=== PATIENT | male | born 1940 | race Caucasian/White ===

== ENCOUNTER 2020-02-08 10:39 | Outpatient (REF) | payer MEDICARE, SELFPAY ==
[2020-02-08 12:01] LABS: Basophils Percent Auto 0.4 % (0-2); Eosinophils Absolute Auto 0.1 X10*3/uL (0.0-0.4); Eosinophils Percent Auto 0.6 % (0-4); Hematocrit 48.6 % (42-52); Hemoglobin 16.7 g/dl (14.0-18.0); Imm Gran Abs Auto 0.03 X10*3/uL (0.00-0.03); Imm Gran Pct Auto 0.4 % (0.0-0.4); Lymphocytes Absolute Auto 1.2 X10*3/uL (1.2-4.9); MANUAL DIFF FLAG NO; Mean Corpuscular HGB Conc 34.4 g/dl (31.0-36.0); Mean Corpuscular Hemoglobin 31.6 pg (27.0-33.0); Mean Platelet Volume 9.8 fL (9.4-12.4); Monocytes Absolute Auto 0.5 X10*3/uL (0.1-1.2); Monocytes Percent Auto 6.7 % (2-11); Neutrophils Absolute Auto 5.9 X10*3/uL (2.0-8.3); Neutrophils Percent Auto 75.9 % (45-73); Platelet Count 180 X10*3/uL (160-400); Red Blood Count 5.28 X10*6/uL (4.60-5.80); Red Cell Distribution Width 12.3 % (11.0-16.0); White Blood Count 7.7 X10*3/uL (4.8-10.8)
[2020-02-08 12:25] LABS: Alanine Aminotransferase 28 U/L (0-40); Albumin Level 4.2 g/dL (3.5-5.0); Alkaline Phosphatase 67 U/L (39-117); Anion Gap 14 (12-20); Aspartate Amino Transferase 20 U/L (5-37); Bilirubin Total 0.6 mg/dL (0.0-1.0); Blood Urea Nitrogen 15 mg/dL (9-16); Calcium 8.9 mg/dL (8.4-10.2); Carbon Dioxide 28 mmol/L (22-29); Chloride 100 mmol/L (96-108); Cholesterol 153 mg/dL; Estimated Glomerular Filt Rate > 60; Glucose Fasting 111 mg/dL (60-99); HDL Cholesterol 47 mg/dL; LDL Cholesterol Calculated 87 mg/dl; Potassium 3.9 mmol/l (3.3-5.1); Sodium 138 mmol/L (135-145); Total Protein 7.2 g/dL (6.5-8.0); Triglycerides 96 mg/dL
[2020-02-08 12:38] LABS: Glucose Urine UA NEG (NEG); Leukocyte Esterase Urine NEG (NEG); Nitrite Urine NEG (NEG); PH 6.5 (5.0-8.0); Urine Blood NEG (NEG); Urine Ketones NEG (NEG); Urine Protein NEG (NEG-TRACE)
[2020-02-08 12:39] LABS: Appearance Urine CLEAR; Color Urine YELLOW
[2020-02-08 12:48] LABS: T4 Thyroxine 8.3 ug/dL (4.5-12.0); Thyroid Stimulating Hormone 2.35 uIU/mL (0.32-4.0)
[2020-02-08 12:58] LABS: Folate 19.3 ng/mL (> or = 4.0); Vitamin B12 616 pg/mL (200-900)
== END 2020-02-08 10:40 | disposition home or self-care (01) ==
LOC: HO.LAB 10:39
PROVIDERS: PCP Internal Medicine; Visit Provider Internal Medicine
DX: R33.9 Retention of urine, unspecified (principal); J44.9 Chronic obstructive pulmonary disease, unspecified; G40.909 Epilepsy, unspecified, not intractable, without status epilepticus; F41.9 Anxiety disorder, unspecified; N40.0 Benign prostatic hyperplasia without lower urinary tract symptoms; I10 Essential (primary) hypertension
CPT/HCPCS: 36415; 80053; 80061; 81003; 82607; 82746; 84436; 84443; 85025

== ENCOUNTER 2022-02-05 16:16 | Inpatient (IN) | payer MEDICARE, SELFPAY ==
--- NOTE | ~2022-02-05 | CT_ITS ---
EXAMINATION: NONCONTRAST HEAD CT NONCONTRAST CERVICAL SPINE CT INDICATION INFORMATION: Fall. Head strike. COMPARISON: 04/12/2012 TECHNIQUE: Separate noncontrast CT examinations of the head and cervical spine were performed. Coronal and sagittal images were created for each examination at the technologist workstation. This CT examination was performed using dose optimization techniques as appropriate, variously including the following: *Automated exposure control *Adjustment of mA and/or kV according to patient size (this includes techniques or standardized protocols for targeted exams where dose is matched to indication/reason for exam; i.e. extremities or head) *Use of iterative reconstruction technique DLP: 1062 mGy-cm FINDINGS: Head: There is no evidence of acute intracranial hemorrhage or territorial infarction. No abnormal mass effect or midline shift is seen. [place]keon to white matter differentiation is well preserved. No extra-axial fluid collections are identified. No hydrocephalus. Proportional prominence of the ventricles and sulcal spaces is consistent with mild volume loss. Patchy periventricular and deep white matter hypoattenuation is consistent with mild small vessel ischemic changes. Calcifications along the falx and tentorium are progressed from prior imaging. No acute osseous or soft tissue abnormality. Mild mucoperiosteal thickening of the right maxillary sinus. The mastoid air cells and visualized portions of the paranasal sinuses are otherwise well aerated. Cervical spine: There is anatomic alignment of the vertebral bodies and posterior elements. The atlantoaxial and atlantooccipital articulations are intact. Vertebral body heights are maintained. There is multilevel intervertebral disc space narrowing with endplate osteophyte formation and facet arthropathy. Calcific pannus at the dens. No evidence of acute fracture. No prevertebral soft tissue swelling. Emphysema at the lung apices.. The thyroid gland is unremarkable. CT/CT cervical spine wo IV con IMPRESSION: 1. No acute intracranial finding. 2. No acute fracture or malalignment of the cervical spine. Moderate degenerative changes.
--- NOTE | ~2022-02-05 | CT_ITS ---
EXAMINATION: CT CHEST WITH CONTRAST CT ABDOMEN AND PELVIS WITH CONTRAST CLINICAL INFORMATION: Fall. Diminished breath sounds at the right apex. Abdominal trauma. COMPARISON: None. TECHNIQUE: Multidetector volumetric imaging was performed through the chest, abdomen and pelvis following the administration of 85 mL of Omnipaque 350 intravenous contrast. Sagittal and coronal reformatted images were obtained on the technologist's workstation. Axial MIP volume rendering provided. This CT examination was performed using dose optimization techniques as appropriate, variously including the following: *Automated exposure control *Adjustment of mA and/or kV according to patient size (this includes techniques or standardized protocols for targeted exams where dose is matched to indication/reason for exam; i.e. extremities or head) *Use of iterative reconstruction technique DLP: 1091 mGy-cm. FINDINGS: CHEST: Lungs: The central airways are patent. There is filling defect in the right lower lobe bronchus extending into the more distal bronchi with bronchial wall thickening. This can be seen with aspiration. There is severe centrilobular and paraseptal emphysema which is greatest at the lung apices. Dependent bilateral atelectasis. No pneumothorax. No pleural effusion. Mediastinum: The heart is of normal size. There is no pericardial effusion. Central vascular structures are unremarkable. No hilar or mediastinal lymphadenopathy. Coronary Artery Calcification: Present. Chest Wall/Axilla: No lymphadenopathy. No chest wall mass. ABDOMEN/PELVIS: Liver, Gallbladder, Biliary Tree: The liver is normal in size, shape, and attenuation. No focal hepatic lesion. Cholecystectomy with mild intrahepatic and extrahepatic biliary ductal dilatation. No definite ductal filling defect seen. Pancreas: Unremarkable. Spleen: Unremarkable. Adrenal Glands: Thickening of both adrenal glands with no focal nodule identified. Kidneys and Ureters: The kidneys are normal in size, shape, and attenuation. No hydronephrosis, hydroureter or calculi seen. No perinephric stranding. Left lower pole simple cyst. No follow-up imaging recommended. Bladder: Distended bladder without wall thickening. Gastrointestinal Tract: The stomach is unremarkable. Normal caliber small bowel. No obstruction. Colonic diverticulosis without diverticulitis. No colonic wall thickening or adjacent inflammation. No free air or free fluid. The appendix is unremarkable. Abdominal Wall: No hernia is demonstrated. Lymphovascular Structures: Lymph nodes: Normal. Vascular: Normal caliber aorta with mild atherosclerotic calcification. Retroaortic left renal vein. Pelvic Viscera: The prostate and seminal vesicles are unremarkable. OSSEOUS STRUCTURES: No acute or suspicious osseous abnormality. Vertebral body height and alignment maintained. Diffuse endplate osteophytes are present. Motion limits evaluation of the ribs with no definite displaced rib fracture identified. Mild degenerative changes of the hips. CT/CT abdomen pelvis w IV con IMPRESSION: 1. No acute traumatic finding of the chest, abdomen, or pelvis. 2. Severe emphysema. Filling defect in the right lower lobe bronchus with bronchial wall thickening. This can be seen with aspiration. 3. No acute fracture or malalignment of the spine.
--- NOTE | ~2022-02-05 | XR_ITS ---
EXAMINATION: XR CHEST CLINICAL INFORMATION: Trauma with fall COMPARISON: 01/25/2019 TECHNIQUE: Frontal view of the chest was obtained. FINDINGS: No significant abnormality is noted involving the heart, lungs, mediastinum, bony thorax or soft tissues. No acute rib fractures. Some old healed right seventh and eighth rib fractures are present. Mild degenerative changes noted in the spine and shoulders. XR/XR chest 1V IMPRESSION: No acute intrathoracic disease.
--- NOTE | 2022-02-05 16:20 | ECG_ITS ---
Test Reason : FALL WEAKNESS Blood Pressure : / mmHG Vent. Rate : 084 BPM Atrial Rate : 084 BPM P-R Int : 140 ms QRS Dur : 126 ms QT Int : 434 ms P-R-T Axes : 068 067 058 degrees QTc Int : 512 ms Normal sinus rhythm RSR' or QR pattern in V1 suggests right ventricular conduction delay Low voltage QRS Abnormal ECG When compared with ECG of 26-JAN-2019 08:57, Non-specific intra-ventricular conduction block has replaced Right bundle branch block Referred By: Khushboo Church Electronically Signed By:ROSELYN PARKS MD
--- NOTE | 2022-02-05 16:21 | ED.GENADULT ---
HPI - General Adult General Chief complaint: General Medical Stated complaint: fall unknown time weakness Source: patient and EMS Mode of arrival: EMS Limitations: other (Patient poor historian) History of Present Illness HPI narrative: 82-year-old male history of anxiety, hypercholesterolemia, BPH, COPD, hypertension , PVD, seizure disorder presenting to the emergency department via ambulance for complaints of weakness status post falling off of his bed. Patient reports last night he felt sleepy got tangled in his blankets and ended up falling onto the ground, patient tells me he was too weak to get up, he tells me he was trying all day however unable to. Patient tells me he has been feeling weak for a while, patient reports living at home by himself. He tells me when he fell he did not his head or lose consciousness. Patient tells me he feels awful and every things hurting. He denies chest pain, shortness of breath, nausea, vomiting, abdominal pain, vision changes, headache, dizziness. Patient used to be on blood thinners however tells me he is no longer taking them. To note patient poor historian, vague historian Related Data Home Medications Medication Instructions Recorded Confirmed aspirin 81 mg tablet,delayed 81 mg PO DAILY 02/17/20 08/17/20 release (Adult Aspirin Regimen) melatonin 10 mg capsule 10 mg PO BEDTIME PRN 02/17/20 08/17/20 Previous Rx's Medication Instructions Recorded aclidinium bromide 400 1 inh inhalation Q12H 90 days #3 ea 09/06/20 mcg/actuation breath activated powder inhaler (Tudorza Pressair) polyethylene glycol 3350 17 17 g PO DAILY 30 days #510 grams 09/14/20 gram/dose oral powder (Miralax) levetiracetam 500 mg tablet 500 mg PO BID #180 tabs 01/26/21 trazodone 50 mg tablet 200 mg PO BEDTIME PRN for insomnia 03/19/21 #360 tabs lorazepam 0.5 mg tablet 0.5 mg PO BEDTIME PRN anxiety #90 06/06/21 tabs mirtazapine 15 mg tablet 15 mg PO BEDTIME 90 days #90 tabs 06/06/21 tamsulosin 0.4 mg capsule 0.4 mg PO DAILY 90 days #90 caps 06/06/21 hydrochlorothiazide 25 mg tablet 25 mg PO DAILY #90 tabs 07/17/21 Allergies Allergy/AdvReac Type Severity Reaction Status Date / Time No Known Allergies Allergy Verified 02/05/22 19:19 Review of Systems Review of Systems: Constitutional : No Weight loss, No Fever, No Chills, + Fatigue, + Malaise ENT/Mouth : No sore throat, No Rhinorrhea Eyes: No Eye Pain, No Swelling, No Redness Cardiovascular : No Chest Pain, No SOB, No Dyspnea on Exertion, No Orthopnea, No Edema, No Palpitations Respiratory : No Cough, No Sputum, No Wheezing Gastrointestinal : No Nausea, No Vomiting, No Diarrhea, No Constipation, No abdominal Pain, No Hematochezia, No Melena Genitourinary : No Dysuria, No Urinary Frequency, No Hematuria, Musculoskeletal : + joint pain, No Myalgias, No Joint Swelling Skin : No Skin Lesions, No rash Neuro : + Weakness, No Numbness, No Dizziness, No Headache Psych : No Anxiety/Panic, No Depression All other systems reviewed and are negative Yes all other systems are reviewed and are negative [facility] Past Medical History Attestation statement: The following information was validated with the patient. Source: old records reviewed and nursing notes reviewed Medical History Anxiety BPH (benign prostatic hyperplasia) COPD (chronic obstructive pulmonary disease) Hygroma Hypercholesterolemia Hypertension Impaired glucose tolerance Insomnia Peripheral vascular disease Seizure disorder Surgical History Back pain with history of spinal surgery History of cataract surgery History of cholecystectomy History of nasal surgery History of ventral hernia repair Family History Family History Father Cancer Mother Hypertension Social History Social History Advance Directives: No Advance Directives Information Provided: No Physical Exam ED Vital Signs: Vital Signs - 24 hr 02/05/22 19:50 02/05/22 19:21 02/05/22 20:17 Pulse Rate 80 84 Respiratory Rate 18 Blood Pressure 93/54 L 111/68 128/73 Pulse Oximetry 94 Oxygen Delivery Method Room Air BMI result Body Mass Index 19.5 vss Appearance: Alert.? Oriented X3.? No acute distress.? Patient appears weak and frail. Unkempt. Head: Normocephalic, atraumatic, no step-offs or deformities Eyes: Pupils equal, round and reactive to light.? Neck: Normal inspection.? Neck supple.? CVS: Normal heart rate and rhythm.? Pulses normal.? Respiratory: No respiratory distress.? Breath sounds diminished b./l.? Abdomen: Soft and nontender.? Skin: Skin warm and dry.? Normal skin color.? Normal skin turgor.? Extremities: No lower extremity edema.? No calf ttp. Global weakness. Unable to lift lower extremities off bed, no foot drop. Full painless ROM to b/l UE. Normal sensation to UE & LE. Patient tells me he feels too weak to ambulate. Back: No midline tenderness. Full ROM Neuro: Oriented X 3.? No motor deficit.? No sensory deficit. CN 2-12 intact. No saddle paresthesias Course Reevaluation(s) Reevaluation #1: Patient noted to have elevated white blood cell count 13.6, BUN slightly elevated likely secondary to dehydration. Negative lactic acid. Urine clean. Creatinine kinase not showing rhabdomyolysis. Troponin not meeting criteria for doubling the delta, unlikely ACS. BNP 115. CT of the head, neck, abdomen and pelvis with no acute findings. Patient's chest CT concerning for pneumonia possible aspiration. Will cover with Unasyn. Patient with global weakness and aspiration pneumonia will admit to hospitalist for further evaluation and treatment. Time: 21:02 Medications Administered Discontinued Medications Generic Name Dose Route Start Last Admin Trade Name Freq PRN Reason Stop Dose Admin Sodium Chloride 1,000 mls @ 999 mls/hr 02/05/22 18:45 02/05/22 20:15 Ns IV 02/05/22 19:45 Infused .Q1H1M VARUN Infusion Iohexol 100 ml 02/05/22 19:16 02/05/22 19:17 Iohexol 350 Mg/Ml 100 Ml Infus..Btl IV 02/05/22 19:17 85 ml ONCE ONE Administration Medical Decision Making MDM Narrative Medical decision making narrative: 1630 82-year-old male presents status post falling out of his bed unknown down time, patient not on blood thinners. Patient reporting weakness. No other medical complaints at this time. Physical exam significant for frail-appearing male with global weakness. Unable to lift lower extremities off bed, no foot drop. Full painless ROM to b/l UE. Normal sensation to UE & LE. Diminished breath sounds bilaterally. Regular rate and rhythm. Abdomen soft nontender nondistended. Neuro nonfocal. Normal sensation to upper and lower extremities. No back pain. Concerns for possible UTI,PNA electrolyte abnormalities. Will obtain basic labs, imaging, salgado scans, CPK to rule out rhabdo. Will obtain EKG to look for potential dysrhythmias. Based off patient's examination low suspicion for intracranial hemorrhage or stroke on arrival GCS of 15. In unable to assess accurate NIH stroke scale as patient was unable to lift his lower extremities off of the bed secondary to weakness. Also concern for possible pelvic injury secondary to patient not being able to lift lower extremities off of the bed. Will rule out traumatic injuries, internal bleeding . Patient will be placed on continuous cardiac monitoring. Will wait to initiate fluids until BNP is obtained. Ariadne BACON. Medical Records Medical records reviewed: Yes I reviewed the patient's medical records. Lab Data Lab results reviewed: Yes I reviewed the patient's lab results. Result diagrams: 02/05/22 17:29 02/05/22 17:29 Labs: Lab Results 02/05/22 02/05/22 02/05/22 Range/Units 16:55 17:29 17:29 WBC 13.6 H (4.8-10.8) X10*3/uL RBC 5.18 (4.60-5.80) X10*6/uL Hgb 16.1 (14.0-18.0) g/dl Hct 45.2 (42.0-52.0) % MCV 87.3 (80.0-98.0) fL MCH 31.1 (27.0-33.0) pg MCHC 35.6 (31.0-36.0) g/dl RDW 12.5 (11.0-16.0) % Plt Count 153 L (160-400) X10*3/uL MPV 9.5 (9.4-12.4) fL Immature Gran % (Auto) 0.6 H (0.0-0.4) % Neut % (Auto) 91.8 H (45-73) % Lymph % (Auto) 2.7 L (20-40) % [place] % (Auto) 4.8 (2-11) % Eos % (Auto) 0.0 (0-4) % Baso % (Auto) 0.1 (0-2) % Lymph # (Auto) 0.4 L (1.2-4.9) X10*3/uL [place] # (Auto) 0.7 (0.1-1.2) X10*3/uL Eos # (Auto) 0.0 (0.0-0.4) X10*3/uL Baso # (Auto) 0.0 (0.0-0.2) X10*3/uL Abs Immat Gran (auto) 0.08 H (0.00-0.03) X10*3/uL Absolute Neuts (auto) 12.5 H (2.0-8.3) x10*3/uL Absolute Nucleated RBC 0.000 (0.0-0.012) X10*3/uL Nucleated RBC % (auto) 0.0 (0.0-0.2) /100WBC Smear Tech's Comments VERIFIED PT 15.1 H (10.0-13.1) SEC INR 1.3 H (0.9-1.1) Sodium 134 L (135-145) mmol/L Potassium 4.0 (3.3-5.1) mmol/L Chloride 99 (96-108) mmol/L Carbon Dioxide 19 L (22-29) mmol/L Anion Gap 20 (12-20) BUN 21 H (9-16) mg/dL Creatinine 0.82 (0.5-1.4) mg/dL Estim Creat Clear Calc 59.8 Estimated GFR > 60 Random Glucose 119 H (60-115) mg/dL Lactic Acid (0.5-2.0) mmol/L Calcium 9.0 (8.4-10.2) mg/dL Magnesium 1.9 (1.6-2.6) mg/dL Total Bilirubin 0.3 (0.0-1.0) mg/dL AST 23 (5-37) U/L ALT 17 (0-40) U/L Alkaline Phosphatase 65 (39-117) U/L Total Creatine Kinase 394 H (38-174) U/L Troponin I High Sens (<3.5-35.0) ng/L B-Natriuretic Peptide (<100) pg/mL Total Protein 6.9 (6.5-8.0) g/dL Albumin 3.9 (3.5-5.0) g/dL Urine Color Urine Appearance Urine pH (5.0-9.0) Ur Specific [place] (1.005-1.025) Urine Protein (Neg-Trace) mg/dL Urine Glucose (UA) (Negative) mg/dL Urine Ketones (Negative) mg/dL Urine Blood (Negative) Urine Nitrite (Negative) Ur Leukocyte Esterase (Negative) Urine RBC (0-2) /HPF Urine WBC (0-5) /HPF Ur Squamous Epith Cells (0-2) /HPF Urine Bacteria (None Seen) Hyaline Casts (0-2) /LPF 02/05/22 02/05/22 02/05/22 Range/Units 17:29 17:29 19:29 WBC (4.8-10.8) X10*3/uL RBC (4.60-5.80) X10*6/uL Hgb (14.0-18.0) g/dl Hct (42.0-52.0) % MCV (80.0-98.0) fL MCH (27.0-33.0) pg MCHC (31.0-36.0) g/dl RDW (11.0-16.0) % Plt Count (160-400) X10*3/uL MPV (9.4-12.4) fL Immature Gran % (Auto) (0.0-0.4) % Neut % (Auto) (45-73) % Lymph % (Auto) (20-40) % [place] % (Auto) (2-11) % Eos % (Auto) (0-4) % Baso % (Auto) (0-2) % Lymph # (Auto) (1.2-4.9) X10*3/uL [place] # (Auto) (0.1-1.2) X10*3/uL Eos # (Auto) (0.0-0.4) X10*3/uL Baso # (Auto) (0.0-0.2) X10*3/uL Abs Immat Gran (auto) (0.00-0.03) X10*3/uL Absolute Neuts (auto) (2.0-8.3) x10*3/uL Absolute Nucleated RBC (0.0-0.012) X10*3/uL Nucleated RBC % (auto) (0.0-0.2) /100WBC Smear Tech's Comments PT (10.0-13.1) SEC INR (0.9-1.1) Sodium (135-145) mmol/L Potassium (3.3-5.1) mmol/L Chloride (96-108) mmol/L Carbon Dioxide (22-29) mmol/L Anion Gap (12-20) BUN (9-16) mg/dL Creatinine (0.5-1.4) mg/dL Estim Creat Clear Calc Estimated GFR Random Glucose (60-115) mg/dL Lactic Acid 1.9 (0.5-2.0) mmol/L Calcium (8.4-10.2) mg/dL Magnesium (1.6-2.6) mg/dL Total Bilirubin (0.0-1.0) mg/dL AST (5-37) U/L ALT (0-40) U/L Alkaline Phosphatase (39-117) U/L Total Creatine Kinase (38-174) U/L Troponin I High Sens 11.9 (<3.5-35.0) ng/L B-Natriuretic Peptide 115 H (<100) pg/mL Total Protein (6.5-8.0) g/dL Albumin (3.5-5.0) g/dL Urine Color Urine Appearance Urine pH (5.0-9.0) Ur Specific [place] (1.005-1.025) Urine Protein (Neg-Trace) mg/dL Urine Glucose (UA) (Negative) mg/dL Urine Ketones (Negative) mg/dL Urine Blood (Negative) Urine Nitrite (Negative) Ur Leukocyte Esterase (Negative) Urine RBC (0-2) /HPF Urine WBC (0-5) /HPF Ur Squamous Epith Cells (0-2) /HPF Urine Bacteria (None Seen) Hyaline Casts (0-2) /LPF 02/05/22 02/05/22 02/05/22 Range/Units 19:29 20:15 20:15 WBC (4.8-10.8) X10*3/uL RBC (4.60-5.80) X10*6/uL Hgb (14.0-18.0) g/dl Hct (42.0-52.0) % MCV (80.0-98.0) fL MCH (27.0-33.0) pg MCHC (31.0-36.0) g/dl RDW (11.0-16.0) % Plt Count (160-400) X10*3/uL MPV (9.4-12.4) fL Immature Gran % (Auto) (0.0-0.4) % Neut % (Auto) (45-73) % Lymph % (Auto) (20-40) % [place] % (Auto) (2-11) % Eos % (Auto) (0-4) % Baso % (Auto) (0-2) % Lymph # (Auto) (1.2-4.9) X10*3/uL [place] # (Auto) (0.1-1.2) X10*3/uL Eos # (Auto) (0.0-0.4) X10*3/uL Baso # (Auto) (0.0-0.2) X10*3/uL Abs Immat Gran (auto) (0.00-0.03) X10*3/uL Absolute Neuts (auto) (2.0-8.3) x10*3/uL Absolute Nucleated RBC (0.0-0.012) X10*3/uL Nucleated RBC % (auto) (0.0-0.2) /100WBC Smear Tech's Comments PT (10.0-13.1) SEC INR (0.9-1.1) Sodium (135-145) mmol/L Potassium (3.3-5.1) mmol/L Chloride (96-108) mmol/L Carbon Dioxide (22-29) mmol/L Anion Gap (12-20) BUN (9-16) mg/dL Creatinine (0.5-1.4) mg/dL Estim Creat Clear Calc Estimated GFR Random Glucose (60-115) mg/dL Lactic Acid (0.5-2.0) mmol/L Calcium (8.4-10.2) mg/dL Magnesium (1.6-2.6) mg/dL Total Bilirubin (0.0-1.0) mg/dL AST (5-37) U/L ALT (0-40) U/L Alkaline Phosphatase (39-117) U/L Total Creatine Kinase 297 H (38-174) U/L Troponin I High Sens 15.3 (<3.5-35.0) ng/L B-Natriuretic Peptide (<100) pg/mL Total Protein (6.5-8.0) g/dL Albumin (3.5-5.0) g/dL Urine Color Yellow Urine Appearance Clear Urine pH 5.5 (5.0-9.0) Ur Specific [place] 1.015 (1.005-1.025) Urine Protein Negative (Neg-Trace) mg/dL Urine Glucose (UA) Negative (Negative) mg/dL Urine Ketones 40 (Negative) mg/dL Urine Blood Small (1+) H (Negative) Urine Nitrite Negative (Negative) Ur Leukocyte Esterase Negative (Negative) Urine RBC 6-10 H (0-2) /HPF Urine WBC 0-5 (0-5) /HPF Ur Squamous Epith Cells 0-2 (0-2) /HPF Urine Bacteria None Seen (None Seen) Hyaline Casts 0-2 (0-2) /LPF ECG Data Attestation: I personally reviewed and interpreted this ECG as follows: Prior ECG tracings: available for review Interpretation: Patient's EKG with rate of 84, AR normal, QRS normal, QT/QTC normal. EKG with normal sinus rhythm no ST elevations or inversions concerning for ischemia. No significant changes when compared to previous Critical Care Time Critical Care Time Critical Care Time: No Discharge Plan Discharge Clinical Impression: Fall, Aspiration pneumonia, Weakness Patient Disposition: Admitted As Inpatient
[2022-02-05 16:24] VITALS: BMI 19.5
[2022-02-05 17:09] LABS: INTERNATIONAL NORM RATIO 1.3 (0.9-1.1); Prothrombin Time 15.1 SEC (10.0-13.1)
[2022-02-05 17:53] LABS: Basophils Percent Auto 0.1 % (0-2); Hematocrit 45.2 % (42.0-52.0); Hemoglobin 16.1 g/dl (14.0-18.0); Imm Gran Abs Auto 0.08 X10*3/uL (0.00-0.03); Imm Gran Pct Auto 0.6 % (0.0-0.4); Lymphocytes Absolute Auto 0.4 X10*3/uL (1.2-4.9); Lymphocytes Percent Auto 2.7 % (20-40); MANUAL DIFF FLAG SCAN; Mean Corpuscular HGB Conc 35.6 g/dl (31.0-36.0); Mean Corpuscular Hemoglobin 31.1 pg (27.0-33.0); Mean Corpuscular Volume 87.3 fL (80.0-98.0); Mean Platelet Volume 9.5 fL (9.4-12.4); Monocytes Absolute Auto 0.7 X10*3/uL (0.1-1.2); Monocytes Percent Auto 4.8 % (2-11); Neutrophils Absolute Auto 12.5 x10*3/uL (2.0-8.3); Neutrophils Percent Auto 91.8 % (45-73); Platelet Count 153 X10*3/uL (160-400); Red Blood Count 5.18 X10*6/uL (4.60-5.80); Red Cell Distribution Width 12.5 % (11.0-16.0); SCAN SMEAR FLAG 1; White Blood Count 13.6 X10*3/uL (4.8-10.8)
[2022-02-05 17:55] LABS: Alanine Aminotransferase 17 U/L (0-40); Albumin Level 3.9 g/dL (3.5-5.0); Alkaline Phosphatase 65 U/L (39-117); Anion Gap 20 (12-20); Aspartate Amino Transferase 23 U/L (5-37); Bilirubin Total 0.3 mg/dL (0.0-1.0); Blood Urea Nitrogen 21 mg/dL (9-16); Carbon Dioxide 19 mmol/L (22-29); Chloride 99 mmol/L (96-108); Creatinine Clr Calc Pharmacy 59.8; Estimated Glomerular Filt Rate > 60; Glucose Random 119 mg/dL (60-115); Magnesium 1.9 mg/dL (1.6-2.6); Sodium 134 mmol/L (135-145); Total Protein 6.9 g/dL (6.5-8.0)
[2022-02-05 18:00] LABS: B Type Natriuretic Peptide 115 pg/mL (<100)
[2022-02-05 18:04] LABS: Troponin-I High Sensitivity 11.9 ng/L (<3.5-35.0)
[2022-02-05 18:12] LABS: SLIDE REVIEW VERIFIED
[2022-02-05] MEDS: iohexoL 350 MG/ML 100 ML INFUS..BTL IV (19:17)
[2022-02-05] MEDS: 0.9 % Sodium Chloride 1,000 ML 999 ML IV (19:18)
[2022-02-05 19:21] VITALS: BP 111/68; PULSE 84
[2022-02-05 19:43] LABS: Appearance Urine Clear; Color Urine Yellow; Glucose Urine UA Negative (Negative); Leukocyte Esterase Urine Negative (Negative); Nitrite Urine Negative (Negative); PH 5.5 (5.0-9.0); Specific Gravity - Urine 1.015 (1.005-1.025); UMIC TRIGGER UACC YES; Urine Blood Small (1+) (Negative); Urine Ketones 40 mg/dL (Negative); Urine Protein Negative (Neg-Trace)
[2022-02-05 19:49] LABS: Bacteria Urine None Seen (None Seen); Hyaline Casts Urine 0-2 /LPF (0-2); Lactic Acid 1.9 mmol/L (0.5-2.0); Squamous Epithelial Cell Urine 0-2 /HPF (0-2); WBC Urine 0-5 /HPF (0-5)
[2022-02-05 19:50] VITALS: BP 93/54; PULSE 80; RESP 18; O2SAT 94
[2022-02-05 20:17] VITALS: BP 128/73
[2022-02-05 20:49] LABS: Troponin-I High Sensitivity 15.3 ng/L (<3.5-35.0)
[2022-02-05] MEDS: Ampicillin Sodium/Sulbactam Na 3 GM in 0.9 % Sodium Chloride 100 ML IV (21:32)
--- NOTE | 2022-02-05 21:55 | PHA.MEDREC ---
Pharmacy Consult ? Medication Reconciliation Pharmacy has completed the medication reconciliation. Patient knew medication. Stated he was on HCTZ but ran out and hasn't been to in 2 years
--- NOTE | 2022-02-05 22:17 | PM.IMHP ---
History of Present Illness Date of Service: 02/05/22 Chief Complaint: suicide attempt, weakness, fall, pna This is an 82-year-old male with past medical history of COPD, BPH, depression anxiety, HLD, HTN, peripheral vascular disease, and history of seizure disorder,. The initial story I was presented with was that patient had come in to the hospital via ambulance with complaints of weakness and fall. He reported to the ED that he had fallen off his bed and that he was on the floor for unknown period of time. When I interviewed the patient, and asked about his presentation, he reports that he came into the hospital because he tired to take my life again . When asked more about it, he reports that he took 25 pills of aspirin, 15 pills of antidepressant, 20 pills of melatonin. He reports that he was trying to sleep, had difficulty sleeping, woke up at 04:00, with urinary urgency, could not pee, felt very depressed, and took these medications to see if they could help him sleep. He reports a chronic smoker's cough, shortness of breath that is SP his baseline, sputum production at baseline. He at this time denies any chest pain, no palpitations, no headache or change in vision, no abdominal pain nausea or vomiting, no diarrhea constipation, no urinary symptoms and no lower extremity edema. He reports that he has been feeling significantly more depressed about his state. He lives alone. Patient denies suicidal ideation at this time. He does report difficulty swallowing some foods and feels that some things sometimes get stuck in his throat. On arrival to the ED hemodynamically stable with no significant abnormal vitals Labs are significant for WBC count of 13.6, pH of 7.45, sodium of 134, CPK of 394, BNP of 115, UA negative, after we were told that the patient took 20 pills of aspirin, salicylate level was checked which was found to be 40.6, urine drug screen negative. Chest CT shows severe emphysema, filling defect in the right lower lobe bronchus with bronchial wall thickening seen with aspiration. Poison control was called, and patient will be admitted for further management. Review of Systems Review of Systems: Yes all other systems are reviewed and are negative [facility] Medical History Anxiety BPH (benign prostatic hyperplasia) COPD (chronic obstructive pulmonary disease) Hygroma Hypercholesterolemia Hypertension Impaired glucose tolerance Insomnia Peripheral vascular disease Seizure disorder Family History Father Cancer Mother Hypertension Surgical History Back pain with history of spinal surgery History of cataract surgery History of cholecystectomy History of nasal surgery History of ventral hernia repair Social History Advance Directives: No Advance Directives Information Provided: No Meds Allergies Allergy/AdvReac Type Severity Reaction Status Date / Time No Known Allergies Allergy Verified 02/05/22 19:19 Active Medications: Current Medications Pharmacy Consult (Consult Rx Perform Med Rec) 1 each MISCELLANE ONCE PRN PRN Reason: Consult order Home Medications Medication Instructions Recorded Confirmed Last Taken Type aspirin 81 mg tablet,delayed 81 mg PO DAILY 02/17/20 02/05/22 02/04/22 History release (Adult Aspirin Regimen) melatonin 10 mg capsule 10 mg PO BEDTIME PRN Insomnia 02/17/20 02/05/22 02/04/22 History polyethylene glycol 3350 17 17 g PO DAILY PRN Constipation 02/05/22 02/05/22 02/04/22 History gram/dose oral powder (Miralax) Physical Exam Vital Signs and Narrative: Vital Signs: Last Vital Signs Pulse 80 02/05/22 19:50 Resp 18 02/05/22 19:50 BP 128/73 02/05/22 20:17 Pulse Ox 94 02/05/22 19:50 O2 Del Method 02/05/22 19:50 BMI result Body Mass Index 19.5 Const: Other: Appears appropriate Answers questions appropriately although sometimes diverge is from Barb story but able to redirect General: cooperative and no acute distress Orientation/consciousness: patient oriented x3 Eyes: General: appearance normal, both eyes and all related structures Resp: Other: Crackles bilaterally Effort & Inspection: normal respiratory effort Cardio: Rate: regular rate Rhythm: regular rhythm GI: Palpation (GI): Soft to palpation Auscultation: normal bowel sounds Skin: General skin exam: no rashes or lesions noted Neuro: General: patient oriented x3 Cognition (Neuro): normal cognition Extrem: General: Yes normal to inspection and Yes no pedal edema Results Labs CBC and Chem 7: 02/05/22 17:29 02/06/22 03:47 Labs: Laboratory Results - last 24 hr 02/05/22 02/05/22 02/05/22 16:55 17:29 17:29 MCV 87.3 MCH 31.1 MCHC 35.6 RDW 12.5 Plt Count 153 L MPV 9.5 Immature Gran % (Auto) 0.6 H Neut % (Auto) 91.8 H Lymph % (Auto) 2.7 L [place] % (Auto) 4.8 Eos % (Auto) 0.0 Baso % (Auto) 0.1 Lymph # (Auto) 0.4 L [place] # (Auto) 0.7 Eos # (Auto) 0.0 Baso # (Auto) 0.0 Abs Immat Gran (auto) 0.08 H Absolute Neuts (auto) 12.5 H Absolute Nucleated RBC 0.000 Nucleated RBC % (auto) 0.0 Smear Tech's Comments VERIFIED PT 15.1 H INR 1.3 H Anion Gap 20 Estim Creat Clear Calc 59.8 Estimated GFR > 60 Random Glucose 119 H Lactic Acid Calcium 9.0 Magnesium 1.9 Total Bilirubin 0.3 AST 23 ALT 17 Alkaline Phosphatase 65 Total Creatine Kinase 394 H Troponin I High Sens B-Natriuretic Peptide Total Protein 6.9 Albumin 3.9 Urine Color Urine Appearance Urine pH Ur Specific [place] Urine Protein Urine Glucose (UA) Urine Ketones Urine Blood Urine Nitrite Ur Leukocyte Esterase Urine RBC Urine WBC Ur Squamous Epith Cells Urine Bacteria Hyaline Casts 02/05/22 02/05/22 02/05/22 17:29 17:29 19:29 MCV MCH MCHC RDW Plt Count MPV Immature Gran % (Auto) Neut % (Auto) Lymph % (Auto) [place] % (Auto) Eos % (Auto) Baso % (Auto) Lymph # (Auto) [place] # (Auto) Eos # (Auto) Baso # (Auto) Abs Immat Gran (auto) Absolute Neuts (auto) Absolute Nucleated RBC Nucleated RBC % (auto) Smear Tech's Comments PT INR Anion Gap Estim Creat Clear Calc Estimated GFR Random Glucose Lactic Acid 1.9 Calcium Magnesium Total Bilirubin AST ALT Alkaline Phosphatase Total Creatine Kinase Troponin I High Sens 11.9 B-Natriuretic Peptide 115 H Total Protein Albumin Urine Color Urine Appearance Urine pH Ur Specific [place] Urine Protein Urine Glucose (UA) Urine Ketones Urine Blood Urine Nitrite Ur Leukocyte Esterase Urine RBC Urine WBC Ur Squamous Epith Cells Urine Bacteria Hyaline Casts 02/05/22 02/05/22 02/05/22 19:29 20:15 20:15 MCV MCH MCHC RDW Plt Count MPV Immature Gran % (Auto) Neut % (Auto) Lymph % (Auto) [place] % (Auto) Eos % (Auto) Baso % (Auto) Lymph # (Auto) [place] # (Auto) Eos # (Auto) Baso # (Auto) Abs Immat Gran (auto) Absolute Neuts (auto) Absolute Nucleated RBC Nucleated RBC % (auto) Smear Tech's Comments PT INR Anion Gap Estim Creat Clear Calc Estimated GFR Random Glucose Lactic Acid Calcium Magnesium Total Bilirubin AST ALT Alkaline Phosphatase Total Creatine Kinase 297 H Troponin I High Sens 15.3 B-Natriuretic Peptide Total Protein Albumin Urine Color Yellow Urine Appearance Clear Urine pH 5.5 Ur Specific [place] 1.015 Urine Protein Negative Urine Glucose (UA) Negative Urine Ketones 40 Urine Blood Small (1+) H Urine Nitrite Negative Ur Leukocyte Esterase Negative Urine RBC 6-10 H Urine WBC 0-5 Ur Squamous Epith Cells 0-2 Urine Bacteria None Seen Hyaline Casts 0-2 Imaging Radiologist's Impressions: Impressions Chest X-Ray 02/05/22 18:00 IMPRESSION: No acute intrathoracic disease. Cervical Spine CT 02/05/22 19:24 IMPRESSION: 1. No acute intracranial finding. 2. No acute fracture or malalignment of the cervical spine. Moderate degenerative changes. Head CT 02/05/22 19:24 IMPRESSION: 1. No acute intracranial finding. 2. No acute fracture or malalignment of the cervical spine. Moderate degenerative changes. Abdomen/Pelvis CT 02/05/22 19:25 IMPRESSION: 1. No acute traumatic finding of the chest, abdomen, or pelvis. 2. Severe emphysema. Filling defect in the right lower lobe bronchus with bronchial wall thickening. This can be seen with aspiration. 3. No acute fracture or malalignment of the spine. Chest CT 02/05/22 19:25 IMPRESSION: 1. No acute traumatic finding of the chest, abdomen, or pelvis. 2. Severe emphysema. Filling defect in the right lower lobe bronchus with bronchial wall thickening. This can be seen with aspiration. 3. No acute fracture or malalignment of the spine. Assessment and Plan (1) Aspiration pneumonia: Status: Acute (2) Suicide attempt: Status: Acute (3) Intentional drug overdose: Status: Acute (4) Fall: Status: Acute Plan 82-year-old male with past medical history of COPD, hypertension, hyperlipidemia, anxiety and depression, peripheral vascular disease presents to the hospital after attempting to kill himself by intentionally overdosing on aspirin, antidepressant and melatonin # suicidal attempt by intentional drug overdose - reports taking 25 pills of aspirin, 15 pills on antidepressants in 20 pills of 10 mg melatonin - patient hemodynamically stable, no QTC prolongation, has salicylate level of over 40 - poison control called, requesting repeat VBG, potassium, salicylate level, 3 amps of bicarb at 150 cc an hour, - will admit to telemetry - sitter at bedside - psych consulted # aspiration pneumonia - has evidence of aspiration pneumonia, he denies having any vomiting but reports that he has difficulty swallowing - will cover him with antibiotics for aspiration pneumonia - keep NPO - consult speech # fall - likely secondary to lethargy in the setting of overdosing on melatonin and antidepressant although he does not remember the name of the antidepressant - physical therapy prior to discharge # hypertension - stable - will continue antihypertensive # hyperlipidemia - continue statin # peripheral vascular - hold aspirin # COPD - have baseline - DuoNeb p.r.n. DVT prophylaxis: Heparin subQ Given patient's drug overdose, requiring frequent lab draws, as well as aspiration pneumonia requiring speech evaluation, patient require minimal 2 night inpatient hospital stay for further management and monitoring Quality Stroke Does the patient have a stroke diagnosis?: No VTE Prior VTE?: No VTE Risk Level:: Medical - moderate - high VTE Device Contraindication: Treatment Not Indicated VTE Drug Contraindication: N/A - Med Ordered
--- NOTE | 2022-02-05 23:00 | PC.NURSE ---
Pt report taking to 25 ASA, 20 melatonin at 10 mg, and 15 of antidepressants that are unknown. Hospitalist at beside. Pt placed on 1:1
[2022-02-05 23:04] LABS: Amphetamine Screen Urine Not Detected (Not Detect); Barbiturates, Urine Not Detected (Not Detect); Benzodiazepines Screen Urine Not Detected (Not Detect); Cannabinoid Screen Urine Not Detected (Not Detect); Cocaine Screen Urine Not Detected (Not Detect); Fentanyl, urine Not Detected (Not Detect); Opiate Screen Urine Not Detected (Not Detect); Phencyclidine Screen Urine Not Detected (Not Detect)
[2022-02-05 23:07] LABS: Acetaminophen LAB < 1 mcg/mL (<30); Salicylate 40.6 mg/dL (15-30)
--- NOTE | 2022-02-05 23:31 | PC.NURSE ---
This RN called poison control spoke to Fabienne. This RN passed all recommendation from poison control to Hospitalist orders placed.
[2022-02-05 23:36] LABS: COVID-19 Test Negative (Negative); IDNOW Serial# BCCEAD1C
[2022-02-06] VITALS (11 sets, daily range): BP systolic 98–137; BP diastolic 54–81; PULSE 78–119; RESP 16–22; TEMP 36.2–37.1; O2SAT 92–97
[2022-02-06 00:08] LABS: VBG Base Excess -3.8 mmol/L; VBG HCO3 18 mmol/L (22-26); VBG pCO2 25 mmHg; VBG pH 7.45 (7.32-7.43); VBG pO2 54 mmHg
[2022-02-06 00:10] LABS: Venous Blood Gas Refer to POC result
[2022-02-06] MEDS: Lactated Ringers 1,000 ML 100 ML IVCONT ×2 (00:31→08:54)
[2022-02-06 00:43] LABS: Alanine Aminotransferase 21 U/L (0-40); Albumin Level 3.6 g/dL (3.5-5.0); Alkaline Phosphatase 61 U/L (39-117); Anion Gap 20 (12-20); Aspartate Amino Transferase 35 U/L (5-37); Bilirubin Total 0.2 mg/dL (0.0-1.0); Blood Urea Nitrogen 20 mg/dL (9-16); Calcium 8.5 mg/dL (8.4-10.2); Carbon Dioxide 17 mmol/L (22-29); Chloride 102 mmol/L (96-108); Creatinine Clr Calc Pharmacy 66.3; Estimated Glomerular Filt Rate > 60; Glucose Random 92 mg/dL (60-115); Potassium 4.4 mmol/L (3.3-5.1); Sodium 135 mmol/L (135-145); Total Protein 6.9 g/dL (6.5-8.0)
[2022-02-06] MEDS: Heparin Sodium,Porcine 5,000 UNIT/ML VIAL 5000 UNIT SUBCUT ×3 (00:47→22:35)
[2022-02-06] MEDS: Sodium Bicarbonate 8.4% 150 MEQ in Dextrose 5 % 850 ML IV (00:50)
[2022-02-06 01:05] LABS: Appearance Urine Clear; Color Urine Yellow; Glucose Urine UA Negative (Negative); Leukocyte Esterase Urine Negative (Negative); Nitrite Urine Negative (Negative); PH 5.5 (5.0-9.0); Urine Blood Negative (Negative); Urine Ketones 40 mg/dL (Negative); Urine Protein Negative (Neg-Trace)
[2022-02-06 01:15] LABS: Amphetamine Screen Urine Not Detected (Not Detect); Barbiturates, Urine Not Detected (Not Detect); Benzodiazepines Screen Urine Not Detected (Not Detect); Cannabinoid Screen Urine Not Detected (Not Detect); Cocaine Screen Urine Not Detected (Not Detect); Fentanyl, urine Not Detected (Not Detect); Opiate Screen Urine Not Detected (Not Detect); Phencyclidine Screen Urine Not Detected (Not Detect)
[2022-02-06 02:00] LABS: Venous Blood Gas Refer to POC result
[2022-02-06 02:00] LABS: VBG Base Excess -2.6 mmol/L; VBG HCO3 17 mmol/L (22-26); VBG pCO2 21 mmHg; VBG pH 7.53 (7.32-7.43); VBG pO2 112 mmHg
[2022-02-06 02:15] LABS: Potassium 3.7 mmol/L (3.3-5.1)
[2022-02-06 02:27] LABS: Salicylate 37.1 mg/dL (15-30)
--- NOTE | 2022-02-06 03:25 | ECG_ITS ---
Test Reason : poison control Blood Pressure : / mmHG Vent. Rate : 082 BPM Atrial Rate : 088 BPM P-R Int : 100 ms QRS Dur : 128 ms QT Int : 410 ms P-R-T Axes : 026 062 052 degrees QTc Int : 479 ms Poor data quality Normal sinus rhythm with 1st degree A-V block Sinus Arrhythmia Incomplete right bundle branch block Abnormal ECG When compared with ECG of 06-FEB-2022 02:11, Premature ventricular complexes is no longer Present Referred By: Sarah Boyd Electronically Signed By:ROSELYN PARKS MD
[2022-02-06 03:59] LABS: Venous Blood Gas Refer to POC result
[2022-02-06 04:01] LABS: VBG Base Excess 1.2 mmol/L; VBG HCO3 23 mmol/L (22-26); VBG pCO2 29 mmHg; VBG pO2 46 mmHg
[2022-02-06 04:19] LABS: Potassium 3.8 mmol/L (3.3-5.1)
[2022-02-06 04:30] LABS: Salicylate 35.9 mg/dL (15-30)
--- NOTE | 2022-02-06 05:25 | ECG_ITS ---
Test Reason : poison control Blood Pressure : / mmHG Vent. Rate : 089 BPM Atrial Rate : 089 BPM P-R Int : 130 ms QRS Dur : 120 ms QT Int : 412 ms P-R-T Axes : 062 067 048 degrees QTc Int : 501 ms Poor data quality, interpretation may be adversely affected Sinus rhythm with occasional Premature ventricular complexes Low voltage QRS Right bundle branch block Abnormal ECG When compared with ECG of 05-FEB-2022 17:37, Premature ventricular complexes are now Present Referred By: Sarah Boyd Electronically Signed By:ROSELYN PARKS MD
[2022-02-06] MEDS: Ampicillin Sodium/Sulbactam Na 3 GM in 0.9 % Sodium Chloride 100 ML IV ×2 (06:38→13:26)
--- NOTE | 2022-02-06 07:25 | ECG_ITS ---
Test Reason : poison control Blood Pressure : / mmHG Vent. Rate : 090 BPM Atrial Rate : 090 BPM P-R Int : 246 ms QRS Dur : 128 ms QT Int : 410 ms P-R-T Axes : 085 058 047 degrees QTc Int : 501 ms Sinus rhythm with 1st degree A-V block with occasional Premature ventricular complexes Right bundle branch block Abnormal ECG When compared with ECG of 06-FEB-2022 04:34, No significant changes seen Referred By: Sarah Boyd Electronically Signed By:ROSELYN PARKS MD
[2022-02-06] MEDS: levETIRAcetam 500 MG TABLET PO ×2 (08:54→22:35)
[2022-02-06] MEDS: Tamsulosin HCL 0.4 MG CAPSULE PO (08:54)
[2022-02-06 08:58] LABS: MANUAL DIFF FLAG NO
[2022-02-06 09:09] LABS: VBG Base Excess 1.8 mmol/L; VBG HCO3 23 mmol/L (22-26); VBG pCO2 30 mmHg; VBG pO2 102 mmHg
[2022-02-06 09:12] LABS: Venous Blood Gas Refer to POC result
[2022-02-06 09:18] LABS: Basophils Percent Auto 0.3 % (0-2); Eosinophils Percent Auto 0.4 % (0-4); Hematocrit 41.9 % (42.0-52.0); Imm Gran Abs Auto 0.06 X10*3/uL (0.00-0.03); Imm Gran Pct Auto 0.5 % (0.0-0.4); Lymphocytes Absolute Auto 0.6 X10*3/uL (1.2-4.9); Lymphocytes Percent Auto 5.7 % (20-40); Mean Corpuscular HGB Conc 35.8 g/dl (31.0-36.0); Mean Corpuscular Hemoglobin 31.5 pg (27.0-33.0); Mean Platelet Volume 10.2 fL (9.4-12.4); Monocytes Absolute Auto 0.8 X10*3/uL (0.1-1.2); Monocytes Percent Auto 7.2 % (2-11); Neutrophils Absolute Auto 9.5 x10*3/uL (2.0-8.3); Neutrophils Percent Auto 85.9 % (45-73); Platelet Count 160 X10*3/uL (160-400); Red Blood Count 4.76 X10*6/uL (4.60-5.80)
[2022-02-06 09:50] LABS: Alanine Aminotransferase 17 U/L (0-40); Albumin Level 3.5 g/dL (3.5-5.0); Alkaline Phosphatase 60 U/L (39-117); Anion Gap 16 (12-20); Aspartate Amino Transferase 24 U/L (5-37); Bilirubin Total 0.3 mg/dL (0.0-1.0); Blood Urea Nitrogen 18 mg/dL (9-16); Calcium 8.4 mg/dL (8.4-10.2); Carbon Dioxide 23 mmol/L (22-29); Chloride 100 mmol/L (96-108); Estimated Glomerular Filt Rate > 60; Glucose Random 80 mg/dL (60-115); Potassium 3.3 mmol/L (3.3-5.1); Sodium 136 mmol/L (135-145); Total Protein 6.3 g/dL (6.5-8.0)
[2022-02-06 09:54] LABS: Anion Gap 17 (12-20); Blood Urea Nitrogen 18 mg/dL (9-16); Calcium 8.4 mg/dL (8.4-10.2); Carbon Dioxide 22 mmol/L (22-29); Chloride 101 mmol/L (96-108); Creatinine Clr Calc Pharmacy 73.2; Estimated Glomerular Filt Rate > 60; Glucose Random 81 mg/dL (60-115); Potassium 3.4 mmol/L (3.3-5.1); Sodium 137 mmol/L (135-145)
[2022-02-06 09:59] LABS: Potassium 3.3 mmol/L (3.3-5.1); Salicylate 32.9 mg/dL (15-30)
--- NOTE | 2022-02-06 10:16 | MHC.CM.PN ---
IMM DELIVERED. CM MET WITH PT, LIVES IN SINGLE FAMILY HOME, RESIDES ALONE. NEPHEW AND HIS CHECK IN WITH HIM WEEKLY. USES A WALKER, CANE AND HAS MODIFICATIONS TO BR. + HCP, WILL REQUEST NEPHEW BRING IN COPY. PCP DR. DALAL AT [facility]. DP: PT IS OPEN TO HOME SERVICES IF RECOMMENDED. NE[facility]HEW WILL TRANSPORT
--- NOTE | 2022-02-06 12:00 | ECG_ITS ---
Test Reason : asprin toxicity Blood Pressure : / mmHG Vent. Rate : 082 BPM Atrial Rate : 082 BPM P-R Int : 152 ms QRS Dur : 132 ms QT Int : 428 ms P-R-T Axes : 065 072 052 degrees QTc Int : 500 ms Normal sinus rhythm Right bundle branch block Abnormal ECG When compared with ECG of 06-FEB-2022 06:33, Premature ventricular complexes are no longer Present [place] interval has decreased Referred By: Concepcion Jordan Electronically Signed By:ROSELYN PARKS MD
--- NOTE | 2022-02-06 13:08 | PM.EVENT ---
Event Note Date of Service: 02/06/22 Event Note: T/W attempted to meet with patient for psych consult, due to patient's report upon admission that he had attempted SI by swelling multiple meds. He had reported that he took 25 aspirin, 15 antidepressant, 20 melatonin. Patient confused, sitter in room. Unable to fully interview and assessed him at this time. Per chart review, patient had similar presentation 2 years ago, was seen by psych after SI attempt at that time as well. Spoke with nurse, she reports nephew told her today that he had found patient in confused state at his home. Nurse also reports he has had difficulties with simple tasks while here, question of demential onset? Vs depression? Recommendations: Continue with sitter for time being. As patient clears, please order a psych consult for capacity, dementia vs. depression. Please order CARE team eval to determine appropriate level of care, once patient medically stable. This has been shared with provider Dr. Concepcion Jordan Thank you.
[2022-02-06] MEDS: Potassium Chloride Packet 20 MEQ PACKET 40 MEQ PO (13:26)
[2022-02-06] MEDS: Potassium Chloride Packet 20 MEQ PACKET PO ×2 (15:14→18:23)
[2022-02-06 15:53] LABS: Venous Blood Gas Refer to POC result
[2022-02-06 15:54] LABS: VBG Base Excess 2.6 mmol/L; VBG HCO3 25 mmol/L (22-26); VBG pCO2 33 mmHg; VBG pH 7.48 (7.32-7.43); VBG pO2 62 mmHg
[2022-02-06 15:59] LABS: Potassium 3.7 mmol/L (3.3-5.1)
--- NOTE | 2022-02-06 16:42 | HO.PM.IMPN ---
Subjective Subjective Date of Service: 02/06/22 Interval History: suicide attempt, weakness, fall, pna Review of Systems Denies any new complaint of chest pain or shortness of breath or abdominal pain or fever or chills or nausea or vomiting Denies any cough Denies any weakness or numbness. Physical Exam Vital Signs: Vital Signs: Last Vital Signs Temp 98.6 F 02/06/22 15:29 Pulse 78 02/06/22 15:29 Resp 18 02/06/22 15:29 BP 108/59 L 02/06/22 15:29 Pulse Ox 97 02/06/22 15:29 O2 Del Method 02/06/22 15:29 O2 Flow Rate 95 02/06/22 00:15 BMI result Body Mass Index 19.5 Appearance: Alert.? Oriented X3.? anxious . cvs: rrr, [id number] . res: clear to auscultation ,no rhonchii or wheezing abd: no rebound or guarding ,nt, bs present. ext pulses present , no cyanosis . neuro: axo3 , nonfocal. Objective Data Active Medications Acetaminophen (Acetaminophen 325 Mg Tablet) 650 mg PO Q6H PRN PRN Reason: Pain, Mild (Pain Scale 1-3) Albuterol/Ipratropium (Albuterol/Iprat 2.5/0.5mg 3 Ml Ampul.Neb) 3 ml INHALE RQ4H PRN PRN Reason: Shortness of Breath/Wheezing Docusate Sodium (Docusate Sodium 100 Mg Capsule) 100 mg PO DAILY PRN PRN Reason: Constipation Heparin Sodium (Porcine) (Heparin Sodium,Porcine 5,000 Unit/Ml Vial) 5,000 unit SUBCUT Q12H [facility] Last Admin: 02/06/22 12:00 Dose: 5,000 unit Documented By: ALEXIS Ampicillin Sodium/Sulbactam (Sodium 3 gm/ Sodium Chloride) 100 mls @ 200 mls/hr IV Q8H [facility] Last Infusion: 02/06/22 15:09 Dose: 0 mls/hr Documented By: ALEXIS Sodium Bicarbonate 100 meq/ (Dextrose) 950 mls @ 150 mls/hr IV .Q6H20M [facility] Stop: 02/06/22 18:20 Last Admin: 02/06/22 13:50 Dose: 150 mls/hr Documented By: ALEXIS Sodium Bicarbonate 100 meq/ (Dextrose) 1,000 mls @ 150 mls/hr IV .Q6H40M [facility] Levetiracetam (Levetiracetam 500 Mg Tablet) 500 mg PO BID [facility] Last Admin: 02/06/22 08:54 Dose: 500 mg Documented By: ALEXIS Lorazepam (Lorazepam 0.5 Mg Tablet) 0.5 mg PO BEDTIME PRN PRN Reason: anxiety Magnesium Oxide (Magnesium Oxide 400 Mg Tablet) [facility] Ondansetron HCl (Ondansetron Hcl 4 Mg/2 Ml Vial) 4 mg IVPUSH Q8H PRN PRN Reason: Nausea and Vomiting Pharmacy Consult (Consult Rx Perform Med Rec) 1 each MISCELLANE ONCE PRN PRN Reason: Consult order Polyethylene Glycol (Polyethylene Glycol 3350 17 Gm Powd.Pack) 17 gm PO DAILY PRN PRN Reason: Constipation Tamsulosin HCl (Tamsulosin Hcl 0.4 Mg Capsule) 0.4 mg PO DAILY [facility] Last Admin: 02/06/22 08:54 Dose: 0.4 mg Documented By: ALEXIS Labs CBC & Chem 7: 02/06/22 08:44 02/06/22 15:43 Labs: Laboratory Results - last 24 hr 02/05/22 02/05/22 02/05/22 16:55 17:29 17:29 MCV 87.3 MCH 31.1 MCHC 35.6 RDW 12.5 Plt Count 153 L MPV 9.5 Immature Gran % (Auto) 0.6 H Neut % (Auto) 91.8 H Lymph % (Auto) 2.7 L [place] % (Auto) 4.8 Eos % (Auto) 0.0 Baso % (Auto) 0.1 Lymph # (Auto) 0.4 L [place] # (Auto) 0.7 Eos # (Auto) 0.0 Baso # (Auto) 0.0 Abs Immat Gran (auto) 0.08 H Absolute Neuts (auto) 12.5 H Absolute Nucleated RBC 0.000 Nucleated RBC % (auto) 0.0 Smear Tech's Comments VERIFIED PT 15.1 H INR 1.3 H VBG pH VBG pCO2 VBG pO2 VBG HCO3 VBG O2 Saturation VBG Base Excess Anion Gap 20 Estim Creat Clear Calc 59.8 Estimated GFR > 60 Random Glucose 119 H Lactic Acid Calcium 9.0 Magnesium 1.9 Total Bilirubin 0.3 AST 23 ALT 17 Alkaline Phosphatase 65 Total Creatine Kinase 394 H Troponin I High Sens B-Natriuretic Peptide Total Protein 6.9 Albumin 3.9 Urine Color Urine Appearance Urine pH Ur Specific [place] Urine Protein Urine Glucose (UA) Urine Ketones Urine Blood Urine Nitrite Ur Leukocyte Esterase Urine RBC Urine WBC Ur Squamous Epith Cells Urine Bacteria Hyaline Casts Salicylates Urine Opiates Screen Urine Fentanyl Screen Acetaminophen Ur Barbiturates Screen Ur Phencyclidine Scrn Ur Amphetamines Screen U Benzodiazepines Scrn Urine Cocaine Screen U Marijuana (THC) Screen COVID-19 (HEIDE) COVID-19 [facility] Com 02/05/22 02/05/22 02/05/22 17:29 17:29 19:29 MCV MCH MCHC RDW Plt Count MPV Immature Gran % (Auto) Neut % (Auto) Lymph % (Auto) [place] % (Auto) Eos % (Auto) Baso % (Auto) Lymph # (Auto) [place] # (Auto) Eos # (Auto) Baso # (Auto) Abs Immat Gran (auto) Absolute Neuts (auto) Absolute Nucleated RBC Nucleated RBC % (auto) Smear Tech's Comments PT INR VBG pH VBG pCO2 VBG pO2 VBG HCO3 VBG O2 Saturation VBG Base Excess Anion Gap Estim Creat Clear Calc Estimated GFR Random Glucose Lactic Acid 1.9 Calcium Magnesium Total Bilirubin AST ALT Alkaline Phosphatase Total Creatine Kinase Troponin I High Sens 11.9 B-Natriuretic Peptide 115 H Total Protein Albumin Urine Color Urine Appearance Urine pH Ur Specific [place] Urine Protein Urine Glucose (UA) Urine Ketones Urine Blood Urine Nitrite Ur Leukocyte Esterase Urine RBC Urine WBC Ur Squamous Epith Cells Urine Bacteria Hyaline Casts Salicylates Urine Opiates Screen Urine Fentanyl Screen Acetaminophen Ur Barbiturates Screen Ur Phencyclidine Scrn Ur Amphetamines Screen U Benzodiazepines Scrn Urine Cocaine Screen U Marijuana (THC) Screen COVID-19 (HEIDE) COVID-19 [facility] Com 02/05/22 02/05/22 02/05/22 19:29 19:29 20:15 MCV MCH MCHC RDW Plt Count MPV Immature Gran % (Auto) Neut % (Auto) Lymph % (Auto) [place] % (Auto) Eos % (Auto) Baso % (Auto) Lymph # (Auto) [place] # (Auto) Eos # (Auto) Baso # (Auto) Abs Immat Gran (auto) Absolute Neuts (auto) Absolute Nucleated RBC Nucleated RBC % (auto) Smear Tech's Comments PT INR VBG pH VBG pCO2 VBG pO2 VBG HCO3 VBG O2 Saturation VBG Base Excess Anion Gap Estim Creat Clear Calc Estimated GFR Random Glucose Lactic Acid Calcium Magnesium Total Bilirubin AST ALT Alkaline Phosphatase Total Creatine Kinase 297 H Troponin I High Sens B-Natriuretic Peptide Total Protein Albumin Urine Color Yellow Urine Appearance Clear Urine pH 5.5 Ur Specific [place] 1.015 Urine Protein Negative Urine Glucose (UA) Negative Urine Ketones 40 Urine Blood Small (1+) H Urine Nitrite Negative Ur Leukocyte Esterase Negative Urine RBC 6-10 H Urine WBC 0-5 Ur Squamous Epith Cells 0-2 Urine Bacteria None Seen Hyaline Casts 0-2 Salicylates 40.6 H* Urine Opiates Screen Not Detected Urine Fentanyl Screen Not Detected Acetaminophen < 1 Ur Barbiturates Screen Not Detected Ur Phencyclidine Scrn Not Detected Ur Amphetamines Screen Not Detected U Benzodiazepines Scrn Not Detected Urine Cocaine Screen Not Detected U Marijuana (THC) Screen Not Detected COVID-19 (HEIDE) COVID-19 Clin Com 02/05/22 02/05/22 02/06/22 20:15 22:44 00:00 MCV MCH MCHC RDW Plt Count MPV Immature Gran % (Auto) Neut % (Auto) Lymph % (Auto) [place] % (Auto) Eos % (Auto) Baso % (Auto) Lymph # (Auto) [place] # (Auto) Eos # (Auto) Baso # (Auto) Abs Immat Gran (auto) Absolute Neuts (auto) Absolute Nucleated RBC Nucleated RBC % (auto) Smear Tech's Comments PT INR VBG pH VBG pCO2 VBG pO2 VBG HCO3 VBG O2 Saturation VBG Base Excess Anion Gap 20 Estim Creat Clear Calc 66.3 Estimated GFR > 60 Random Glucose 92 Lactic Acid Calcium 8.5 Magnesium Total Bilirubin 0.2 AST 35 D ALT 21 Alkaline Phosphatase 61 Total Creatine Kinase Troponin I High Sens 15.3 B-Natriuretic Peptide Total Protein 6.9 Albumin 3.6 Urine Color Urine Appearance Urine pH Ur Specific [place] Urine Protein Urine Glucose (UA) Urine Ketones Urine Blood Urine Nitrite Ur Leukocyte Esterase Urine RBC Urine WBC Ur Squamous Epith Cells Urine Bacteria Hyaline Casts Salicylates 40.0 H* Urine Opiates Screen Urine Fentanyl Screen Acetaminophen Ur Barbiturates Screen Ur Phencyclidine Scrn Ur Amphetamines Screen U Benzodiazepines Scrn Urine Cocaine Screen U Marijuana (THC) Screen COVID-19 (HEIDE) Negative COVID-19 Clin Com See Note 02/06/22 02/06/22 02/06/22 00:02 00:54 00:54 MCV MCH MCHC RDW Plt Count MPV Immature Gran % (Auto) Neut % (Auto) Lymph % (Auto) [place] % (Auto) Eos % (Auto) Baso % (Auto) Lymph # (Auto) [place] # (Auto) Eos # (Auto) Baso # (Auto) Abs Immat Gran (auto) Absolute Neuts (auto) Absolute Nucleated RBC Nucleated RBC % (auto) Smear Tech's Comments PT INR VBG pH 7.45 H VBG pCO2 25 VBG pO2 54 VBG HCO3 18 L VBG O2 Saturation 85.0 VBG Base Excess -3.8 Anion Gap Estim Creat Clear Calc Estimated GFR Random Glucose Lactic Acid Calcium Magnesium Total Bilirubin AST ALT Alkaline Phosphatase Total Creatine Kinase Troponin I High Sens B-Natriuretic Peptide Total Protein Albumin Urine Color Yellow Urine Appearance Clear Urine pH 5.5 Ur Specific [place] 1.020 Urine Protein Negative Urine Glucose (UA) Negative Urine Ketones 40 Urine Blood Negative Urine Nitrite Negative Ur Leukocyte Esterase Negative Urine RBC Urine WBC Ur Squamous Epith Cells Urine Bacteria Hyaline Casts Salicylates Urine Opiates Screen Not Detected Urine Fentanyl Screen Not Detected Acetaminophen Ur Barbiturates Screen Not Detected Ur Phencyclidine Scrn Not Detected Ur Amphetamines Screen Not Detected U Benzodiazepines Scrn Not Detected Urine Cocaine Screen Not Detected U Marijuana (THC) Screen Not Detected COVID-19 (HEIDE) COVID-19 Clin Com 02/06/22 02/06/22 02/06/22 01:51 01:54 03:47 MCV MCH MCHC RDW Plt Count MPV Immature Gran % (Auto) Neut % (Auto) Lymph % (Auto) [place] % (Auto) Eos % (Auto) Baso % (Auto) Lymph # (Auto) [place] # (Auto) Eos # (Auto) Baso # (Auto) Abs Immat Gran (auto) Absolute Neuts (auto) Absolute Nucleated RBC Nucleated RBC % (auto) Smear Tech's Comments PT INR VBG pH 7.53 H VBG pCO2 21 VBG pO2 112 VBG HCO3 17 L VBG O2 Saturation 99.0 VBG Base Excess -2.6 Anion Gap Estim Creat Clear Calc Estimated GFR Random Glucose Lactic Acid Calcium Magnesium Total Bilirubin AST ALT Alkaline Phosphatase Total Creatine Kinase Troponin I High Sens B-Natriuretic Peptide Total Protein Albumin Urine Color Urine Appearance Urine pH Ur Specific [place] Urine Protein Urine Glucose (UA) Urine Ketones Urine Blood Urine Nitrite Ur Leukocyte Esterase Urine RBC Urine WBC Ur Squamous Epith Cells Urine Bacteria Hyaline Casts Salicylates 37.1 H* 35.9 H* Urine Opiates Screen Urine Fentanyl Screen Acetaminophen Ur Barbiturates Screen Ur Phencyclidine Scrn Ur Amphetamines Screen U Benzodiazepines Scrn Urine Cocaine Screen U Marijuana (THC) Screen COVID-19 (HEIDE) COVID-19 Clin Com 02/06/22 02/06/22 02/06/22 03:51 08:44 08:44 MCV 88.0 MCH 31.5 MCHC 35.8 RDW 13.0 Plt Count 160 MPV 10.2 Immature Gran % (Auto) 0.5 H Neut % (Auto) 85.9 H Lymph % (Auto) 5.7 L [place] % (Auto) 7.2 Eos % (Auto) 0.4 Baso % (Auto) 0.3 Lymph # (Auto) 0.6 L [place] # (Auto) 0.8 Eos # (Auto) 0.0 Baso # (Auto) 0.0 Abs Immat Gran (auto) 0.06 H Absolute Neuts (auto) 9.5 H Absolute Nucleated RBC 0.000 Nucleated RBC % (auto) 0.0 Smear Tech's Comments PT INR VBG pH 7.50 H VBG pCO2 29 VBG pO2 46 VBG HCO3 23 VBG O2 Saturation 76.0 VBG Base Excess 1.2 Anion Gap 17 Estim Creat Clear Calc 73.2 Estimated GFR > 60 Random Glucose 81 Lactic Acid Calcium 8.4 Magnesium Total Bilirubin AST ALT Alkaline Phosphatase Total Creatine Kinase Troponin I High Sens B-Natriuretic Peptide Total Protein Albumin Urine Color Urine Appearance Urine pH Ur Specific [place] Urine Protein Urine Glucose (UA) Urine Ketones Urine Blood Urine Nitrite Ur Leukocyte Esterase Urine RBC Urine WBC Ur Squamous Epith Cells Urine Bacteria Hyaline Casts Salicylates Urine Opiates Screen Urine Fentanyl Screen Acetaminophen Ur Barbiturates Screen Ur Phencyclidine Scrn Ur Amphetamines Screen U Benzodiazepines Scrn Urine Cocaine Screen U Marijuana (THC) Screen COVID-19 (HEIDE) COVID-19 Clin Com 02/06/22 02/06/22 02/06/22 08:44 08:44 08:44 MCV MCH MCHC RDW Plt Count MPV Immature Gran % (Auto) Neut % (Auto) Lymph % (Auto) [place] % (Auto) Eos % (Auto) Baso % (Auto) Lymph # (Auto) [place] # (Auto) Eos # (Auto) Baso # (Auto) Abs Immat Gran (auto) Absolute Neuts (auto) Absolute Nucleated RBC Nucleated RBC % (auto) Smear Tech's Comments PT INR VBG pH VBG pCO2 VBG pO2 VBG HCO3 VBG O2 Saturation VBG Base Excess Anion Gap 16 Estim Creat Clear Calc 70.0 Estimated GFR > 60 Random Glucose 80 Lactic Acid Calcium 8.4 Magnesium 2.0 Total Bilirubin 0.3 AST 24 ALT 17 Alkaline Phosphatase 60 Total Creatine Kinase Troponin I High Sens B-Natriuretic Peptide Total Protein 6.3 L Albumin 3.5 Urine Color Urine Appearance Urine pH Ur Specific [place] Urine Protein Urine Glucose (UA) Urine Ketones Urine Blood Urine Nitrite Ur Leukocyte Esterase Urine RBC Urine WBC Ur Squamous Epith Cells Urine Bacteria Hyaline Casts Salicylates Cancelled 32.9 H* Urine Opiates Screen Urine Fentanyl Screen Acetaminophen Ur Barbiturates Screen Ur Phencyclidine Scrn Ur Amphetamines Screen U Benzodiazepines Scrn Urine Cocaine Screen U Marijuana (THC) Screen COVID-19 (HEIDE) COVID-19 Clin Com 02/06/22 02/06/22 09:02 15:47 MCV MCH MCHC RDW Plt Count MPV Immature Gran % (Auto) Neut % (Auto) Lymph % (Auto) [place] % (Auto) Eos % (Auto) Baso % (Auto) Lymph # (Auto) [place] # (Auto) Eos # (Auto) Baso # (Auto) Abs Immat Gran (auto) Absolute Neuts (auto) Absolute Nucleated RBC Nucleated RBC % (auto) Smear Tech's Comments PT INR VBG pH 7.50 H 7.48 H VBG pCO2 30 33 VBG pO2 102 62 VBG HCO3 23 25 VBG O2 Saturation 99.0 90.0 VBG Base Excess 1.8 2.6 Anion Gap Estim Creat Clear Calc Estimated GFR Random Glucose Lactic Acid Calcium Magnesium Total Bilirubin AST ALT Alkaline Phosphatase Total Creatine Kinase Troponin I High Sens B-Natriuretic Peptide Total Protein Albumin Urine Color Urine Appearance Urine pH Ur Specific [place] Urine Protein Urine Glucose (UA) Urine Ketones Urine Blood Urine Nitrite Ur Leukocyte Esterase Urine RBC Urine WBC Ur Squamous Epith Cells Urine Bacteria Hyaline Casts Salicylates Urine Opiates Screen Urine Fentanyl Screen Acetaminophen Ur Barbiturates Screen Ur Phencyclidine Scrn Ur Amphetamines Screen U Benzodiazepines Scrn Urine Cocaine Screen U Marijuana (THC) Screen COVID-19 ([facility]IDE) COVID-19 Clin Com Assessment and Plan (1) Suicide attempt: Status: Acute (2) Aspiration pneumonia: Status: Acute (3) Intentional drug overdose: Status: Acute Plan 82-year-old male with past medical history of COPD, hypertension, hyperlipidemia, anxiety and depression, peripheral vascular disease presents to the hospital after attempting to kill himself by intentionally overdosing on aspirin, antidepressant and melatonin # suicidal attempt by intentional drug overdose - reports taking 25 pills of aspirin, 15 pills on antidepressants in 20 pills of 10 mg melatonin - patient hemodynamically stable, no QTC prolongation, has salicylate level of over 40 -asa levels :32 , potasium 3.7, qtc 500 slighty better than intail ekg , mag 2.0 discussed with poison control in detail length- next the salsalate level should be around evening 7 as well as BMP and please get an EKG at that time and discussed with poison control for further management. - psych consulted # aspiration pneumonia - has evidence of aspiration pneumonia, he denies having any vomiting but reports that he has difficulty swallowing - will cover him with antibiotics for aspiration pneumonia - keep NPO - consult speech # fall - likely secondary to lethargy in the setting of overdosing on melatonin and antidepressant although he does not remember the name of the antidepressant - physical therapy prior to discharge # hypertension - stable - will continue antihypertensive # hyperlipidemia - continue statin # peripheral vascular - hold aspirin # COPD - have baseline - DuoNeb p.r.n. DVT prophylaxis:? Heparin subQ Ongoing hospitalization need: aspirin toxicity/suicidal attempt by intentional drug overdose- need electrolytes and salicylate level monitoring as well as telemetry monitoring, in addition patient had suicidal attempt once medically clear then need to be seen by Let[facility] for further disposition of the patient. Patient has sitter due to suicidal attempt. Quality Stroke Does the patient have a stroke diagnosis?: No VTE Prior VTE?: No VTE Risk Level:: Medical - moderate - high VTE Device Contraindication: Treatment Not Indicated VTE Drug Contraindication: N/A - Med Ordered
--- NOTE | 2022-02-06 17:37 | MHC.SL.SWA ---
Addendum entered and electronically signed by Cassandra Tian MA, CCC-TRESTLE BUILDER 02/06/22 18:40: D.S. Original Note: Dysphasia Diet Status: Upgrade from NPO Liquid Consistency and Strategies for Safe Swallow: Liquid Intake Recommendation: Thin Liquid Intake Strategies: Small Sips Solid Food Consistency: Dietary Recommendations: Chopped/Advanced (NDD3) Additional Modifications to Solid Foods: Moisten foods with sauce/gravy Oral Medication Intake: Crushed with Puree Please contact the pharmacy regarding appropriate crushable or liquid drug formulations that are available whenever modified delivery is recommended. Compensatory Strategies and Precautions to be Taken for Safe Swallow: Sitting Upright (90 deg) Liquids from Cup Liquids from Straw Liquids from Spoon Small Bites and Sips Alternate Liquids/Solids Rate of Ingestion Change Avoid Specific Foods Supervision While Eating and Drinking for Safe Swallow: Total Assistance (1:1) Foods to Avoid: Avoid hard, sticky, and tough to chew foods Swallowing Recommended Treatments: Compens. Strategy Educat. Recommendation for Speech: Outpatient Speech Therapy Inpatient Speech Therapy Modified Barium Swallow Study - Outpatient Comment: Recommend UPGRADE to CHOPPED/ADVANCED solids and THIN liquids. Pills crushed in puree when possible. Pt requires 1-1 assistance feeding d/t weakness. Cue to alternate between liquids and solids. Update sent to MD, RN, and RD via [employer]. If pt continues to report globus sensation and difficulty swallowing, pt may benefit from MBSS. Fisheries Manager Clinican/Clinical Fellow: Yes: Melissa Aponte M.A., CF-[employer]LE BU[employer]DER Supervisory Statement: I have reviewed and agree with the student/clinical fellow's documentation: Speech Language Pathologist:
[2022-02-06] MEDS: Magnesium Oxide 400 MG TABLET PO (18:23)
--- NOTE | 2022-02-06 18:42 | PC.NURSE ---
Poison control called today to see if EKG Q2H was necessary per question of Dr. Poison control asked for levels of salicylates which was 32.9 and trending down. They stated EKG could be done Q6H. VBG and K+ are to be done Q2H until there are 2 salicylates below 30. nurse to contact poison control for update on labs and further recommendations.
[2022-02-06 19:45] LABS: Anion Gap 13 (12-20); Blood Urea Nitrogen 20 mg/dL (9-16); Calcium 7.8 mg/dL (8.4-10.2); Carbon Dioxide 26 mmol/L (22-29); Chloride 101 mmol/L (96-108); Creatinine Clr Calc Pharmacy 71.1; Estimated Glomerular Filt Rate > 60; Glucose Random 147 mg/dL (60-115); Potassium 3.6 mmol/L (3.3-5.1); Salicylate 25.6 mg/dL (15-30); Sodium 136 mmol/L (135-145)
[2022-02-06] MEDS: Sodium Bicarbonate 8.4% 100 MEQ in Dextrose 5 % 900 ML 150 MEQ IV (22:33)
[2022-02-06] MEDS: LORazepam 0.5 MG TABLET PO (22:35)
[2022-02-06] MEDS: vancomycin HCL 1,500 MG in 0.9 % Sodium Chloride 500 ML 333.33 MG IV (23:20)
[2022-02-07 02:04] LABS: Hematocrit 35.9 % (42.0-52.0); Hemoglobin 12.7 g/dl (14.0-18.0); Mean Corpuscular HGB Conc 35.4 g/dl (31.0-36.0); Mean Corpuscular Hemoglobin 31.1 pg (27.0-33.0); Platelet Count 139 X10*3/uL (160-400); Red Blood Count 4.08 X10*6/uL (4.60-5.80); Red Cell Distribution Width 13.2 % (11.0-16.0); White Blood Count 10.4 X10*3/uL (4.8-10.8)
[2022-02-07 02:10] LABS: VBG Base Excess 5.9 mmol/L; VBG HCO3 28 mmol/L (22-26); VBG pCO2 33 mmHg; VBG pH 7.53 (7.32-7.43); VBG pO2 70 mmHg
[2022-02-07 02:15] LABS: Venous Blood Gas Refer to POC result
[2022-02-07 02:24] LABS: Salicylate 19.3 mg/dL (15-30)
--- NOTE | 2022-02-07 02:34 | PC.NURSE ---
Poison control followed up with three times during shift and EKG done. Most recent result for salicylate was 19.3. Advised to let overnight hospitalist know that sodium bicarbonate can be discontinued. Poison control will be contacted again after lab draws for potassium and salicylate at 6am.
[2022-02-07 03:51] VITALS: BP 115/63; PULSE 82; RESP 20; TEMP 37.1; O2SAT 92
[2022-02-07 07:30] LABS: Salicylate 15.3 mg/dL (15-30)
[2022-02-07 08:00] VITALS: BP 117/53; PULSE 79; RESP 12; TEMP 36.8; O2SAT 91
[2022-02-07] MEDS: Tamsulosin HCL 0.4 MG CAPSULE PO (09:53)
[2022-02-07] MEDS: Magnesium Oxide 400 MG TABLET PO ×2 (09:53→17:19)
[2022-02-07] MEDS: levETIRAcetam 500 MG TABLET PO ×2 (09:53→20:35)
[2022-02-07] MEDS: Heparin Sodium,Porcine 5,000 UNIT/ML VIAL 5000 UNIT SUBCUT ×2 (09:53→23:31)
--- NOTE | 2022-02-07 10:24 | ECG_ITS ---
Test Reason : QT interval Blood Pressure : / mmHG Vent. Rate : 087 BPM Atrial Rate : 087 BPM P-R Int : 114 ms QRS Dur : 114 ms QT Int : 400 ms P-R-T Axes : 041 053 050 degrees QTc Int : 481 ms Normal sinus rhythm Incomplete right bundle branch block Abnormal ECG No significant changes seen Referred By: Sarah Boyd Electronically Signed By:ROSELYN PARKS MD
[2022-02-07 10:32] LABS: Creatinine Clr Calc Pharmacy 74.3; Estimated Glomerular Filt Rate > 60
[2022-02-07 12:00] VITALS: BP 113/63; PULSE 81; RESP 16; TEMP 36.9; O2SAT 90
--- NOTE | 2022-02-07 12:27 | HO.PM.IMPN ---
Subjective Subjective Date of Service: 02/07/22 Interval History: Follow up suicide attempt, weakness, fall, pna Review of Systems Denies any new complaint of chest pain or shortness of breath or abdominal pain or fever or chills or nausea or vomiting Denies any cough Denies any weakness or numbness. Physical Exam Vital Signs: Vital Signs: Last Vital Signs Temp 98.5 F 02/07/22 12:00 Pulse 81 02/07/22 12:00 Resp 16 02/07/22 12:00 BP 113/63 02/07/22 12:00 Pulse Ox 90 L 02/07/22 12:00 O2 Del Method 02/07/22 12:00 O2 Flow Rate 95 02/06/22 00:15 BMI result Body Mass Index 19.5 Appearing in no acute distress lung sounds are clear to auscultation heart regular rate rhythm, clear S1, S2 positive bowel sounds, abdomen is soft, nontender neuro patient is alert x3, no focal deficits Objective Data Active Medications Acetaminophen (Acetaminophen 325 Mg Tablet) 650 mg PO Q6H PRN PRN Reason: Pain, Mild (Pain Scale 1-3) Albuterol/Ipratropium (Albuterol/Iprat 2.5/0.5mg 3 Ml Ampul.Neb) 3 ml INHALE RQ4H PRN PRN Reason: Shortness of Breath/Wheezing Docusate Sodium (Docusate Sodium 100 Mg Capsule) 100 mg PO DAILY PRN PRN Reason: Constipation Heparin Sodium (Porcine) (Heparin Sodium,Porcine 5,000 Unit/Ml Vial) 5,000 unit SUBCUT Q12H [facility] Last Admin: 02/07/22 09:53 Dose: 5,000 unit Documented By: SHANIA Vancomycin HCl 1,250 mg/ (Sodium Chloride) 250 mls @ 166.667 mls/hr IV Q24H [facility] Levetiracetam (Levetiracetam 500 Mg Tablet) 500 mg PO BID [facility] Last Admin: 02/07/22 09:53 Dose: 500 mg Documented By: SHANIA Lorazepam (Lorazepam 0.5 Mg Tablet) 0.5 mg PO BEDTIME PRN PRN Reason: anxiety Last Admin: 02/06/22 22:35 Dose: 0.5 mg Documented By: PAPITO Magnesium Oxide ([facility]esium [facility]ide 400 Mg Tablet) [facility] Last Admin: 02/07/22 09:53 Dose: 400 mg Documented By: SHANIA Ondansetron HCl (Ondansetron Hcl 4 Mg/2 Ml Vial) 4 mg IVPUSH Q8H PRN PRN Reason: Nausea and Vomiting Pharmacy Consult (Consult Rx Perform Med Rec) 1 each MISCELLANE ONCE PRN PRN Reason: Consult order Pharmacy Consult (Consult Rx Vancomycin Dosing) 1 each MISCELLANE DAILY PRN PRN Reason: Consult order Polyethylene Glycol (Polyethylene Glycol 3350 17 Gm Powd.Pack) 17 gm PO DAILY PRN PRN Reason: Constipation Tamsulosin HCl (Tamsulosin Hcl 0.4 Mg Capsule) 0.4 mg PO DAILY [facility] Last Admin: 02/07/22 09:53 Dose: 0.4 mg Documented By: SHANIA Labs CBC & Chem 7: 02/07/22 01:57 02/07/22 09:59 Labs: Laboratory Results - last 24 hr 02/06/22 02/06/22 02/07/22 15:47 19:09 01:57 MCV 88.0 MCH 31.1 MCHC 35.4 RDW 13.2 Plt Count 139 L MPV 10.0 Absolute Nucleated RBC 0.000 Nucleated RBC % (auto) 0.0 VBG pH 7.48 H VBG pCO2 33 VBG pO2 62 VBG HCO3 25 VBG O2 Saturation 90.0 VBG Base Excess 2.6 Anion Gap 13 Estim Creat Clear Calc 71.1 Estimated GFR > 60 Random Glucose 147 H Calcium 7.8 L D Salicylates 25.6 02/07/22 02/07/22 02/07/22 01:57 02:02 06:11 MCV MCH MCHC RDW Plt Count MPV Absolute Nucleated RBC Nucleated RBC % (auto) VBG pH 7.53 H VBG pCO2 33 VBG pO2 70 VBG HCO3 28 H VBG O2 Saturation 94.0 VBG Base Excess 5.9 Anion Gap Estim Creat Clear Calc Estimated GFR Random Glucose Calcium Salicylates 19.3 15.3 02/07/22 09:59 MCV MCH MCHC RDW Plt Count MPV Absolute Nucleated RBC Nucleated RBC % (auto) VBG pH VBG pCO2 VBG pO2 VBG HCO3 VBG O2 Saturation VBG Base Excess Anion Gap Estim Creat Clear Calc 74.3 Estimated GFR > 60 Random Glucose Calcium Salicylates Microbiology Microbiology Results: Microbiology 02/05/22 20:38 Blood Culture - Preliminary Blood - Venous Prelim: GPC Gram Stain only 02/05/22 20:37 Blood Culture - Preliminary Blood - Venous No growth after 24 hours. Assessment and Plan (1) Suicide attempt: Status: Acute (2) Aspiration pneumonia: Status: Acute (3) Intentional drug overdose: Status: Acute Plan 82-year-old male with past medical history of COPD, hypertension, hyperlipidemia, anxiety and depression, peripheral vascular disease presents to the hospital after attempting to kill himself by intentionally overdosing on aspirin, antidepressant and melatonin suicidal attempt by intentional drug overdose reports taking 25 pills of aspirin, 15 pills on antidepressants in 20 pills of 10 mg melatonin patient hemodynamically stable, no QTC prolongation, has salicylate level of over 40 discussed with poison control in detail length- next the salsalate level should be around evening 7 as well as BMP and please get an EKG at that time and discussed with poison control for further management. psych consulted recommend care team evaluation once medically cleared as well as a follow-up psych evaluation for capacity sitter present Stable electrolytes ,Tylenol level 15.3 aspiration pneumonia has evidence of aspiration pneumonia, he denies having any vomiting but reports that he has difficulty swallowing will cover him with antibiotics for aspiration pneumonia keep NPO consult speech recommend chopped, Rider diet with thin liquids fall ikely secondary to lethargy in the setting of overdosing on melatonin and antidepressant although he does not remember the name of the antidepressant physical therapy prior to discharge hypertension stable will continue antihypertensive hyperlipidemia continue statin peripheral vascular hold aspirin COPD have baseline DuoNeb p.r.n. DVT prophylaxis:? Heparin subQ Attending Dr. Mclean Ongoing hospitalization need: aspirin toxicity/suicidal attempt by intentional drug overdose- need electrolytes and salicylate level monitoring as well as telemetry monitoring, in addition patient had suicidal attempt once medically clear then need to be seen by guillermo medina for further disposition of the patient. Patient has sitter due to suicidal attempt. Quality Stroke Does the patient have a stroke diagnosis?: No VTE Prior VTE?: No VTE Risk Level:: Medical - moderate - high VTE Device Contraindication: Treatment Not Indicated VTE Drug Contraindication: N/A - Med Ordered
[2022-02-07 15:38] VITALS: BP 113/34; PULSE 78; RESP 18; TEMP 37.2; O2SAT 98
[2022-02-07 19:50] VITALS: BP 123/76; PULSE 64; RESP 18; TEMP 37.1; O2SAT 98
[2022-02-07] MEDS: LORazepam 0.5 MG TABLET PO (20:34)
[2022-02-07] MEDS: vancomycin HCL 1,250 MG in 0.9 % Sodium Chloride 250 ML 166.67 MG IV (23:31)
[2022-02-07 23:37] VITALS: BP 151/70; PULSE 101; RESP 15; O2SAT 89
[2022-02-07] MEDS: Acetaminophen 325 MG TABLET 650 MG PO (23:56)
[2022-02-08] MEDS: diphenhydrAMINE HCL 50 MG/ML VIAL 25 MG IVPUSH (01:17)
[2022-02-08 04:00] VITALS: BP 111/46; PULSE 82; RESP 20; TEMP 37; O2SAT 92
--- NOTE | 2022-02-08 06:53 | PC.NURSE ---
Pt stated he wished to and also has a plan to go home and try to OD on pills. He has a camera and a 1:1 sitter. I let the hospitalist know about his plan to kill himself.
[2022-02-08 07:46] LABS: Anion Gap 12 (12-20); Blood Urea Nitrogen 19 mg/dL (9-16); Calcium 7.4 mg/dL (8.4-10.2); Carbon Dioxide 27 mmol/L (22-29); Chloride 102 mmol/L (96-108); Creatinine Clr Calc Pharmacy 75.4; Estimated Glomerular Filt Rate > 60; Glucose Random 87 mg/dL (60-115); Potassium 3.4 mmol/L (3.3-5.1); Sodium 138 mmol/L (135-145)
[2022-02-08] MEDS: Tamsulosin HCL 0.4 MG CAPSULE PO (07:46)
[2022-02-08] MEDS: levETIRAcetam 500 MG TABLET PO ×2 (07:46→20:47)
[2022-02-08] MEDS: Magnesium Oxide 400 MG TABLET PO ×2 (07:46→16:40)
[2022-02-08 08:00] VITALS: BP 115/52; PULSE 80; RESP 18; TEMP 37.2; O2SAT 90
[2022-02-08] MEDS: Heparin Sodium,Porcine 5,000 UNIT/ML VIAL 5000 UNIT SUBCUT ×2 (11:10→22:58)
[2022-02-08 11:43] VITALS: BP 95/60; PULSE 72; RESP 18; TEMP 36.9; O2SAT 90
--- NOTE | 2022-02-08 14:37 | P.PNIM_ITS ---
Subjective Subjective Date of Service: 02/08/22 Interval History: seen and examined this morning follow up for pneumonia, intentional drug overdose denies sob this am feeling depressed Review of Systems Review of Systems: Yes all other systems are reviewed and are negative Constitutional Constitutional: Denies chills and Denies fever(s) Cardiovascular Cardiovascular: Denies chest pain, Denies palpitations and Denies dyspnea Respiratory Respiratory: Denies cough and Denies dyspnea Gastrointestinal Gastrointestinal: Denies abdominal pain, Denies nausea and Denies vomiting Endocrine Endocrine: Denies palpitations Physical Exam Vital Signs: Vital Signs: Last Vital Signs Temp 98.4 F 02/08/22 11:43 Pulse 72 02/08/22 11:43 Resp 18 02/08/22 11:43 BP 95/60 02/08/22 11:43 Pulse Ox 90 L 02/08/22 11:43 O2 Del Method 02/08/22 11:43 O2 Flow Rate 95 02/06/22 00:15 BMI result Body Mass Index 19.5 Const: General: cooperative, no acute distress, alert and awake Nutritional Appearance: average body habitus Orientation/consciousness: patient oriented x3 Resp: Effort & Inspection: normal respiratory effort and able to speak in complete sentences Cardio: Rate: regular rate Heart sounds: S1 normal heart sound present and S2 normal heart sound present GI: Inspection: No distended Palpation (GI): Soft to palpation Neuro: General: patient oriented x3 Extrem: General: Yes no pedal edema Objective Data Active Medications Acetaminophen (Acetaminophen 325 Mg Tablet) 650 mg PO Q6H PRN PRN Reason: Pain, Mild (Pain Scale 1-3) Last Admin: 02/07/22 23:56 Dose: 650 mg Documented By: AGUSTINA Albuterol/Ipratropium (Albuterol/Iprat 2.5/0.5mg 3 Ml Ampul.Neb) 3 ml INHALE RQ4H PRN PRN Reason: Shortness of Breath/Wheezing Docusate Sodium (Docusate Sodium 100 Mg Capsule) 100 mg PO DAILY PRN PRN Reason: Constipation Heparin Sodium (Porcine) (Heparin Sodium,Porcine 5,000 Unit/Ml Vial) 5,000 unit SUBCUT Q12H [facility] Last Admin: 02/08/22 11:10 Dose: 5,000 unit Documented By: BUCKY Vancomycin HCl 1,250 mg/ (Sodium Chloride) 250 mls @ 166.667 mls/hr IV Q24H [facility] Last Infusion: 02/08/22 01:20 Dose: 0 mls/hr Documented By: AGUSTINA Levetiracetam (Levetiracetam 500 Mg Tablet) 500 mg PO BID [facility] Last Admin: 02/08/22 07:46 Dose: 500 mg Documented By: BUCKY Lorazepam (Lorazepam 0.5 Mg Tablet) 0.5 mg PO BEDTIME PRN PRN Reason: anxiety Last Admin: 02/07/22 20:34 Dose: 0.5 mg Documented By: AGUSTINA Magnesium Oxide (Magnesium Oxide 400 Mg Tablet) 400 mg PO BIDPC [facility] Last Admin: 02/08/22 07:46 Dose: 400 mg Documented By: BUCKY Ondansetron HCl (Ondansetron Hcl 4 Mg/2 Ml Vial) 4 mg IVPUSH Q8H PRN PRN Reason: Nausea and Vomiting Pharmacy Consult (Consult Rx Perform Med Rec) 1 each MISCELLANE ONCE PRN PRN Reason: Consult order Pharmacy Consult (Consult Rx Vancomycin Dosing) 1 each MISCELLANE DAILY PRN PRN Reason: Consult order Polyethylene Glycol (Polyethylene Glycol 3350 17 Gm Powd.Pack) 17 gm PO DAILY PRN PRN Reason: Constipation Tamsulosin HCl (Tamsulosin Hcl 0.4 Mg Capsule) 0.4 mg PO DAILY [facility] Last Admin: 02/08/22 07:46 Dose: 0.4 mg Documented By: BUCKY Labs CBC & Chem 7: 02/07/22 01:57 02/08/22 05:34 Labs: Laboratory Results - last 24 hr 02/08/22 02/08/22 05:34 05:34 Anion Gap 12 Estim Creat Clear Calc Cancelled 75.4 Estimated GFR Cancelled > 60 Random Glucose 87 Calcium 7.4 L Microbiology Microbiology Results: Microbiology 02/05/22 20:38 Blood Culture - Final Blood - Venous Coag negative Staphylococcus 02/06/22 22:50 Blood Culture - Preliminary Blood - Venous No growth after 24 hours. 02/06/22 22:50 Blood Culture - Preliminary Blood - Venous No growth after 24 hours. 02/05/22 20:37 Blood Culture - Preliminary Blood - Venous No growth after 48 hours. Assessment and Plan (1) Intentional drug overdose: Status: Acute (2) Aspiration pneumonia: Status: Acute Plan 82-year-old male with past medical history of COPD, hypertension, hyperlipidemia, anxiety and depression, peripheral vascular disease presents to the hospital after attempting to kill himself by intentionally overdosing on aspirin, antidepressant and melatonin suicidal attempt by intentional drug overdose reports taking 25 pills of aspirin, 15 pills on antidepressants in 20 pills of 10 mg melatonin patient hemodynamically stable, no QTC prolongation psych consulted recommend care team evaluation once medically cleared as well as a follow-up psych evaluation for capacity sitter present Stable electrolytes ,Tylenol level 15.3 aspiration pneumonia has evidence of aspiration pneumonia on imaging will cover him with antibiotics for aspiration pneumonia seen by speech, recommend NDD3 with thin liquids aspiration precautions fall likely secondary to lethargy in the setting of overdosing on melatonin and antidepressant seen by PT - rec STR blood cultures growing coag negative staph likely contaminant, repeat cultures negative will d/c vanco seizures continue keppra hyperlipidemia continue statin peripheral vascular disease hold aspirin COPD DuoNeb p.r.n. DVT prophylaxis:? Heparin subQ Attending Dr. Mclean dispo - seen by PT - rec STR. will likely need inpatient psych. HERMILO eval when medically clear Ongoing hospitalization need: aspirin toxicity/suicidal attempt by intentional drug overdose Patient has sitter due to suicidal attempt. Quality Stroke Does the patient have a stroke diagnosis?: No VTE Prior VTE?: No VTE Risk Level:: Medical - moderate - high VTE Device Contraindication: Treatment Not Indicated VTE Drug Contraindication: N/A - Med Ordered
[2022-02-08 15:13] VITALS: BP 121/60; PULSE 91; RESP 18; TEMP 37.2; O2SAT 91
--- NOTE | 2022-02-08 15:17 | MHC.SL.SWA ---
Speech Pathologist Impression: Risk of Aspiration Due to: Dysphasia Diet Status: Patient on least restrictive diet for his needs, tolerating well. Recommend continue on Chopped/Advanced (NDD3) with THIN liquids, pills whole with liquid or puree. Liquid Consistency and Strategies for Safe Swallow: Liquid Intake Recommendation: Thin Liquid Intake Strategies: Small Sips Solid Food Consistency: Dietary Recommendations: Chopped/Advanced (NDD3) Additional Modifications to Solid Foods: Moisten foods with sauce/gravy Oral Medication Intake: Whole with Puree Please contact the pharmacy regarding appropriate crushable or liquid drug formulations that are available whenever modified delivery is recommended. Compensatory Strategies and Precautions to be Taken for Safe Swallow: Sitting Upright (90 deg) Tilt Head Left Liquids from Cup Small Bites and Sips Supervision While Eating and Drinking for Safe Swallow: Total Assistance (1:1) Foods to Avoid: Avoid hard, sticky, and tough to chew foods Swallowing Recommended Treatments: Compens. Strategy Educat. Recommendation for Speech: Outpatient Speech Therapy Inpatient Speech Therapy Modified Barium Swallow Study - Outpatient Comment: Patient seen at lunch for toleration of diet. Patient was sitting in chair, had just received tray of two different soups, juices and tea, and was chatting with aid in room. Patient was observed taking several spoonfuls of clam chowder, and commented on how good it was. Patient additionally observed taking sips of liquid with no difficulty, no clinical signs of aspiration. Patient on least restrictive diet for his needs, tolerating well. Recommend continue on Chopped/Advanced (NDD3) with THIN liquids, pills whole with liquid or puree. MANAGER FINE to f/u 1X Frequency/Duration: Date Range for Service Req: Timeline to reassess: Raise Drill Operator Clinican/Clinical Fellow: No Supervisory Statement: I have reviewed and agree with the student/clinical fellow's documentation: N/A Speech Language Pathologist: Poonam Mccracken M.A., CCC-MANAGER FINE
[2022-02-08] MEDS: Amoxicillin/Potassium Clav 875 MG TABLET PO (16:15)
[2022-02-08 18:54] VITALS: BP 104/59; PULSE 88; RESP 18; TEMP 37.6; O2SAT 91
[2022-02-08 21:39] LABS: Vancomycin Random 5.8 mcg/mL (15-20)
[2022-02-08 23:07] VITALS: BP 133/64; PULSE 87; RESP 18; TEMP 37.5; O2SAT 90
[2022-02-08] MEDS: LORazepam 0.5 MG TABLET PO (23:46)
[2022-02-09] MEDS: Amoxicillin/Potassium Clav 875 MG TABLET PO ×2 (03:10→17:24)
[2022-02-09 04:00] VITALS: BP 157/86; PULSE 85; RESP 18; TEMP 37.1; O2SAT 91
[2022-02-09 07:08] LABS: Creatinine Clr Calc Pharmacy 81.7; Estimated Glomerular Filt Rate > 60
[2022-02-09 07:49] VITALS: BP 125/70; PULSE 81; RESP 18; TEMP 37.2; O2SAT 92
[2022-02-09] MEDS: Magnesium Oxide 400 MG TABLET PO ×2 (07:53→17:24)
[2022-02-09] MEDS: levETIRAcetam 500 MG TABLET PO ×2 (07:53→23:06)
[2022-02-09] MEDS: Tamsulosin HCL 0.4 MG CAPSULE PO (07:53)
[2022-02-09] MEDS: Heparin Sodium,Porcine 5,000 UNIT/ML VIAL 5000 UNIT SUBCUT ×2 (11:00→23:06)
--- NOTE | 2022-02-09 11:56 | HO.PM.IMPN ---
Subjective Subjective Date of Service: 02/09/22 Interval History: follow up for pneumonia, intentional drug overdose denies sob this am feeling depressed Review of Systems Review of Systems: Yes all other systems are reviewed and are negative Constitutional Constitutional: Denies chills and Denies fever(s) Cardiovascular Cardiovascular: Denies chest pain, Denies palpitations and Denies dyspnea Respiratory Respiratory: Denies cough and Denies dyspnea Gastrointestinal Gastrointestinal: Denies abdominal pain, Denies nausea and Denies vomiting Endocrine Endocrine: Denies palpitations Physical Exam Vital Signs: Vital Signs: Last Vital Signs Temp 99.0 F 02/09/22 07:49 Pulse 81 02/09/22 07:49 Resp 18 02/09/22 07:49 BP 125/70 02/09/22 07:49 Pulse Ox 92 02/09/22 07:49 O2 Del Method 02/09/22 07:49 O2 Flow Rate 95 02/06/22 00:15 BMI result Body Mass Index 19.5 Appearing in no acute distress lung sounds are clear to auscultation heart regular rate rhythm, clear S1, S2 positive bowel sounds, abdomen is soft, nontender neuro patient is alert x3, no focal deficits Objective Data Active Medications Acetaminophen (Acetaminophen 325 Mg Tablet) 650 mg PO Q6H PRN PRN Reason: Pain, Mild (Pain Scale 1-3) Last Admin: 02/07/22 23:56 Dose: 650 mg Documented By: AGUSTINA Albuterol/Ipratropium (Albuterol/Iprat 2.5/0.5mg 3 Ml Ampul.Neb) 3 ml INHALE RQ4H PRN PRN Reason: Shortness of Breath/Wheezing Amoxicillin/Clavulanate Potassium (Amoxicillin/Potassium Clav 875 Mg Tablet) 875 mg PO Q12H [facility] Last Admin: 02/09/22 03:10 Dose: 875 mg Documented By: NORTH Docusate Sodium (Docusate Sodium 100 Mg Capsule) 100 mg PO DAILY PRN PRN Reason: Constipation Heparin Sodium (Porcine) (Heparin Sodium,Porcine 5,000 Unit/Ml Vial) 5,000 unit SUBCUT Q12H [facility] Last Admin: 02/08/22 22:58 Dose: 5,000 unit Documented By: NORTH Levetiracetam (Levetiracetam 500 Mg Tablet) 500 mg PO BID [facility] Last Admin: 02/09/22 07:53 Dose: 500 mg Documented By: NADYA Lorazepam (Lorazepam 0.5 Mg Tablet) 0.5 mg PO BEDTIME PRN PRN Reason: anxiety Last Admin: 02/08/22 23:46 Dose: 0.5 mg Documented By: NORTH Magnesium Oxide (Magnesium [facility]ide 400 Mg Tablet) [facility] Last Admin: 02/09/22 07:53 Dose: 400 mg Documented By: NADYA Ondansetron HCl (Ondansetron Hcl 4 Mg/2 Ml Vial) 4 mg IVPUSH Q8H PRN PRN Reason: Nausea and Vomiting Pharmacy Consult (Consult Rx Perform Med Rec) 1 each MISCELLANE ONCE PRN PRN Reason: Consult order Polyethylene Glycol (Polyethylene Glycol 3350 17 Gm Powd.Pack) 17 gm PO DAILY PRN PRN Reason: Constipation Tamsulosin HCl (Tamsulosin Hcl 0.4 Mg Capsule) 0.4 mg PO DAILY [facility] Last Admin: 02/09/22 07:53 Dose: 0.4 mg Documented By: NADYA Labs CBC & Chem 7: 02/07/22 01:57 02/09/22 06:25 Labs: Laboratory Results - last 24 hr 02/08/22 02/09/22 21:08 06:25 Estim Creat Clear Calc 81.7 Estimated GFR > 60 Random Vancomycin 5.8 L Microbiology Microbiology Results: Microbiology 02/06/22 22:50 Blood Culture - Preliminary Blood - Venous No growth after 48 hours. 02/06/22 22:50 Blood Culture - Preliminary Blood - Venous No growth after 48 hours. 02/05/22 20:38 Blood Culture - Final Blood - Venous Coag negative Staphylococcus Assessment and Plan (1) Intentional drug overdose: Status: Acute (2) Aspiration pneumonia: Status: Acute Plan 82-year-old male with past medical history of COPD, hypertension, hyperlipidemia, anxiety and depression, peripheral vascular disease presents to the hospital after attempting to kill himself by intentionally overdosing on aspirin, antidepressant and melatonin suicidal attempt by intentional drug overdose reports taking 25 pills of aspirin, 15 pills on antidepressants in 20 pills of 10 mg melatonin patient hemodynamically stable, no QTC prolongation psych consulted recommend care team evaluation once medically cleared as well as a follow-up psych evaluation for capacity sitter present Stable electrolytes ,Tylenol level 15.3 aspiration pneumonia has evidence of aspiration pneumonia on imaging will cover him with antibiotics for aspiration pneumonia seen by speech, recommend NDD3 with thin liquids aspiration precautions fall likely secondary to lethargy in the setting of overdosing on melatonin and antidepressant seen by PT - rec STR blood cultures growing coag negative staph likely contaminant, repeat cultures negative will d/c vanco seizures continue keppra hyperlipidemia continue statin peripheral vascular disease hold aspirin COPD DuoNeb p.r.n. DVT prophylaxis:? Heparin subQ Attending Dr. Mclean dispo - seen by PT - rec STR.Medically clear, BHN consulted Ongoing hospitalization need: aspirin toxicity/suicidal attempt by intentional drug overdose Patient has sitter due to suicidal attempt. Quality Stroke Does the patient have a stroke diagnosis?: No VTE Prior VTE?: No VTE Risk Level:: Medical - moderate - high VTE Device Contraindication: Treatment Not Indicated VTE Drug Contraindication: N/A - Med Ordered
[2022-02-09 12:00] VITALS: BP 113/61; PULSE 80; RESP 18; TEMP 37.5; O2SAT 92
[2022-02-09 15:25] VITALS: BP 94/53; PULSE 77; RESP 18; TEMP 36.8; O2SAT 92
[2022-02-09 19:12] VITALS: BP 101/58; PULSE 81; RESP 18; TEMP 37; O2SAT 98
[2022-02-09 23:24] VITALS: BP 100/59; PULSE 67; RESP 20; TEMP 36.9; O2SAT 92
[2022-02-09] MEDS: LORazepam 0.5 MG TABLET PO (23:57)
[2022-02-10] MEDS: Amoxicillin/Potassium Clav 875 MG TABLET PO ×2 (05:03→15:14)
[2022-02-10 07:18] LABS: Creatinine Clr Calc Pharmacy 80.4; Estimated Glomerular Filt Rate > 60
[2022-02-10 08:00] VITALS: BP 127/58; PULSE 81; RESP 20; TEMP 37.2; O2SAT 92
[2022-02-10] MEDS: Tamsulosin HCL 0.4 MG CAPSULE PO (09:18)
[2022-02-10] MEDS: levETIRAcetam 500 MG TABLET PO ×2 (09:18→23:57)
[2022-02-10] MEDS: Heparin Sodium,Porcine 5,000 UNIT/ML VIAL 5000 UNIT SUBCUT ×2 (09:18→23:57)
[2022-02-10] MEDS: Magnesium Oxide 400 MG TABLET PO ×2 (09:19→15:15)
[2022-02-10 12:00] VITALS: BP 91/54; PULSE 77; RESP 16; TEMP 37.1; O2SAT 93
--- NOTE | 2022-02-10 15:05 | HO.PM.IMPN ---
Subjective Subjective Date of Service: 02/10/22 Interval History: follow up for pneumonia, intentional drug overdose denies sob this am feeling depressed Review of Systems Review of Systems: Yes all other systems are reviewed and are negative Constitutional Constitutional: Denies chills and Denies fever(s) Cardiovascular Cardiovascular: Denies chest pain, Denies palpitations and Denies dyspnea Respiratory Respiratory: Denies cough and Denies dyspnea Gastrointestinal Gastrointestinal: Denies abdominal pain, Denies nausea and Denies vomiting Endocrine Endocrine: Denies palpitations Physical Exam Vital Signs: Vital Signs: Last Vital Signs Temp 98.8 F 02/10/22 12:00 Pulse 77 02/10/22 12:00 Resp 16 02/10/22 12:00 BP 91/54 L 02/10/22 12:00 Pulse Ox 93 02/10/22 12:00 O2 Del Method 02/10/22 12:00 O2 Flow Rate 95 02/06/22 00:15 BMI result Body Mass Index 19.5 Appearing in no acute distress lung sounds are clear to auscultation heart regular rate rhythm, clear S1, S2 positive bowel sounds, abdomen is soft, nontender neuro patient is alert x3, no focal deficits Objective Data Active Medications Acetaminophen (Acetaminophen 325 Mg Tablet) 650 mg PO Q6H PRN PRN Reason: Pain, Mild (Pain Scale 1-3) Last Admin: 02/07/22 23:56 Dose: 650 mg Documented By: AGUSTINA Albuterol/Ipratropium (Albuterol/Iprat 2.5/0.5mg 3 Ml Ampul.Neb) 3 ml INHALE RQ4H PRN PRN Reason: Shortness of Breath/Wheezing Amoxicillin/Clavulanate Potassium (Amoxicillin/Potassium Clav 875 Mg Tablet) 875 mg PO Q12H [facility] Last Admin: 02/10/22 05:03 Dose: 875 mg Documented By: CAYLA Docusate Sodium (Docusate Sodium 100 Mg Capsule) 100 mg PO DAILY PRN PRN Reason: Constipation Heparin Sodium (Porcine) (Heparin Sodium,Porcine 5,000 Unit/Ml Vial) 5,000 unit SUBCUT Q12H [facility] Last Admin: 02/10/22 09:18 Dose: 5,000 unit Documented By: PEDRITO Levetiracetam (Levetiracetam 500 Mg Tablet) 500 mg PO BID [facility] Last Admin: 02/10/22 09:18 Dose: 500 mg Documented By: PEDRITO Lorazepam (Lorazepam 0.5 Mg Tablet) 0.5 mg PO BEDTIME PRN PRN Reason: anxiety Last Admin: 02/09/22 23:57 Dose: 0.5 mg Documented By: CAYLA Magnesium Oxide (Magnesium Oxide 400 Mg Tablet) 400 mg PO BIDPC [facility] Last Admin: 02/10/22 09:19 Dose: 400 mg Documented By: PEDRITO Ondansetron HCl (Ondansetron Hcl 4 Mg/2 Ml Vial) 4 mg IVPUSH Q8H PRN PRN Reason: Nausea and Vomiting Pharmacy Consult (Consult Rx Perform Med Rec) 1 each MISCELLANE ONCE PRN PRN Reason: Consult order Polyethylene Glycol (Polyethylene Glycol 3350 17 Gm Powd.Pack) 17 gm PO DAILY PRN PRN Reason: Constipation Tamsulosin HCl (Tamsulosin Hcl 0.4 Mg Capsule) 0.4 mg PO DAILY [facility] Last Admin: 02/10/22 09:18 Dose: 0.4 mg Documented By: PEDRITO Labs CBC & Chem 7: 02/07/22 01:57 02/10/22 06:17 Labs: Laboratory Results - last 24 hr 02/10/22 06:17 Estim Creat Clear Calc 80.4 Estimated GFR > 60 Assessment and Plan (1) Intentional drug overdose: Status: Acute (2) Aspiration pneumonia: Status: Acute Plan 82-year-old male with past medical history of COPD, hypertension, hyperlipidemia, anxiety and depression, peripheral vascular disease presents to the hospital after attempting to kill himself by intentionally overdosing on aspirin, antidepressant and melatonin Suicidal attempt by intentional drug overdose reports taking 25 pills of aspirin, 15 pills on antidepressants in 20 pills of 10 mg melatonin patient hemodynamically stable, no QTC prolongation psych consulted recommend care team evaluation once medically cleared sitter present Stable electrolytes ,Tylenol level 15.3 aspiration pneumonia has evidence of aspiration pneumonia on imaging will cover him with antibiotics for aspiration pneumonia seen by speech, recommend NDD3 with thin liquids aspiration precautions fall likely secondary to lethargy in the setting of overdosing on melatonin and antidepressant seen by PT - rec STR blood cultures growing coag negative staph likely contaminant, repeat cultures negative will d/c vanco seizures continue keppra hyperlipidemia continue statin peripheral vascular disease hold aspirin COPD DuoNeb p.r.n. DVT prophylaxis:? Heparin subQ Attending Dr. Mclean dispo - seen by PT - rec STR. Medically clear, BHN consulted 02/09/22 Ongoing hospitalization need: aspirin toxicity/suicidal attempt by intentional drug overdose Patient has sitter due to suicidal attempt. Quality Stroke Does the patient have a stroke diagnosis?: No VTE Prior VTE?: No VTE Risk Level:: Medical - moderate - high VTE Device Contraindication: Treatment Not Indicated VTE Drug Contraindication: N/A - Med Ordered
[2022-02-10 16:00] VITALS: BP 104/52; PULSE 73; RESP 16; TEMP 36.6; O2SAT 94
[2022-02-10 19:53] VITALS: BP 117/55; PULSE 80; RESP 16; TEMP 36.9; O2SAT 94
[2022-02-10 23:39] VITALS: BP 115/62; PULSE 88; RESP 16; TEMP 37.7; O2SAT 94
[2022-02-10] MEDS: LORazepam 0.5 MG TABLET PO (23:57)
[2022-02-11] MEDS: Amoxicillin/Potassium Clav 875 MG TABLET PO (03:55)
[2022-02-11 04:00] VITALS: BP 121/54; PULSE 94; RESP 20; TEMP 37.9; O2SAT 92
[2022-02-11 06:43] LABS: Creatinine Clr Calc Pharmacy 80.4; Estimated Glomerular Filt Rate > 60
[2022-02-11 08:00] VITALS: BP 124/61; PULSE 84; RESP 20; TEMP 38.2; O2SAT 91
[2022-02-11] MEDS: Tamsulosin HCL 0.4 MG CAPSULE PO (09:00)
[2022-02-11] MEDS: levETIRAcetam 500 MG TABLET PO (09:00)
[2022-02-11] MEDS: Acetaminophen 325 MG TABLET 650 MG PO (09:00)
[2022-02-11] MEDS: Magnesium Oxide 400 MG TABLET PO (09:01)
--- NOTE | 2022-02-11 10:16 | HO.PM.IMPN ---
Subjective Subjective Date of Service: 02/11/22 Interval History: follow up for pneumonia, intentional drug overdose denies sob this am feeling depressed Review of Systems Review of Systems: Yes all other systems are reviewed and are negative Constitutional Constitutional: Denies chills and Denies fever(s) Cardiovascular Cardiovascular: Denies chest pain, Denies palpitations and Denies dyspnea Respiratory Respiratory: Denies cough and Denies dyspnea Gastrointestinal Gastrointestinal: Denies abdominal pain, Denies nausea and Denies vomiting Endocrine Endocrine: Denies palpitations Physical Exam Vital Signs: Vital Signs: Last Vital Signs Temp 100.7 F H 02/11/22 08:00 Pulse 84 02/11/22 08:00 Resp 20 02/11/22 08:00 BP 124/61 02/11/22 08:00 Pulse Ox 91 L 02/11/22 08:00 O2 Del Method 02/11/22 08:00 O2 Flow Rate 95 02/06/22 00:15 BMI result Body Mass Index 19.5 Appearing in no acute distress lung sounds are clear to auscultation heart regular rate rhythm, clear S1, S2 positive bowel sounds, abdomen is soft, nontender neuro patient is alert x3, no focal deficits Objective Data Active Medications Acetaminophen (Acetaminophen 325 Mg Tablet) 650 mg PO Q6H PRN PRN Reason: Pain, Mild (Pain Scale 1-3) Last Admin: 02/11/22 09:00 Dose: 650 mg Documented By: KIMBERLY Albuterol/Ipratropium (Albuterol/Iprat 2.5/0.5mg 3 Ml Ampul.Neb) 3 ml INHALE RQ4H PRN PRN Reason: Shortness of Breath/Wheezing Amoxicillin/Clavulanate Potassium (Amoxicillin/Potassium Clav 875 Mg Tablet) 875 mg PO Q12H [facility] Last Admin: 02/11/22 03:55 Dose: 875 mg Documented By: CAYLA Docusate Sodium (Docusate Sodium 100 Mg Capsule) 100 mg PO DAILY PRN PRN Reason: Constipation Heparin Sodium (Porcine) (Heparin Sodium,Porcine 5,000 Unit/Ml Vial) 5,000 unit SUBCUT Q12H [facility] Last Admin: 02/10/22 23:57 Dose: 5,000 unit Documented By: CAYLA Levetiracetam (Levetiracetam 500 Mg Tablet) 500 mg PO BID [facility] Last Admin: 02/11/22 09:00 Dose: 500 mg Documented By: KIMBERLY Magnesium Oxide (Magnesium Oxide 400 Mg Tablet) 400 mg PO BIDPC [facility] Last Admin: 02/11/22 09:01 Dose: 400 mg Documented By: KIMBERLY Ondansetron HCl (Ondansetron Hcl 4 Mg/2 Ml Vial) 4 mg IVPUSH Q8H PRN PRN Reason: Nausea and Vomiting Pharmacy Consult (Consult Rx Perform Med Rec) 1 each MISCELLANE ONCE PRN PRN Reason: Consult order Polyethylene Glycol (Polyethylene Glycol 3350 17 Gm Powd.Pack) 17 gm PO DAILY PRN PRN Reason: Constipation Tamsulosin HCl (Tamsulosin Hcl 0.4 Mg Capsule) 0.4 mg PO DAILY [facility] Last Admin: 02/11/22 09:00 Dose: 0.4 mg Documented By: KIMBERLY Labs CBC & Chem 7: 02/07/22 01:57 02/11/22 05:46 Labs: Laboratory Results - last 24 hr 02/11/22 05:46 Estim Creat Clear Calc 80.4 Estimated GFR > 60 Microbiology Microbiology Results: Microbiology 02/05/22 20:37 Blood Culture - Final Blood - Venous No growth after 5 days. Assessment and Plan (1) Intentional drug overdose: Status: Acute (2) Aspiration pneumonia: Status: Acute Plan 82-year-old male with past medical history of COPD, hypertension, hyperlipidemia, anxiety and depression, peripheral vascular disease presents to the hospital after attempting to kill himself by intentionally overdosing on aspirin, antidepressant and melatonin Suicidal attempt by intentional drug overdose reports taking 25 pills of aspirin, 15 pills on antidepressants in 20 pills of 10 mg melatonin patient hemodynamically stable, no QTC prolongation psych consulted recommend care team evaluation once medically cleared sitter present Stable electrolytes ,Tylenol level 15.3 Plan for inpatient psych aspiration pneumonia has evidence of aspiration pneumonia on imaging will cover him with antibiotics for aspiration pneumonia, augmentin seen by speech, recommend NDD3 with thin liquids aspiration precautions fall likely secondary to lethargy in the setting of overdosing on melatonin and antidepressant seen by PT - rec STR blood cultures growing coag negative staph likely contaminant, repeat cultures negative Vanco stopped seizures continue keppra hyperlipidemia continue statin peripheral vascular disease hold aspirin COPD DuoNeb p.r.n. DVT prophylaxis:? Heparin subQ Attending Dr. Vinay [facility] Seen by N rec inpatient psych, bed search in process Ongoing hospitalization need: aspirin toxicity/suicidal attempt by intentional drug overdose Patient has sitter due to suicidal attempt. Quality Stroke Does the patient have a stroke diagnosis?: No VTE Prior VTE?: No VTE Risk Level:: Medical - moderate - high VTE Device Contraindication: Treatment Not Indicated VTE Drug Contraindication: N/A - Med Ordered
[2022-02-11 11:17] VITALS: PULSE 57; RESP 20; TEMP 36.9; O2SAT 93
[2022-02-11 11:36] VITALS: BP 90/55
[2022-02-11] MEDS: Heparin Sodium,Porcine 5,000 UNIT/ML VIAL 5000 UNIT SUBCUT (13:09)
--- NOTE | 2022-02-11 13:21 | MHC.SL.SWA ---
Speech Pathologist Impression: Oral phase dysphagia Dysphasia Diet Status: No Change Liquid Consistency and Strategies for Safe Swallow: Liquid Intake Recommendation: Thin Liquid Intake Strategies: Small Sips Solid Food Consistency: Dietary Recommendations: Chopped/Advanced (NDD3) Additional Modifications to Solid Foods: Moisten foods with sauce/gravy Oral Medication Intake: Whole with Puree Please contact the pharmacy regarding appropriate crushable or liquid drug formulations that are available whenever modified delivery is recommended. Compensatory Strategies and Precautions to be Taken for Safe Swallow: Sitting Upright (90 deg) Tilt Head Left Liquids from Cup Small Bites and Sips Supervision While Eating and Drinking for Safe Swallow: Total Supervision (1:1) Foods to Avoid: Avoid hard, sticky, and tough to chew foods Swallowing Recommended Treatments: Compens. Strategy Educat. Recommendation for Speech: Patient on least restrictive diet for his needs, tolerating well. Recommend continue on Chopped/Advanced (NDD3) with THIN liquids, pills whole with liquid or puree. Further ST intervention no longer warranted at this level of care. Please re-refer with any changes or further concern. Residential Manager Clinican/Clinical Fellow: No Supervisory Statement: I have reviewed and agree with the student/clinical fellow's documentation: N/A Speech Language Pathologist: Cassandra Tian M.A., CCC-SPUDDER
--- NOTE | 2022-02-11 13:42 | P.DS_ITS ---
DS: Providers Provider Date of Service: 02/11/22 Date of admission: 02/05/22 22:12 Primary care physician: Unknown Physician Consults: 02/06/22 06:31 Consult to Psychiatry Routine Consulting Provider: Psych Covering Reason for consultation: suicide attempt Has provider been notified: No 02/09/22 11:58 BHN [Consult to Crisis] Stat Reason for consultation: medically clear Has provider been notified: No 02/10/22 15:06 BHN [Consult to Crisis] Stat Reason for consultation: medically clear Has provider been notified: No Attending physician on discharge: Antonio Moreno Discharging clinician: Zehra Gray DS: Diagnosis Discharge Diagnosis (1) Intentional drug overdose: Status: Acute (2) Aspiration pneumonia: Status: Acute DS: Summary Hospital Course Hospital Course: History and physical as per admitting provider This is an 82-year-old male with past medical history of COPD, BPH, depression anxiety, HLD, HTN, peripheral vascular disease, and history of seizure disorder,.? The initial story I was presented with was that patient had come in to the hospital via ambulance with complaints of weakness and fall.? He reported to the ED that he had fallen off his bed and that he was on the floor for unknown period of time. When I interviewed the patient, and asked about his presentation, he reports that he came into the hospital because he tired to take my life again .? When asked more about it, he reports that he took 25 pills of aspirin, 15 pills of antidepressant, 20 pills of melatonin.? He reports that he was trying to sleep, had difficulty sleeping, woke up at 04:00, with urinary urgency, could not pee, felt very depressed, and took these medications to see if they could help him sleep.? He reports a chronic smoker's cough, shortness of breath that is SP his baseline, sputum production at baseline.? He at this time denies any chest pain, no palpitations, no headache or change in vision, no abdominal pain nausea or vomiting, no diarrhea constipation, no urinary symptoms and no lower extremity edema.?He reports that he has been feeling significantly more depressed about hi s state.? He lives alone. Patient denies suicidal ideation at this time. He does report difficulty swallowing some foods and feels that some things sometimes get stuck in his throat. On arrival to the ED hemodynamically stable with no significant abnormal vitals Labs are significant for WBC count of 13.6, pH of 7.45, sodium of 134, CPK of 394, BNP of 115, UA negative, after we were told that the patient took 20 pills of aspirin, salicylate level was checked which was found to be 40.6, urine drug screen negative.?Chest CT shows severe emphysema, filling defect in the right lower lobe bronchus with bronchial wall thickening seen with aspiration. Poison control was called, and patient will be admitted for further management . Suicidal attempt by intentional drug overdose reports taking 25 pills of aspirin, 15 pills on antidepressants in 20 pills of 10 mg melatonin patient hemodynamically stable, no QTC prolongation psych consulted recommend care team evaluation once medically cleared sitter present during admission Stable electrolytes ,Tylenol level 15.3 Seen evaluated by PHN/crisis team recommend transfer to inpatient geriatric psych aspiration pneumonia has evidence of aspiration pneumonia on imaging covered with Augmentin, continue 3 more days seen by speech, recommend NDD3 with thin liquids aspiration precautions fall likely secondary to lethargy in the setting of overdosing on melatonin and antidepressant may continue working with physical therapy blood cultures growing coag negative staph likely contaminant, repeat cultures negative Vanco stopped seizures No seizures continue keppra hyperlipidemia continue statin peripheral vascular disease continue aspirin COPD albuterol as needed Time Spent with Patient Time attestation: Total time spent providing and/or coordinating discharge services: Discharge coordination time: Greater than 30 minutes Quality: Safe Use of Opioids Does Pt have an Active Cancer Diagnosis on the Problem List?: No Quality: Stroke Does the patient have a stroke diagnosis?: No Physical Exam Vital Signs: Vital Signs: Last Vital Signs Temp 98.4 F 02/11/22 11:17 Pulse 57 02/11/22 11:17 Resp 20 02/11/22 11:17 BP 90/55 L 02/11/22 11:36 Pulse Ox 93 02/11/22 11:17 O2 Del Method 02/11/22 11:17 O2 Flow Rate 95 02/06/22 00:15 BMI result Body Mass Index 19.5 Appearing in no acute distress head is normocephalic atraumatic eyes pupils are PERRLA sclera is anicteric mouth throat mucous membranes are intact and moist neck is supple no lymphadenopathy, no JVD noted lung sounds are clear to auscultation heart regular rate rhythm, clear S1, S2 positive bowel sounds, abdomen is soft, nontender neuro patient is alert x3, no focal deficits DS: Data Data Completed and Pending Labs on day of discharge: Laboratory Results - last 24 hr 02/11/22 05:46 Creatinine 0.61 Estim Creat Clear Calc 80.4 Estimated GFR > 60 Preliminary micro results at discharge 02/06/22 22:50 Blood Culture - Preliminary Blood - Venous No growth after 48 hours. 02/06/22 22:50 Blood Culture - Preliminary Blood - Venous No growth after 48 hours. Discharge Plan Discharge Anticipated Discharge Date/Time: 02/11/22 13:31 Patient Disposition: Xfer Psychiatric Hosp Discharge Diagnosis: Suicide attempt via overdose Aspiration Fall Discharge Medications: New amoxicillin-pot clavulanate 875-125 mg Tablet 1 tab PO Q12H 3 Days Qty: 6 0RF Continued levetiracetam 500 mg tablet 500 mg PO BID Qty: 180 3RF mirtazapine 15 mg tablet 15 mg PO BEDTIME 90 Days Qty: 90 2RF tamsulosin 0.4 mg capsule 0.4 mg PO DAILY 90 Days Qty: 90 2RF lorazepam 0.5 mg tablet 0.5 mg PO BEDTIME PRN (Reason: anxiety) Qty: 90 2RF polyethylene glycol 3350 [Miralax] 17 gram/dose powder 17 g PO DAILY PRN (Reason: Constipation) aspirin [Adult Aspirin Regimen] 81 mg tablet,delayed release (DR/EC) 81 mg PO DAILY melatonin 10 mg capsule 10 mg PO BEDTIME PRN (Reason: Insomnia) Discharge Orders: Discharge Order (Routine); Ordered 02/11/22 Ordered By: Zehra Gray Diet: Advance to usual diet Activity on Discharge: As tolerated Stand Alone Forms: Patient Portal Discharge page Care Plan Goals: take all medications as prescribed Health Concerns: Suicide attempt via overdose Aspiration Fall Plan of Treatment: transfer to inpatient geriatric psych unit Assessment: See discharge summary Discharge Date/Time: 02/11/22 13:51
[2022-02-11 13:47] LABS: MANUAL DIFF FLAG NO
--- NOTE | 2022-02-11 13:49 | PC.NURSE ---
Alert and oriented. PRN tyelenol given this morning for general disc/low grade temp with good effect. VSS, no acute resp. distress noted. Seen by psych, new order to d/c patient to S1. Nurse to nurse report called in. [facility] staff will transport.
[2022-02-11 13:50] LABS: Basophils Percent Auto 0.5 % (0-2); Eosinophils Absolute Auto 0.1 X10*3/uL (0.0-0.4); Eosinophils Percent Auto 1.5 % (0-4); Hematocrit 39.2 % (42.0-52.0); Hemoglobin 13.2 g/dl (14.0-18.0); Imm Gran Abs Auto 0.11 X10*3/uL (0.00-0.03); Imm Gran Pct Auto 2.7 % (0.0-0.4); Lymphocytes Absolute Auto 0.5 X10*3/uL (1.2-4.9); Lymphocytes Percent Auto 12.6 % (20-40); Mean Corpuscular HGB Conc 33.7 g/dl (31.0-36.0); Mean Corpuscular Hemoglobin 31.1 pg (27.0-33.0); Mean Corpuscular Volume 92.5 fL (80.0-98.0); Mean Platelet Volume 9.1 fL (9.4-12.4); Monocytes Absolute Auto 0.8 X10*3/uL (0.1-1.2); Monocytes Percent Auto 18.7 % (2-11); Neutrophils Absolute Auto 2.6 x10*3/uL (2.0-8.3); Platelet Count 202 X10*3/uL (160-400); Red Blood Count 4.24 X10*6/uL (4.60-5.80); Red Cell Distribution Width 13.2 % (11.0-16.0); White Blood Count 4.1 X10*3/uL (4.8-10.8)
--- NOTE | 2022-02-11 13:54 | MHC.CM.PN ---
IMM 02/11/22 Patient is discharged from [facility]. He is medically cleared. N consult qualifies patient for INPT Psych. He is scheduled to transfer to today.
== END 2022-02-11 13:51 | DRG 917 ==
LOC: HO.ED 21:07 → HO.EDOVER 22:27 → HO.IMC 02-06 00:49
PROVIDERS: Internal Medicine; Physician Assistant; Admitting Provider Internal Medicine; Emergency Provider Emergency Medicine; Visit Provider Nurse Practitioner Acute Care
DX: T39.012A Poisoning by aspirin, intentional self-harm, initial encounter (principal); J69.0 Pneumonitis due to inhalation of food and vomit; T43.202A Poisoning by unspecified antidepressants, intentional self-harm, initial encounter; E78.00 Pure hypercholesterolemia, unspecified; G40.909 Epilepsy, unspecified, not intractable, without status epilepticus; I73.9 Peripheral vascular disease, unspecified; J44.9 Chronic obstructive pulmonary disease, unspecified; N40.0 Benign prostatic hyperplasia without lower urinary tract symptoms; I10 Essential (primary) hypertension; Z20.822 Contact with and (suspected) exposure to COVID-19; Z87.891 Personal history of nicotine dependence; Z79.82 Long term (current) use of aspirin; Z79.899 Other long term (current) drug therapy
CPT/HCPCS: 36415; 70450; 71045; 71260; 72125; 74177; 80048; 80053; 80143; 80179; 80202; 80307; 81001; 81003; 82550; 82565; 82803; 83605; 83735; 83880; 84132; 84484; 85025; 85027; 85610; 87040; 87147; 87205; 87635; 92526; 92610; 93005; 97162; 99285; C1758; J0295; J1200; J3370; Q9967

== ENCOUNTER 2022-02-11 13:59 | Inpatient (IN) | payer MEDICARE, SELFPAY ==
--- NOTE | ~2022-02-11 | CT_ITS ---
EXAMINATION: CT HEAD WITHOUT CONTRAST (STROKE PROTOCOL) CLINICAL INFORMATION: Stroke protocol. Left-sided weakness. COMPARISON: Previous head CT scans most recent January 2022 TECHNIQUE: Contiguous axial imaging was performed from the skull base to vertex without intravenous administration of contrast. This CT examination was performed using dose optimization techniques as appropriate, variously including the following: *Automated exposure control *Adjustment of mA and/or kV according to patient size (this includes techniques or standardized protocols for targeted exams where dose is matched to indication/reason for exam; i.e. extremities or head) *Use of iterative reconstruction technique DLP: 723 mGy-cm FINDINGS: The small left extra-axial low-attenuation fluid collection or subdural hygroma appears decreased from previous exam. There is no evidence for a new extra-axial collection. There is no evidence for intra or extra-axial hemorrhage. There is slight left to right midline shift measuring 6 mm. This is similar to previous exam. The ventricles and extra-axial CSF spaces are prominent, particularly on the left with marked asymmetric enlargement of the left sylvian fissure compared to the right likely related to left-sided atrophy. Ventricles and extra-axial CSF spaces are otherwise appropriate. There may be an old right basal ganglia lacunar infarct that is unchanged. No mass, mass effect or acute infarct is seen. Review of bone windows is normal. No skull fracture is seen. Increased inflammatory change or membranous soft tissue thickening in the right maxillary sinus compared to recent exam. Visualized paranasal sinuses are otherwise clear. CT/CT head for stroke IMPRESSION: No acute intracranial findings compared to most recent exam January 2022. Left subdural hygroma appears slightly decreased. There is increasing inflammatory change in the right maxillary sinus. This critical result was discussed with Dr. Ko at 834 hours on 02/19/2022. It was ascertained that the content and urgency of the report was understood at the time of direct communication.
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
[2022-02-11 16:30] VITALS: BP 95/54; PULSE 83; RESP 18; TEMP 36.9; O2SAT 92
[2022-02-11] MEDS: Amoxicillin/Potassium Clav 875 MG TABLET PO (18:17)
--- NOTE | 2022-02-11 19:15 | PC.ADMIT ---
Pt. [place] [facility] [place] accompanied by this selling underwriter and his patient observer. Admitted on CV. Upset upon arrival to find he was in semi-private room and there are not clocks ant TVs in room. Alert and oriented X 4. Pt. can stand-pivot transfer but reports he is unable to ambulate. He had been living in his home independently, declining in function and having falls, but refusing services and refusing to move to a higher level of care. He was feeling hopeless over his functional decline and impulsively overdosed on whatever meds he had in the house, resulting in his stay [place] [facility] He denies active SI with plan, but insists he Has been there and done it in life and is all done and we're not going to change that. He denies any depression and mood seems euthymic. Talks animatedly with his 1:1.
[2022-02-11 20:00] VITALS: BP 130/62; PULSE 85; RESP 18; TEMP 36.5; O2SAT 92
[2022-02-11] MEDS: Tamsulosin HCL 0.4 MG CAPSULE PO (20:46)
[2022-02-11] MEDS: Aspirin Enteric Coated 81 MG TABLET.DR PO (20:46)
[2022-02-11] MEDS: levETIRAcetam 500 MG TABLET PO (20:46)
[2022-02-11] MEDS: OLANZapine 2.5 MG TABLET PO (20:46)
[2022-02-11] MEDS: Mirtazapine 15 MG TABLET PO (20:46)
[2022-02-11] MEDS: Melatonin 3 MG TABLET 9 MG PO (23:58)
[2022-02-12] MEDS: Amoxicillin/Potassium Clav 875 MG TABLET PO ×2 (06:20→17:48)
[2022-02-12 07:30] VITALS: BP 119/62; PULSE 83; RESP 15; TEMP 36.3; O2SAT 92
[2022-02-12 08:48] LABS: Alanine Aminotransferase 70 U/L (0-40); Albumin Level 2.9 g/dL (3.5-5.0); Alkaline Phosphatase 53 U/L (39-117); Anion Gap 10 (12-20); Aspartate Amino Transferase 59 U/L (5-37); Bilirubin Total 0.5 mg/dL (0.0-1.0); Blood Urea Nitrogen 19 mg/dL (9-16); Calcium 7.9 mg/dL (8.4-10.2); Carbon Dioxide 25 mmol/L (22-29); Chloride 103 mmol/L (96-108); Cholesterol 124 mg/dL; Estimated Glomerular Filt Rate > 60; Glucose Fasting 92 mg/dL (60-99); HDL Cholesterol 30 mg/dL; LDL Cholesterol Calculated 81 mg/dl; Potassium 3.7 mmol/L (3.3-5.1); Sodium 134 mmol/L (135-145); Total Protein 5.2 g/dL (6.5-8.0); Triglycerides 66 mg/dL
[2022-02-12] MEDS: levETIRAcetam 500 MG TABLET PO ×2 (10:28→22:15)
--- NOTE | 2022-02-12 11:21 | P.PNPSI_ITS ---
Subjective Subjective Date of Service: 02/12/22 Reason For Visit: Suicidal Attempt Subjective Notes: Conditional Voluntary Interim History: The nursing staff reported the patient has been pleasant and compliant with treatment. The staff has noticed sometimes that his sling sarcastic. The occupational therapist has assessed him about ambulation and fine motor s kills and he is slightly impaired, he had day condition at when he was not Medicine. We will order a PT evaluation today. The patient is able to contract for safety so we will change his level of obs ervation later on that day. He admitted slide quality of sleep last night since we added mirtazapine and a low dose of olanzapine due to psychotic symptoms on admission. Mental Status Exam Mental Status Exam Patient Appearance: Well Grooomed Patient Orientation: Person and Situation Level of Consciousness: Awake and Appropriate Patient Behavior: Guarded and Passive Mood Description: Constricted Affect Description: Labile Patient Cognition Impaired: Yes Ability to Follow Directions: Good Speech Pattern: Clear Hallucinations: None Delusions: Ideas of Reference Thought Process: Distracted, Evasive and Slowed Thinking Thought Content: positive for [place] and positive for Circumstantial Judgement: Fair Diagnostics Vital Signs (24Hr): Vital Signs - 24 hr 02/11/22 16:30 02/11/22 20:00 Temperature 98.5 F 97.7 F Pulse Rate 83 85 Respiratory Rate 18 18 Blood Pressure 95/54 L 130/62 Pulse Oximetry 92 92 Oxygen Delivery Method Room Air Room Air Labs Results: 02/12/22 08:00 Labs: Laboratory Results - last 48 hr 02/12/22 08:00 Sodium 134 L Potassium 3.7 Chloride 103 Carbon Dioxide 25 Anion Gap 10 L BUN 19 H Creatinine 0.64 Estim Creat Clear Calc TNP Estimated GFR > 60 Fasting Glucose 92 Calcium 7.9 L D Total Bilirubin 0.5 AST 59 H ALT 70 H Alkaline Phosphatase 53 Total Protein 5.2 L Albumin 2.9 L Triglycerides 66 Cholesterol 124 LDL Cholesterol, Calc 81 HDL Cholesterol 30 Medications Medications Current Medications Acetaminophen (Acetaminophen 325 Mg Tablet) 650 mg PO Q6H PRN PRN Reason: Headache/Pain Mild Scale (1-3) Al Hydroxide/Mg Hydroxide (Magnesium Hydrox/Alum Hydrox 30 Ml Oral.Susp) 30 ml PO Q6H PRN PRN Reason: Heartburn/Nausea Amoxicillin/Clavulanate Potassium (Amoxicillin/Potassium Clav 875 Mg Tablet) 875 mg PO Q12H [facility] Last Admin: 02/12/22 06:20 Dose: 875 mg Aspirin (Aspirin Enteric Coated 81 Mg Tablet.Dr) 81 mg PO BEDTIME [facility] Last Admin: 02/11/22 20:46 Dose: 81 mg Hydroxyzine HCl (Hydroxyzine Hcl 25 Mg Tablet) 25 mg PO Q6H PRN PRN Reason: Anxiety Levetiracetam (Levetiracetam 500 Mg Tablet) 500 mg PO BID [facility] Last Admin: 02/12/22 10:28 Dose: 500 mg Magnesium Hydroxide (Milk Of Magnesia 30 Ml Oral.Susp) 30 ml PO DAILY PRN PRN Reason: Constipation Melatonin (Melatonin 3 Mg Tablet) 9 mg PO BEDTIME [facility] Last Admin: 02/11/22 23:58 Dose: 9 mg Mirtazapine (Mirtazapine 15 Mg Tablet) 15 mg PO BEDTIME [facility] Last Admin: 02/11/22 20:46 Dose: 15 mg Olanzapine (Olanzapine 2.5 Mg Tablet) 2.5 mg PO BEDTIME [facility] Last Admin: 02/11/22 20:46 Dose: 2.5 mg Tamsulosin HCl (Tamsulosin Hcl 0.4 Mg Capsule) 0.4 mg PO BEDTIME [facility] Last Admin: 02/11/22 20:46 Dose: 0.4 mg Trazodone HCl (Trazodone Hcl 50 Mg Tablet) 50 mg PO BEDTIME PRN PRN Reason: Insomnia Allergies Allergies Allergy/AdvReac Type Severity Reaction Status Date / Time No Known Allergies Allergy Verified 02/05/22 19:19 Assessment & Plan Assessment & Plan (1) Major depressive disorder: Status: Acute Code(s): F32.9 - Major depressive disorder, single episode, unspecified (2) Suicide attempt: Status: Acute Code(s): T14.91XA - Suicide attempt, initial encounter (3) Aspiration pneumonia: Status: Acute Code(s): J69.0 - Pneumonitis due to inhalation of food and vomit (4) Seizure disorder: Status: Acute Code(s): G40.909 - Epilepsy, unspecified, not intractable, without status epilepticus (5) BPH (benign prostatic hyperplasia): Qualifiers: Lower urinary tract symptom detail: weak urinary stream Lower urinary tract symptom presence: symptoms present Qualified Code(s): N40.1 - Benign prostatic hyperplasia with lower urinary tract symptoms; R39.12 - Poor urinary stream Status: Acute Code(s): N40.0 - Benign prostatic hyperplasia without lower urinary tract symptoms (6) 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 The patient carries a diagnosis of depression and he was previously admitted for years ago at [facility]. Plan 1. Gather collateral information. 2. Continue Remeron 15 mg p.o. q.h.s. to target depression and anxiety. 3. Start a low dose of Zyprexa 2.5 mg p.o. q.h.s. to target psychotic symptoms. 4. Continue with medcal workout. 5. 1:1 for the next 24 hours for safety. 6. Occupational therapist did a [place] today and he scored 22/30 and his Gilles test is 3.6. I spent ___20___ minutes with the patient and/or on the patient floor today, greater than?50% of which was spent counseling/coordinating care. Reason for contiued inpatient stay Substantial Risk for: inability to function, rapid decompensation and med/psych decompensation
[2022-02-12 14:44] VITALS: BP 119/62; PULSE 83; O2SAT 88
[2022-02-12 18:00] VITALS: BP 140/66; PULSE 80; RESP 17; TEMP 37; O2SAT 93
[2022-02-12] MEDS: Tamsulosin HCL 0.4 MG CAPSULE PO (22:15)
[2022-02-12] MEDS: Mirtazapine 15 MG TABLET PO (22:15)
[2022-02-12] MEDS: Aspirin Enteric Coated 81 MG TABLET.DR PO (22:15)
[2022-02-12] MEDS: OLANZapine 2.5 MG TABLET PO (22:15)
[2022-02-12] MEDS: Acetaminophen 325 MG TABLET 650 MG PO (22:22)
[2022-02-13] MEDS: Melatonin 3 MG TABLET 9 MG PO ×2 (00:05→21:18)
[2022-02-13] MEDS: traZODone HCL 50 MG TABLET PO ×2 (00:11→21:19)
[2022-02-13] MEDS: hydrOXYzine HCL 25 MG TABLET PO ×2 (03:50→21:18)
[2022-02-13] MEDS: Amoxicillin/Potassium Clav 875 MG TABLET PO ×2 (06:18→17:54)
[2022-02-13] MEDS: levETIRAcetam 500 MG TABLET PO ×2 (08:44→21:20)
--- NOTE | 2022-02-13 13:12 | MHC.CLN ---
NUTRITION VISITED WITH PATIENT AT [facility]. ORDERED OWN FOOD. HAD DOUBLE FISH. APPEARS TO BE EATING WELL AND REPORTED GOOD APPETITE. APPEARS THIN BUT NO SIGNS OF MALNUTRITION. FOLLOW FOR WEIGHT AND INTAKE.
--- NOTE | 2022-02-13 13:41 | HO.PSYCHPN ---
Subjective Subjective Date of Service: 02/13/22 Reason For Visit: Suicidal Attempt Subjective Notes: Conditional Voluntary Interim History: The nursing staff reported the patient is on one-to-one for suicidal ideation. The sr. social media & mobile manager talk with the nephew and he reports that he had been more isolative since COVID-19 started and he had been independent at home but 3 years ago he was suicidal and was admitted at [facility].. The occupational therapist reported that he scored 22/30 on the [place] test and the Gilles test history 0.6. His mobility has been lowered. Physical therapy saw him yesterday after the consult and apparently he will need to be seen twice a week for reconditioning. The sr. social media & mobile manager reported that we will do a family meeting soon and the patient has said that he does not want to go to a [place] [facility] facility. On interview the patient denies auditory hallucinations apparently he was psychotic 3 years ago so we decided to stop Zyprexa and keep Remeron at night. Mental Status Exam Mental Status Exam Patient Appearance: Appropriate Patient Orientation: Person and Situation Level of Consciousness: Awake Patient Behavior: Cooperative and Passive Mood Description: Withdrawn Affect Description: Constricted Patient Cognition Impaired: Yes Ability to Follow Directions: Fair Speech Pattern: Clear Hallucinations: None Delusions: Not Present Thought Process: Linear Thought Content: positive for Circumstantial Judgement: Fair Diagnostics Vital Signs (24Hr): Vital Signs - 24 hr 02/12/22 14:44 02/12/22 18:00 Temperature 98.6 F Pulse Rate 83 80 Respiratory Rate 17 Blood Pressure 119/62 140/66 H Pulse Oximetry 88 L 93 Oxygen Delivery Method Room Air Labs Results: 02/12/22 08:00 Labs: Laboratory Results - last 48 hr 02/12/22 08:00 Sodium 134 L Potassium 3.7 Chloride 103 Carbon Dioxide 25 Anion Gap 10 L BUN 19 H Creatinine 0.64 Estim Creat Clear Calc TNP Estimated GFR > 60 Fasting Glucose 92 Calcium 7.9 L D Total Bilirubin 0.5 AST 59 H ALT 70 H Alkaline Phosphatase 53 Total Protein 5.2 L Albumin 2.9 L Triglycerides 66 Cholesterol 124 LDL Cholesterol, Calc 81 HDL Cholesterol 30 Medications Medications Current Medications Acetaminophen (Acetaminophen 325 Mg Tablet) 650 mg PO Q6H PRN PRN Reason: Headache/Pain Mild Scale (1-3) Last Admin: 02/12/22 22:22 Dose: 650 mg Al Hydroxide/Mg Hydroxide (Magnesium Hydrox/Alum Hydrox 30 Ml Oral.Susp) 30 ml PO Q6H PRN PRN Reason: Heartburn/Nausea Amoxicillin/Clavulanate Potassium (Amoxicillin/Potassium Clav 875 Mg Tablet) 875 mg PO Q12H [facility] Last Admin: 02/13/22 06:18 Dose: 875 mg Aspirin (Aspirin Enteric Coated 81 Mg Tablet.Dr) 81 mg PO BEDTIME [facility] Last Admin: 02/12/22 22:15 Dose: 81 mg Hydroxyzine HCl (Hydroxyzine Hcl 25 Mg Tablet) 25 mg PO Q6H PRN PRN Reason: Anxiety Last Admin: 02/13/22 03:50 Dose: 25 mg Ipratropium [place] (Ipratropium [place] 1 Puff/17 Mcg Inhaler) 2 puff INHALE RQ4H WHILE AWAKE PRN PRN Reason: Shortness of Breath Levetiracetam (Levetiracetam 500 Mg Tablet) 500 mg PO BID [facility] Last Admin: 02/13/22 08:44 Dose: 500 mg Magnesium Hydroxide (Milk Of Magnesia 30 Ml Oral.Susp) 30 ml PO DAILY PRN PRN Reason: Constipation Melatonin (Melatonin 3 Mg Tablet) 9 mg PO BEDTIME [facility] Last Admin: 02/13/22 00:05 Dose: 9 mg Mirtazapine (Mirtazapine 15 Mg Tablet) 15 mg PO BEDTIME [facility] Last Admin: 02/12/22 22:15 Dose: 15 mg Olanzapine (Olanzapine 2.5 Mg Tablet) 2.5 mg PO BEDTIME [facility] Last Admin: 02/12/22 22:15 Dose: 2.5 mg Tamsulosin HCl (Tamsulosin Hcl 0.4 Mg Capsule) 0.4 mg PO BEDTIME [facility] Last Admin: 02/12/22 22:15 Dose: 0.4 mg Trazodone HCl (Trazodone Hcl 50 Mg Tablet) 50 mg PO BEDTIME PRN PRN Reason: Insomnia Last Admin: 02/13/22 00:11 Dose: 50 mg Allergies Allergies Allergy/AdvReac Type Severity Reaction Status Date / Time No Known Allergies Allergy Verified 02/05/22 19:19 Assessment & Plan Assessment & Plan (1) Major depressive disorder: Status: Acute Code(s): F32.9 - Major depressive disorder, single episode, unspecified (2) Suicide attempt: Status: Acute Code(s): T14.91XA - Suicide attempt, initial encounter (3) Aspiration pneumonia: Status: Acute Code(s): J69.0 - Pneumonitis due to inhalation of food and vomit (4) Seizure disorder: Status: Acute Code(s): G40.909 - Epilepsy, unspecified, not intractable, without status epilepticus (5) BPH (benign prostatic hyperplasia): Qualifiers: Lower urinary tract symptom presence: symptoms present Lower urinary tract symptom detail: weak urinary stream Qualified Code(s): N40.1 - Benign prostatic hyperplasia with lower urinary tract symptoms; R39.12 - Poor urinary stream Status: Acute Code(s): N40.0 - Benign prostatic hyperplasia without lower urinary tract symptoms (6) 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 The patient carries a diagnosis of depression and he was previously admitted for years ago at [facility]. Plan 1. Gather collateral information. 2. Continue Remeron 15 mg p.o. q.h.s. to target depression and anxiety. 3. Start a low dose of Zyprexa 2.5 mg p.o. q.h.s. to target psychotic symptoms. Zyprexa was discontinued on February 13 4. Continue with medcal workout. 5. 1:1 discontinue today 6. Occupational therapist did a [place] today and he scored 22/30 and his Gilles test is 3.6. I spent __20____ minutes with the patient and/or on the patient floor today, greater than?50% of which was spent counseling/coordinating care. Reason for contiued inpatient stay Substantial Risk for: inability to function, rapid decompensation and med/psych decompensation
[2022-02-13 18:00] VITALS: BP 107/58; PULSE 76; RESP 20; TEMP 36.3; O2SAT 93
[2022-02-13] MEDS: Mirtazapine 15 MG TABLET PO (21:17)
[2022-02-13] MEDS: Tamsulosin HCL 0.4 MG CAPSULE PO (21:18)
[2022-02-13] MEDS: Aspirin Enteric Coated 81 MG TABLET.DR PO (21:20)
[2022-02-14] MEDS: traZODone HCL 50 MG TABLET PO (00:16)
[2022-02-14] MEDS: Amoxicillin/Potassium Clav 875 MG TABLET PO ×2 (05:26→17:02)
[2022-02-14 06:00] VITALS: BP 100/60; PULSE 85; RESP 19; TEMP 36.4; O2SAT 93
--- NOTE | 2022-02-14 08:16 | P.PNPSI_ITS ---
Subjective Subjective Date of Service: 02/14/22 Reason For Visit: Suicidal Attempt Subjective Notes: Conditional Voluntary Interim History: The nursing staff reported that he was seen watching TV up too late. He has been isolative mostly in his room. He reports poor sleep but the staff noticed that he slept well last night. Yesterday we discontinue Zyprexa since he was not psychotic, that is probably he could not sleep well last night. The occupational therapist reported that he has expressed negative self talk. The social services director reported that his knee if he will come next Friday for a family meeting and they want him to go back home. On interview, the patient reports feeling depressed and tired but no active suicidal ideation. He agreed to change his Remeron. Mental Status Exam Mental Status Exam Patient Appearance: Well Grooomed Patient Orientation: Person and Situation Level of Consciousness: Awake Patient Behavior: Cooperative Mood Description: Calm Affect Description: Constricted Patient Cognition Impaired: Yes Ability to Follow Directions: Good Speech Pattern: Clear Hallucinations: None Delusions: Not Present Thought Process: Distracted and Slowed Thinking Thought Content: positive for [place] and positive for Circumstantial Judgement: Fair Diagnostics Vital Signs (24Hr): Vital Signs - 24 hr 02/13/22 18:00 Temperature 97.4 F Pulse Rate 76 Respiratory Rate 20 Blood Pressure 107/58 L Pulse Oximetry 93 Oxygen Delivery Method Room Air Labs Results: 02/12/22 08:00 Labs: Laboratory Results - last 48 hr 02/12/22 08:00 Sodium 134 L Potassium 3.7 Chloride 103 Carbon Dioxide 25 Anion Gap 10 L BUN 19 H Creatinine 0.64 Estim Creat Clear Calc TNP Estimated GFR > 60 Fasting Glucose 92 Calcium 7.9 L D Total Bilirubin 0.5 AST 59 H ALT 70 H Alkaline Phosphatase 53 Total Protein 5.2 L Albumin 2.9 L Triglycerides 66 Cholesterol 124 LDL Cholesterol, Calc 81 HDL Cholesterol 30 Medications Medications Current Medications Acetaminophen (Acetaminophen 325 Mg Tablet) 650 mg PO Q6H PRN PRN Reason: Headache/Pain Mild Scale (1-3) Last Admin: 02/12/22 22:22 Dose: 650 mg Al Hydroxide/Mg Hydroxide (Magnesium Hydrox/Alum Hydrox 30 Ml Oral.Susp) 30 ml PO Q6H PRN PRN Reason: Heartburn/Nausea Amoxicillin/Clavulanate Potassium (Amoxicillin/Potassium Clav 875 Mg Tablet) 875 mg PO Q12H [facility] Last Admin: 02/14/22 05:26 Dose: 875 mg Aspirin (Aspirin Enteric Coated 81 Mg Tablet.Dr) 81 mg PO BEDTIME [facility] Last Admin: 02/13/22 21:20 Dose: 81 mg Hydroxyzine HCl (Hydroxyzine Hcl 25 Mg Tablet) 25 mg PO Q6H PRN PRN Reason: Anxiety Last Admin: 02/13/22 21:18 Dose: 25 mg Ipratropium [place] (Ipratropium [place] 1 Puff/17 Mcg Inhaler) 2 puff INHALE RQ4H WHILE AWAKE PRN PRN Reason: Shortness of Breath Levetiracetam (Levetiracetam 500 Mg Tablet) 500 mg PO BID [facility] Last Admin: 02/13/22 21:20 Dose: 500 mg Magnesium Hydroxide (Milk Of Magnesia 30 Ml Oral.Susp) 30 ml PO DAILY PRN PRN Reason: Constipation Melatonin (Melatonin 3 Mg Tablet) 9 mg PO BEDTIME [facility] Last Admin: 02/13/22 21:18 Dose: 9 mg Mirtazapine (Mirtazapine 15 Mg Tablet) 15 mg PO BEDTIME [facility] Last Admin: 02/13/22 21:17 Dose: 15 mg Tamsulosin HCl (Tamsulosin Hcl 0.4 Mg Capsule) 0.4 mg PO BEDTIME [facility] Last Admin: 02/13/22 21:18 Dose: 0.4 mg Trazodone HCl (Trazodone Hcl 50 Mg Tablet) 50 mg PO BEDTIME PRN PRN Reason: Insomnia Last Admin: 02/14/22 00:16 Dose: 50 mg Allergies Allergies Allergy/AdvReac Type Severity Reaction Status Date / Time No Known Allergies Allergy Verified 02/05/22 19:19 Assessment & Plan Assessment & Plan (1) Major depressive disorder: Status: Acute Code(s): F32.9 - Major depressive disorder, single episode, unspecified (2) Suicide attempt: Status: Acute Code(s): T14.91XA - Suicide attempt, initial encounter (3) Aspiration pneumonia: Status: Acute Code(s): J69.0 - Pneumonitis due to inhalation of food and vomit (4) Seizure disorder: Status: Acute Code(s): G40.909 - Epilepsy, unspecified, not intractable, without status epilepticus (5) BPH (benign prostatic hyperplasia): Qualifiers: Lower urinary tract symptom detail: weak urinary stream Lower urinary tract symptom presence: symptoms present Qualified Code(s): N40.1 - Benign prostatic hyperplasia with lower urinary tract symptoms; R39.12 - Poor urinary stream Status: Acute Code(s): N40.0 - Benign prostatic hyperplasia without lower urinary tract symptoms (6) COPD (chronic obstructive pulmonary disease): 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 The patient carries a diagnosis of depression and he was previously admitted for years ago at [facility]. Plan 1. Gather collateral information. 2. Continue Remeron 15 mg p.o. q.h.s. to target depression and anxiety. On February 14 we increase Remeron up to 30 mg p.o. q.h.s. 3. Start a low dose of Zyprexa 2.5 mg p.o. q.h.s. to target psychotic symptoms. Zyprexa was discontinued on February 13 4. Continue with medcal workout. 5. 1:1 discontinue on February 13 6. Occupational therapist did a [place] today and he scored 22/30 and his Gilles test is 3.6. I spent ___20___ minutes with the patient and/or on the patient floor today, greater than?50% of which was spent counseling/coordinating care. Reason for contiued inpatient stay Substantial Risk for: inability to function, rapid decompensation and med/psych decompensation
[2022-02-14 09:43] VITALS: PULSE 98; O2SAT 90
[2022-02-14] MEDS: levETIRAcetam 500 MG TABLET PO ×2 (10:06→21:54)
[2022-02-14 20:00] VITALS: BP 86/51; PULSE 68; RESP 12; TEMP 36.9; O2SAT 94
[2022-02-14] MEDS: Aspirin Enteric Coated 81 MG TABLET.DR PO (21:53)
[2022-02-14] MEDS: Mirtazapine 30 MG TABLET PO (21:54)
[2022-02-14] MEDS: Tamsulosin HCL 0.4 MG CAPSULE PO (21:54)
[2022-02-14] MEDS: hydrOXYzine HCL 25 MG TABLET PO (21:54)
[2022-02-14] MEDS: Melatonin 3 MG TABLET 9 MG PO (21:55)
[2022-02-14 22:00] VITALS: BP 87/52; PULSE 66; RESP 14
[2022-02-15] MEDS: Amoxicillin/Potassium Clav 875 MG TABLET PO ×2 (06:37→17:19)
[2022-02-15 06:52] VITALS: BP 92/53; PULSE 66
[2022-02-15 08:41] VITALS: BMI 21.2
[2022-02-15 08:54] VITALS: BP 120/74; PULSE 77; RESP 15; TEMP 36.2; O2SAT 96
[2022-02-15] MEDS: levETIRAcetam 500 MG TABLET PO ×2 (08:59→19:49)
--- NOTE | 2022-02-15 11:36 | HO.PSYCHPN ---
Subjective Subjective Date of Service: 02/15/22 Reason For Visit: Suicidal Attempt Subjective Notes: Conditional Voluntary Interim History: The nursing staff reported the patient slept well last night but his blood pressure went down in the morning. He has been isolative. Also we have noticed that the patient does not get along with his roommate. He has been seen eating well. The social work msw reported there was a meeting with his nephew on Friday for discharge planning and services. The occupational therapy reported that she is attending to groups. On interview the patient denies new symptoms, besides insomnia, even though that yesterday we increased Remeron up to 30 mg to target depression and insomnia and it seems that he is tolerating well. We discussed options for insomnia and agreed to start a low dose of Seroquel at hs. Mental Status Exam Mental Status Exam Patient Appearance: Well Grooomed Patient Orientation: Person and Situation Level of Consciousness: Awake and Appropriate Patient Behavior: Cooperative Mood Description: Calm Affect Description: Constricted Patient Cognition Impaired: Yes Ability to Follow Directions: Good Speech Pattern: Clear Hallucinations: None Delusions: Not Present Thought Process: Distracted Thought Content: positive for [place] and positive for Circumstantial Judgement: Fair Diagnostics Vital Signs (24Hr): Vital Signs - 24 hr 02/14/22 20:00 02/14/22 22:00 02/15/22 06:52 Temperature 98.5 F Pulse Rate 68 66 66 Respiratory Rate 12 14 Blood Pressure 86/51 L 87/52 L 92/53 L Pulse Oximetry 94 Oxygen Delivery Method Room Air 02/15/22 08:54 Temperature 97.2 F Pulse Rate 77 Respiratory Rate 15 Blood Pressure 120/74 Pulse Oximetry 96 Oxygen Delivery Method Room Air BMI result Body Mass Index 21.2 Labs Results: 02/12/22 08:00 Medications Medications Current Medications Acetaminophen (Acetaminophen 325 Mg Tablet) 650 mg PO Q6H PRN PRN Reason: Headache/Pain Mild Scale (1-3) Last Admin: 02/12/22 22:22 Dose: 650 mg Al Hydroxide/Mg Hydroxide (Magnesium Hydrox/Alum Hydrox 30 Ml Oral.Susp) 30 ml PO Q6H PRN PRN Reason: Heartburn/Nausea Amoxicillin/Clavulanate Potassium (Amoxicillin/Potassium Clav 875 Mg Tablet) 875 mg PO Q12H [facility] Last Admin: 02/15/22 06:37 Dose: 875 mg Aspirin (Aspirin Enteric Coated 81 Mg Tablet.Dr) 81 mg PO BEDTIME [facility] Last Admin: 02/14/22 21:53 Dose: 81 mg Hydroxyzine HCl (Hydroxyzine Hcl 25 Mg Tablet) 25 mg PO Q6H PRN PRN Reason: Anxiety Last Admin: 02/14/22 21:54 Dose: 25 mg Ipratropium [place] (Ipratropium [place] 1 Puff/17 Mcg Inhaler) 2 puff INHALE RQ4H WHILE AWAKE PRN PRN Reason: Shortness of Breath Levetiracetam (Levetiracetam 500 Mg Tablet) 500 mg PO BID [facility] Last Admin: 02/15/22 08:59 Dose: 500 mg Magnesium Hydroxide (Milk Of Magnesia 30 Ml Oral.Susp) 30 ml PO DAILY PRN PRN Reason: Constipation Melatonin (Melatonin 3 Mg Tablet) 9 mg PO BEDTIME [facility] Last Admin: 02/14/22 21:55 Dose: 9 mg Mirtazapine (Mirtazapine 30 Mg Tablet) 30 mg PO BEDTIME [facility] Last Admin: 02/14/22 21:54 Dose: 30 mg Tamsulosin HCl (Tamsulosin Hcl 0.4 Mg Capsule) 0.4 mg PO BEDTIME [facility] Last Admin: 02/14/22 21:54 Dose: 0.4 mg Trazodone HCl (Trazodone Hcl 50 Mg Tablet) 50 mg PO BEDTIME PRN PRN Reason: Insomnia Last Admin: 02/14/22 00:16 Dose: 50 mg Allergies Allergies Allergy/AdvReac Type Severity Reaction Status Date / Time No Known Allergies Allergy Verified 02/05/22 19:19 Assessment & Plan Assessment & Plan (1) Major depressive disorder: Status: Acute Code(s): F32.9 - Major depressive disorder, single episode, unspecified (2) Suicide attempt: Status: Acute Code(s): T14.91XA - Suicide attempt, initial encounter (3) Aspiration pneumonia: Status: Acute Code(s): J69.0 - Pneumonitis due to inhalation of food and vomit (4) Seizure disorder: Status: Acute Code(s): G40.909 - Epilepsy, unspecified, not intractable, without status epilepticus (5) BPH (benign prostatic hyperplasia): Qualifiers: Lower urinary tract symptom detail: weak urinary stream Lower urinary tract symptom presence: symptoms present Qualified Code(s): N40.1 - Benign prostatic hyperplasia with lower urinary tract symptoms; R39.12 - Poor urinary stream Status: Acute Code(s): N40.0 - Benign prostatic hyperplasia without lower urinary tract symptoms (6) 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 The patient carries a diagnosis of depression and he was previously admitted for years ago at [facility]. Plan 1. Gather collateral information. 2. Continue Remeron 15 mg p.o. q.h.s. to target depression and anxiety. On February 14 we increase Remeron up to 30 mg p.o. q.h.s. 3. Start a low dose of Zyprexa 2.5 mg p.o. q.h.s. to target psychotic symptoms. Zyprexa was discontinued on February 13 4. Continue with medcal workout. 5. 1:1 discontinue on February 13 6. Occupational therapist did a [place] today and he scored 22/30 and his Gilles test is 3.6. 7. Seroquel 50 mg po qhs started on Feb 15. I spent __20____ minutes with the patient and/or on the patient floor today, greater than?50% of which was spent counseling/coordinating care. Reason for contiued inpatient stay Substantial Risk for: inability to function, rapid decompensation and med/psych decompensation
[2022-02-15 18:00] VITALS: BP 91/55; PULSE 68; RESP 14; TEMP 36.7; O2SAT 94
[2022-02-15] MEDS: Melatonin 3 MG TABLET 9 MG PO (19:49)
[2022-02-15] MEDS: Aspirin Enteric Coated 81 MG TABLET.DR PO (19:49)
[2022-02-15] MEDS: QUEtiapine Fumarate 25 MG TABLET PO (19:49)
[2022-02-15] MEDS: Mirtazapine 30 MG TABLET PO (19:49)
[2022-02-15] MEDS: Tamsulosin HCL 0.4 MG CAPSULE PO (19:49)
--- NOTE | 2022-02-16 01:46 | P.PNPSI_ITS ---
Subjective Subjective Date of Service: 02/16/22 Reason For Visit: Suicidal Attempt Interim History: Spoke with pt and team. Pt has complained of mild urinary incontinence i.e. says he started dribbling, started 1-2 days ago. Pt is worried about this. Continues to report perceptual disturbance i.e. says there is someone in my thoughts, sees their face when I go to lay down, thinks they are trying to hurt him, im scared. Pt doesnt think he is asleep. Says it happened twice today. Anxiety is alright. Says he is not sleeping that much, sometimes not at all it seems. Denies benefit on trazodone. Mental Status Exam Mental Status Exam Narrative: Patient Appearance: Well Grooomed Patient Orientation: Person and Situation Level of Consciousness: Awake and Appropriate Patient Behavior: Cooperative Mood Description: Calm Affect Description: Constricted Patient Cognition Impaired: Yes Ability to Follow Directions: Good Speech Pattern: Clear Hallucinations: None Delusions: Not Present Thought Process: Distracted Thought Content: positive for [place] and positive for Circumstantial Judgement: Fair Diagnostics Vital Signs (24Hr): Vital Signs - 24 hr 02/15/22 06:52 02/15/22 08:54 02/15/22 18:00 Temperature 97.2 F 98.1 F Pulse Rate 66 77 68 Respiratory Rate 15 14 Blood Pressure 92/53 L 120/74 91/55 L Pulse Oximetry 96 94 Oxygen Delivery Method Room Air Room Air BMI result Body Mass Index 21.2 Labs Results: 02/12/22 08:00 Medications Medications Current Medications Acetaminophen (Acetaminophen 325 Mg Tablet) 650 mg PO Q6H PRN PRN Reason: Headache/Pain Mild Scale (1-3) Last Admin: 02/12/22 22:22 Dose: 650 mg Al Hydroxide/Mg Hydroxide (Magnesium Hydrox/Alum Hydrox 30 Ml Oral.Susp) 30 ml PO Q6H PRN PRN Reason: Heartburn/Nausea Amoxicillin/Clavulanate Potassium (Amoxicillin/Potassium Clav 875 Mg Tablet) 875 mg PO Q12H [facility] Last Admin: 02/15/22 17:19 Dose: 875 mg Aspirin (Aspirin Enteric Coated 81 Mg Tablet.Dr) 81 mg PO BEDTIME [facility] Last Admin: 02/15/22 19:49 Dose: 81 mg Hydroxyzine HCl (Hydroxyzine Hcl 25 Mg Tablet) 25 mg PO Q6H PRN PRN Reason: Anxiety Last Admin: 02/14/22 21:54 Dose: 25 mg Ipratropium [place] (Ipratropium [place] 1 Puff/17 Mcg Inhaler) 2 puff INHALE RQ4H WHILE AWAKE PRN PRN Reason: Shortness of Breath Levetiracetam (Levetiracetam 500 Mg Tablet) 500 mg PO BID [facility] Last Admin: 02/15/22 19:49 Dose: 500 mg Magnesium Hydroxide (Milk Of Magnesia 30 Ml Oral.Susp) 30 ml PO DAILY PRN PRN Reason: Constipation Melatonin (Melatonin 3 Mg Tablet) 9 mg PO BEDTIME [facility] Last Admin: 02/15/22 19:49 Dose: 9 mg Mirtazapine (Mirtazapine 30 Mg Tablet) 30 mg PO BEDTIME [facility] Last Admin: 02/15/22 19:49 Dose: 30 mg Quetiapine Fumarate (Quetiapine Fumarate 25 Mg Tablet) 25 mg PO BEDTIME [facility] Last Admin: 02/15/22 19:49 Dose: 25 mg Tamsulosin HCl (Tamsulosin Hcl 0.4 Mg Capsule) 0.4 mg PO BEDTIME [facility] Last Admin: 02/15/22 19:49 Dose: 0.4 mg Trazodone HCl (Trazodone Hcl 50 Mg Tablet) 50 mg PO BEDTIME PRN PRN Reason: Insomnia Last Admin: 02/14/22 00:16 Dose: 50 mg Allergies Allergies Allergy/AdvReac Type Severity Reaction Status Date / Time No Known Allergies Allergy Verified 02/05/22 19:19 Assessment & Plan Assessment & Plan (1) Major depressive disorder: Status: Acute Code(s): F32.9 - Major depressive disorder, single episode, unspecified (2) Suicide attempt: Status: Acute Code(s): T14.91XA - Suicide attempt, initial encounter (3) Aspiration pneumonia: Status: Acute Code(s): J69.0 - Pneumonitis due to inhalation of food and vomit (4) Seizure disorder: Status: Acute Code(s): G40.909 - Epilepsy, unspecified, not intractable, without status epilepticus (5) BPH (benign prostatic hyperplasia): Qualifiers: Lower urinary tract symptom detail: weak urinary stream Lower urinary tract symptom presence: symptoms present Qualified Code(s): N40.1 - Benign prostatic hyperplasia with lower urinary tract symptoms; R39.12 - Poor urinary stream Status: Acute Code(s): N40.0 - Benign prostatic hyperplasia without lower urinary tract symptoms (6) 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 The patient carries a diagnosis of depression and he was previously admitted for years ago at [facility]. Plan 1. Gather collateral information. 2. Continue Remeron 15 mg p.o. q.h.s. to target depression and anxiety. On February 14 we increase Remeron up to 30 mg p.o. q.h.s. 3. Start a low dose of Zyprexa 2.5 mg p.o. q.h.s. to target psychotic symptoms. Zyprexa was discontinued on February 13 4. Continue with medcal workout. 5. 1:1 discontinue on February 13 6. Occupational therapist did a [place] today and he scored 22/30 and his Gilles test is 3.6. 7. Seroquel 50 mg po qhs started on Feb 15. 02/16: order UA for urinary incontinence, seroquel incr did not go through, will increase to 50 mg HS as planned I spent minutes with the patient and/or on the patient floor today, greater than?50% of which was spent counseling/coordinating care. Patient educated on: medication risk/benefits Reason for contiued inpatient stay Substantial Risk for: med/psych decompensation
[2022-02-16 06:00] VITALS: BP 111/56; PULSE 92; RESP 16; TEMP 36.3; O2SAT 92
[2022-02-16] MEDS: Amoxicillin/Potassium Clav 875 MG TABLET PO ×2 (06:24→17:54)
[2022-02-16] MEDS: levETIRAcetam 500 MG TABLET PO ×2 (09:21→20:16)
[2022-02-16 18:00] VITALS: BP 115/58; PULSE 75; RESP 16; TEMP 36.2; O2SAT 94
[2022-02-16] MEDS: Melatonin 3 MG TABLET 9 MG PO (20:15)
[2022-02-16] MEDS: QUEtiapine Fumarate 50 MG TABLET PO (20:16)
[2022-02-16] MEDS: Mirtazapine 30 MG TABLET PO (20:17)
[2022-02-16] MEDS: Tamsulosin HCL 0.4 MG CAPSULE PO (20:17)
[2022-02-16] MEDS: Aspirin Enteric Coated 81 MG TABLET.DR PO (20:17)
[2022-02-16 23:42] LABS: Appearance Urine Clear; Color Urine Yellow; Glucose Urine UA Negative (Negative); Leukocyte Esterase Urine Negative (Negative); Nitrite Urine Negative (Negative); Specific Gravity - Urine 1.025 (1.005-1.025); Urine Blood Negative (Negative); Urine Ketones Negative (Negative); Urine Protein Trace mg/dL (Neg-Trace)
[2022-02-17] MEDS: Amoxicillin/Potassium Clav 875 MG TABLET PO ×2 (05:34→17:35)
[2022-02-17 08:15] VITALS: BP 84/54; PULSE 94; RESP 16; TEMP 36.5; O2SAT 92
[2022-02-17] MEDS: levETIRAcetam 500 MG TABLET PO ×2 (08:26→21:22)
[2022-02-17 08:35] VITALS: BP 96/54; PULSE 84
--- NOTE | 2022-02-17 15:56 | HO.PSYCHPN ---
Subjective Subjective Date of Service: 02/17/22 Reason For Visit: Suicidal Attempt Interim History: Spoke with team and pt. UA negative. Says today im not dribbling. RN encouraged hydration because pt wanted to restrict due to fear of urinary incontinence. Pt says Im not sure if im hallucinating or sleeping, i dont know if im sleeping. But then says its hard to explain, I must be getting some rest because I can function. Thinks sleep has improved on increased seroquel dose. Mental Status Exam Mental Status Exam Narrative: Patient Appearance: Well Grooomed Patient Orientation: Person and Situation Level of Consciousness: Awake and Appropriate Patient Behavior: Cooperative Mood Description: Calm Affect Description: Constricted Patient Cognition Impaired: Yes Ability to Follow Directions: Good Speech Pattern: Clear Hallucinations: None Delusions: Not Present Thought Process: Distracted Thought Content: positive for [place] and positive for Circumstantial Judgement: Fair Diagnostics Vital Signs (24Hr): Vital Signs - 24 hr 02/16/22 18:00 02/17/22 08:15 02/17/22 08:35 Temperature 97.1 F 97.7 F Pulse Rate 75 94 84 Respiratory Rate 16 16 Blood Pressure 115/58 L 84/54 L 96/54 L Pulse Oximetry 94 92 Oxygen Delivery Method Room Air Room Air BMI result Body Mass Index 21.2 Labs Results: 02/12/22 08:00 Labs: Laboratory Results - last 48 hr 02/16/22 23:20 Urine Color Yellow Urine Appearance Clear Urine pH 6.0 Ur Specific [place] 1.025 Urine Protein Trace Urine Glucose (UA) Negative Urine Ketones Negative Urine Blood Negative Urine Nitrite Negative Ur Leukocyte Esterase Negative Medications Medications Current Medications Acetaminophen (Acetaminophen 325 Mg Tablet) 650 mg PO Q6H PRN PRN Reason: Headache/Pain Mild Scale (1-3) Last Admin: 02/12/22 22:22 Dose: 650 mg Al Hydroxide/Mg Hydroxide (Magnesium Hydrox/Alum Hydrox 30 Ml Oral.Susp) 30 ml PO Q6H PRN PRN Reason: Heartburn/Nausea Amoxicillin/Clavulanate Potassium (Amoxicillin/Potassium Clav 875 Mg Tablet) 875 mg PO Q12H [facility] Last Admin: 02/17/22 05:34 Dose: 875 mg Aspirin (Aspirin Enteric Coated 81 Mg Tablet.Dr) 81 mg PO BEDTIME [facility] Last Admin: 02/16/22 20:17 Dose: 81 mg Hydroxyzine HCl (Hydroxyzine Hcl 25 Mg Tablet) 25 mg PO Q6H PRN PRN Reason: Anxiety Last Admin: 02/14/22 21:54 Dose: 25 mg Ipratropium [place] (Ipratropium [place] 1 Puff/17 Mcg Inhaler) 2 puff INHALE RQ4H WHILE AWAKE PRN PRN Reason: Shortness of Breath Levetiracetam (Levetiracetam 500 Mg Tablet) 500 mg PO BID [facility] Last Admin: 02/17/22 08:26 Dose: 500 mg Magnesium Hydroxide (Milk Of Magnesia 30 Ml Oral.Susp) 30 ml PO DAILY PRN PRN Reason: Constipation Melatonin (Melatonin 3 Mg Tablet) 9 mg PO BEDTIME [facility] Last Admin: 02/16/22 20:15 Dose: 9 mg Mirtazapine (Mirtazapine 30 Mg Tablet) 30 mg PO BEDTIME [facility] Last Admin: 02/16/22 20:17 Dose: 30 mg Quetiapine Fumarate (Quetiapine Fumarate 50 Mg Tablet) 50 mg PO BEDTIME [facility] Last Admin: 02/16/22 20:16 Dose: 50 mg Tamsulosin HCl (Tamsulosin Hcl 0.4 Mg Capsule) 0.4 mg PO BEDTIME [facility] Last Admin: 02/16/22 20:17 Dose: 0.4 mg Allergies Allergies Allergy/AdvReac Type Severity Reaction Status Date / Time No Known Allergies Allergy Verified 02/05/22 19:19 Assessment & Plan Assessment & Plan (1) Major depressive disorder: Status: Acute Code(s): F32.9 - Major depressive disorder, single episode, unspecified (2) Suicide attempt: Status: Acute Code(s): T14.91XA - Suicide attempt, initial encounter (3) Aspiration pneumonia: Status: Acute Code(s): J69.0 - Pneumonitis due to inhalation of food and vomit (4) Seizure disorder: Status: Acute Code(s): G40.909 - Epilepsy, unspecified, not intractable, without status epilepticus (5) BPH (benign prostatic hyperplasia): Qualifiers: Lower urinary tract symptom detail: weak urinary stream Lower urinary tract symptom presence: symptoms present Qualified Code(s): N40.1 - Benign prostatic hyperplasia with lower urinary tract symptoms; R39.12 - Poor urinary stream Status: Acute Code(s): N40.0 - Benign prostatic hyperplasia without lower urinary tract symptoms (6) 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 The patient carries a diagnosis of depression and he was previously admitted for years ago at [facility]. Plan 1. Gather collateral information. 2. Continue Remeron 15 mg p.o. q.h.s. to target depression and anxiety. On February 14 we increase Remeron up to 30 mg p.o. q.h.s. 3. Start a low dose of Zyprexa 2.5 mg p.o. q.h.s. to target psychotic symptoms. Zyprexa was discontinued on February 13 4. Continue with medcal workout. 5. 1:1 discontinue on February 13 6. Occupational therapist did a [place] today and he scored 22/30 and his Gilles test is 3.6. 7. Seroquel 50 mg po qhs started on Feb 15. 02/16: order UA for urinary incontinence, seroquel incr did not go through, will increase to 50 mg HS 02/17: continue meds, sleep improved I spent minutes with the patient and/or on the patient floor today, greater than?50% of which was spent counseling/coordinating care. Reason for contiued inpatient stay Substantial Risk for: med/psych decompensation
[2022-02-17 18:00] VITALS: BP 107/58; PULSE 76; RESP 18; TEMP 36.3; O2SAT 94
[2022-02-17] MEDS: QUEtiapine Fumarate 50 MG TABLET PO (21:22)
[2022-02-17] MEDS: Aspirin Enteric Coated 81 MG TABLET.DR PO (21:22)
[2022-02-17] MEDS: Melatonin 3 MG TABLET 9 MG PO (21:22)
[2022-02-17] MEDS: Mirtazapine 30 MG TABLET PO (21:22)
[2022-02-17] MEDS: Tamsulosin HCL 0.4 MG CAPSULE PO (21:23)
[2022-02-18] MEDS: Amoxicillin/Potassium Clav 875 MG TABLET PO ×2 (05:58→17:57)
[2022-02-18 06:00] VITALS: BP 100/62; PULSE 78; TEMP 36.7; O2SAT 95
[2022-02-18] MEDS: levETIRAcetam 500 MG TABLET PO ×2 (08:09→20:33)
--- NOTE | 2022-02-18 11:45 | HO.PSYCHPN ---
Subjective Subjective Date of Service: 02/18/22 Reason For Visit: Suicidal Attempt Subjective Notes: Conditional Voluntary Interim History: The nursing staff reported the patient had been visible in the unit. Nursing staff also reported that he has been compliant with his antibiotics and medications. Today we had a family meeting with his nephew and he reported that he can not help him 100% since he works full-time. He is independent at baseline but on the meeting it was clear that he would need more ancillary services.. On interview the patient denies new symptoms he reports that he cannot sleep well at night due to his roommate who snores. We discussed options and he agreed to keep on the same medications. Mental Status Exam Mental Status Exam Patient Appearance: Well Grooomed and Appropriate Patient Orientation: Person and Situation Level of Consciousness: Awake and Appropriate Patient Behavior: Cooperative Mood Description: Withdrawn and Depressed Affect Description: Constricted Patient Cognition Impaired: Yes Ability to Follow Directions: Good Speech Pattern: Clear Hallucinations: None Delusions: Not Present Thought Content: positive for [place] Judgement: Fair Diagnostics Vital Signs (24Hr): Vital Signs - 24 hr 02/17/22 18:00 Temperature 97.4 F Pulse Rate 76 Respiratory Rate 18 Blood Pressure 107/58 L Pulse Oximetry 94 Oxygen Delivery Method Room Air BMI result Body Mass Index 21.2 Labs Results: 02/12/22 08:00 Labs: Laboratory Results - last 48 hr 02/16/22 23:20 Urine Color Yellow Urine Appearance Clear Urine pH 6.0 Ur Specific [place] 1.025 Urine Protein Trace Urine Glucose (UA) Negative Urine Ketones Negative Urine Blood Negative Urine Nitrite Negative Ur Leukocyte Esterase Negative Medications Medications Current Medications Acetaminophen (Acetaminophen 325 Mg Tablet) 650 mg PO Q6H PRN PRN Reason: Headache/Pain Mild Scale (1-3) Last Admin: 02/12/22 22:22 Dose: 650 mg Al Hydroxide/Mg Hydroxide (Magnesium Hydrox/Alum Hydrox 30 Ml Oral.Susp) 30 ml PO Q6H PRN PRN Reason: Heartburn/Nausea Amoxicillin/Clavulanate Potassium (Amoxicillin/Potassium Clav 875 Mg Tablet) 875 mg PO Q12H [facility] Last Admin: 02/18/22 05:58 Dose: 875 mg Aspirin (Aspirin Enteric Coated 81 Mg Tablet.) 81 mg PO BEDTIME [facility] Last Admin: 02/17/22 21:22 Dose: 81 mg Hydroxyzine HCl (Hydroxyzine Hcl 25 Mg Tablet) 25 mg PO Q6H PRN PRN Reason: Anxiety Last Admin: 02/14/22 21:54 Dose: 25 mg Ipratropium [place] (Ipratropium [place] 1 Puff/17 Mcg Inhaler) 2 puff INHALE RQ4H WHILE AWAKE PRN PRN Reason: Shortness of Breath Levetiracetam (Levetiracetam 500 Mg Tablet) 500 mg PO BID [facility] Last Admin: 02/18/22 08:09 Dose: 500 mg Magnesium Hydroxide (Milk Of Magnesia 30 Ml Oral.Susp) 30 ml PO DAILY PRN PRN Reason: Constipation Melatonin (Melatonin 3 Mg Tablet) 9 mg PO BEDTIME [facility] Last Admin: 02/17/22 21:22 Dose: 9 mg Mirtazapine (Mirtazapine 30 Mg Tablet) 30 mg PO BEDTIME [facility] Last Admin: 02/17/22 21:22 Dose: 30 mg Quetiapine Fumarate (Quetiapine Fumarate 50 Mg Tablet) 50 mg PO BEDTIME [facility] Last Admin: 02/17/22 21:22 Dose: 50 mg Tamsulosin HCl (Tamsulosin Hcl 0.4 Mg Capsule) 0.4 mg PO BEDTIME [facility] Last Admin: 02/17/22 21:23 Dose: 0.4 mg Allergies Allergies Allergy/AdvReac Type Severity Reaction Status Date / Time No Known Allergies Allergy Verified 02/05/22 19:19 Assessment & Plan Assessment & Plan (1) Major depressive disorder: Status: Acute Code(s): F32.9 - Major depressive disorder, single episode, unspecified (2) Suicide attempt: Status: Acute Code(s): T14.91XA - Suicide attempt, initial encounter (3) Aspiration pneumonia: Status: Acute Code(s): J69.0 - Pneumonitis due to inhalation of food and vomit (4) Seizure disorder: Status: Acute Code(s): G40.909 - Epilepsy, unspecified, not intractable, without status epilepticus (5) BPH (benign prostatic hyperplasia): Qualifiers: Lower urinary tract symptom detail: weak urinary stream Lower urinary tract symptom presence: symptoms present Qualified Code(s): N40.1 - Benign prostatic hyperplasia with lower urinary tract symptoms; R39.12 - Poor urinary stream Status: Acute Code(s): N40.0 - Benign prostatic hyperplasia without lower urinary tract symptoms (6) 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 The patient carries a diagnosis of depression and he was previously admitted for years ago at [facility]. Plan 1. Gather collateral information. 2. Continue Remeron 15 mg p.o. q.h.s. to target depression and anxiety. On February 14 we increase Remeron up to 30 mg p.o. q.h.s. 3. Start a low dose of Zyprexa 2.5 mg p.o. q.h.s. to target psychotic symptoms. Zyprexa was discontinued on February 13 since there is no psychotic symptoms. 4. Continue with medcal workout. 5. 1:1 discontinue on February 13 6. Occupational therapist did a [place] today and he scored 22/30 and his Gilles test is 3.6. 7. Seroquel 50 mg po qhs started on Feb 15. 8. Start discharge planning. I spent __20____ minutes with the patient and/or on the patient floor today, greater than?50% of which was spent counseling/coordinating care. Reason for contiued inpatient stay Substantial Risk for: inability to function, rapid decompensation and med/psych decompensation
[2022-02-18 18:00] VITALS: BP 101/61; PULSE 83; RESP 12; TEMP 36.8; O2SAT 93
[2022-02-18] MEDS: Tamsulosin HCL 0.4 MG CAPSULE PO (20:32)
[2022-02-18] MEDS: Aspirin Enteric Coated 81 MG TABLET.DR PO (20:32)
[2022-02-18] MEDS: Melatonin 3 MG TABLET 9 MG PO (20:33)
[2022-02-18] MEDS: Mirtazapine 30 MG TABLET PO (20:33)
[2022-02-18] MEDS: QUEtiapine Fumarate 50 MG TABLET PO (20:33)
[2022-02-19] MEDS: Amoxicillin/Potassium Clav 875 MG TABLET PO (06:07)
--- NOTE | 2022-02-19 08:18 | PM.PSYDC ---
DS: Providers Provider Date of Service: 02/19/22 Date of admission: 02/11/22 13:59 Date of discharge: 02/19/22 Primary care physician: Unknown Physician DS: Diagnosis Discharge Diagnosis (1) Major depressive disorder: Status: Acute (2) Suicide attempt: Status: Acute (3) Aspiration pneumonia: Status: Acute (4) Seizure disorder: Status: Acute (5) BPH (benign prostatic hyperplasia): Status: Acute (6) COPD (chronic obstructive pulmonary disease): Status: Acute DS: Medications Discharge Medications Home Medications: Home Medications Medication Instructions Recorded Confirmed aspirin 81 mg tablet,delayed 81 mg PO DAILY 02/17/20 02/05/22 release (Adult Aspirin Regimen) melatonin 10 mg capsule 10 mg PO BEDTIME PRN Insomnia 02/17/20 02/05/22 polyethylene glycol 3350 17 17 g PO DAILY PRN Constipation 02/05/22 02/05/22 gram/dose oral powder (Miralax) Previous Rx's Medication Instructions Recorded levetiracetam 500 mg tablet 500 mg PO BID #180 tabs 01/26/21 lorazepam 0.5 mg tablet 0.5 mg PO BEDTIME PRN anxiety #90 06/06/21 tabs mirtazapine 15 mg tablet 15 mg PO BEDTIME 90 days #90 tabs 06/06/21 tamsulosin 0.4 mg capsule 0.4 mg PO DAILY 90 days #90 caps 06/06/21 amoxicillin 875 mg-potassium 1 tab PO Q12H 3 days #6 tabs 02/11/22 clavulanate 125 mg tablet Mental Status Exam Mental Status Exam Patient Appearance: Appropriate Patient Orientation: Person Level of Consciousness: Awake Patient Behavior: Confused Mood Description: Apprehensive Affect Description: Flat Patient Cognition Impaired: Yes Ability to Follow Directions: Poor Speech Pattern: No Speech Hallucinations: None Delusions: Not Present Thought Process: Confusion Thought Content: positive for Poverty of Content Judgement: Poor Data Data Completed and Pending Completed studies during hospitalization [Text1]: 02/12/22 02/16/22 08:00 23:20 Sodium 134 L Potassium 3.7 Chloride 103 Carbon Dioxide 25 Anion Gap 10 L BUN 19 H Creatinine 0.64 Estim Creat Clear Calc TNP Estimated GFR > 60 Fasting Glucose 92 Calcium 7.9 L D Total Bilirubin 0.5 AST 59 H ALT 70 H Alkaline Phosphatase 53 Total Protein 5.2 L Albumin 2.9 L Triglycerides 66 Cholesterol 124 LDL Cholesterol, Calc 81 HDL Cholesterol 30 Urine Color Yellow Urine Appearance Clear Urine pH 6.0 Ur Specific [place] 1.025 Urine Protein Trace Urine Glucose (UA) Negative Urine Ketones Negative Urine Blood Negative Urine Nitrite Negative Ur Leukocyte Esterase Negative DS: Summary Hospital Course Hospital Course: The patient was initially admitted to Psychiatry due to suicidal ideation in the context of noncompliance for several years for major depressive disorder. Also the patient has cognitive decline in the last years. Please see the HPI on the admission note for further details. On admission, his main complaint was insomnia and depression. We started Remeron titrated slowly up to 30 mg p.o. q.h.s. to target insomnia and depression. The patient's mood improved, he was doing much better he was seen in the facility at any to a few groups and we were even thinking of discharge planning to home with ancillary services. Today February 19 while he was having breakfast, suddenly his mental status change, he become hypoactive, with irregular case and unable to speak. A rapid response was called and he was transferred to the emergency room to rule out stroke. The medical team was called and right away the medical treatment was done. Time spent discussing smoking cessation with patient: 3 to 10 minutes Status at Discharge Cognitive/behavioral status at discharge: Altered mental status acute Functional status at discharge: bed bound Overall status at discharge: other (Acutely sick) Time Spent with Patient Time attestation: Total time spent providing and/or coordinating discharge services: Time spent: Less than 30 minutes Discharge Plan Discharge Anticipated Discharge Date/Time: 02/19/22 08:23 Patient Disposition: Xfer Other Discharge Diagnosis: Major depressive disorder recurrent episode severe. Dementia Rule out stroke, transferred to the emergency room for medical workout Referrals: [facility] [Other] - 3-5 Days (Agency called and spoke with katharina Rivera for home visit was scheduled post discharge. ) Dr. Zeke Cobb MD (PCP) [Other] - 1 Week [facility] (medication prescriber) [Other] - 1 Week (Appt) [facility] (therapists) [Other] - 1 Week (Appt) [facility] [Other] - 3-5 Days (Referral made on 02/18/22 for medication teaching and education. [facility] will call and schedule appointment within in 2-3 days of discharge. ) Discharge Medications: New acetaminophen 325 mg Tablet 650 mg PO Q6H PRN (Reason: Headache/Pain Mild Scale (1-3)) Qty: 30 0RF mirtazapine 30 mg Tablet 30 mg PO BEDTIME Qty: 30 0RF quetiapine 50 mg Tablet 50 mg PO BEDTIME Qty: 30 0RF Continued levetiracetam 500 mg tablet 500 mg PO BID Qty: 180 3RF tamsulosin 0.4 mg capsule 0.4 mg PO DAILY 90 Days Qty: 90 2RF lorazepam 0.5 mg tablet 0.5 mg PO BEDTIME PRN (Reason: anxiety) Qty: 90 2RF polyethylene glycol 3350 [Miralax] 17 gram/dose powder 17 g PO DAILY PRN (Reason: Constipation) amoxicillin-pot clavulanate 875-125 mg Tablet 1 tab PO Q12H 3 Days Qty: 6 0RF aspirin [Adult Aspirin Regimen] 81 mg tablet,delayed release (DR/EC) 81 mg PO DAILY melatonin 10 mg capsule 10 mg PO BEDTIME PRN (Reason: Insomnia) Discontinued mirtazapine 15 mg tablet 15 mg PO BEDTIME 90 Days Qty: 90 2RF Discharge Orders: Discharge Order (Routine); Ordered 02/19/22 Ordered By: Hood Duran Activity on Discharge: As tolerated Stand Alone Forms: Patient Portal Discharge page Care Plan Goals: The patient was transferred to the emergency room after altered mental status rule out stroke Health Concerns: The patient was transferred to the emergency room after altered mental status rule out stroke Plan of Treatment: The patient was transferred to the emergency room after altered mental status rule out stroke Assessment: Elderly male with a long history of major depressive disorder not treated admitted for suicidal ideation in the context of worsening of cognition and limited social support. He tried to kill himself and overdose on Seroquel that needed in patient medical treatment due to his. If pneumonia. When medically cleared he was transfer to Psychiatry for treatment. Suddenly, today he had altered mental status rule out stroke and transferred to the emergency room for treatment.
--- NOTE | 2022-02-19 09:01 | PM.NEUROCN ---
History of Present Illness Data of Consult Service Date: 02/19/22 Primary Care Provider: Unknown Physician HPI Reason for consult: Question stroke 82 years old man who was admitted on psychiatric floor for suicidal ideation/attempt with underlying depression and some cognitive issues was noted to have left-sided weakness and stroke protocol was initiated. I saw him after he had the head CT and when he was in emergency room brought there for completion of stroke protocol. He was not sure if there was any new weakness stating that his left arm was always weak. He was not in any distress per apparently he was noted to be either confused or unresponsive during this episode. Review of Systems Review of Systems: Depression and underlying tendency for suicidal ideation PMFSH Past Medical History Medical History Anxiety BPH (benign prostatic hyperplasia) COPD (chronic obstructive pulmonary disease) Hygroma Hypercholesterolemia Hypertension Impaired glucose tolerance Insomnia Peripheral vascular disease Seizure disorder Family History Family History Father Cancer Mother Hypertension Surgical History Surgical History Back pain with history of spinal surgery History of cataract surgery History of cholecystectomy History of nasal surgery History of ventral hernia repair Social History Social History Household Members: None Housing: House Do you presently have visiting nurse or other home services: No Patient Tobacco Use Status: Former Tobacco user Quit Date: 20 years ago. Tobacco use type: Cigarette Cigarette Packs Per Day: 1.5 Cigarettes Per Day: 30.0 e-Cigarette/Vaping Use: Never Used Second Hand Smoke Exposure: No Advance Directives: Yes Advance Directives Information Provided: Yes Advance Directives on File: No service: No Current occupational status: retired Sexual orientation: Straight/Heterosexual Meds Allergies Allergy/AdvReac Type Severity Reaction Status Date / Time No Known Allergies Allergy Verified 02/05/22 19:19 Home Medications Medication Instructions Recorded Confirmed Last Taken Type aspirin 81 mg tablet,delayed 81 mg PO DAILY 02/17/20 02/05/22 02/04/22 History release (Adult Aspirin Regimen) melatonin 10 mg capsule 10 mg PO BEDTIME PRN Insomnia 02/17/20 02/05/22 02/04/22 History polyethylene glycol 3350 17 17 g PO DAILY PRN Constipation 02/05/22 02/05/22 02/04/22 History gram/dose oral powder (Miralax) Physical Exam Vital Signs: Vital Signs: Last Vital Signs Temp 98.2 F 02/18/22 18:00 Pulse 83 02/18/22 18:00 Resp 12 02/18/22 18:00 BP 101/61 02/18/22 18:00 Pulse Ox 93 02/18/22 18:00 O2 Del Method 02/18/22 18:00 BMI result Body Mass Index 21.2 Neuro: Other: He is alert and awake with normal spontaneity of speech fluency comprehension and affect. He is following commands. Pupils are equal and reactive to light. Extraocular muscles are intact. Visual hughes are full. Face is symmetrical. When asked to lift each arm up, his left arm dragged down but he stated that this always was the case. Right plantar is equivocal on left is 5 flexor. When asked to Results Labs CBC & Chem 7: 02/12/22 08:00 Labs: Noncontrast head CT revealed significant atrophy specially of left hemisphere suggesting left abhi atrophy. This might be chronic and might be due to or congenital issues. Assessment and Plan (1) Episode of altered cognition: Status: Acute There is no obvious indication of stroke at this time and treatment such as tPA was not given. He was at high risk for seizure disorder and apparently he had this diagnosis in the past. I would recommend an EEG. Also noted was significant atrophy especially of left hemisphere. If this finding was chronic or present since he was young, this would suggest or congenital etiology resulting in what we used to call cerebral palsy. If that was not the case, an acquired degenerative condition would be a consideration which put him at risk for cognitive difficulties, right-sided weakness, and also seizure disorder. Procedures Date of Service Date of Service: 02/19/22
== END 2022-02-19 08:20 | disposition other institution (70) | DRG 881 ==
PROVIDERS: Registered Nurse; Admitting Provider Psychiatry & Neurology Psychiatry; Visit Provider Psychiatry & Neurology Psychiatry
DX: F32.9 Major depressive disorder, single episode, unspecified (principal); J69.0 Pneumonitis due to inhalation of food and vomit; J43.1 Panlobular emphysema; F41.9 Anxiety disorder, unspecified; E78.00 Pure hypercholesterolemia, unspecified; G40.909 Epilepsy, unspecified, not intractable, without status epilepticus; N40.0 Benign prostatic hyperplasia without lower urinary tract symptoms; I73.9 Peripheral vascular disease, unspecified; Z91.51 Personal history of suicidal behavior; Z87.891 Personal history of nicotine dependence; Z79.82 Long term (current) use of aspirin; Z79.899 Other long term (current) drug therapy
CPT/HCPCS: 36415; 70450; 80053; 80061; 81003; 97110; 97116; 97162

== ENCOUNTER 2022-02-19 08:24 | Observation (INO) | payer MEDICARE, SELFPAY ==
[2022-02-19] VITALS (7 sets, daily range): BP systolic 97–138; BP diastolic 46–75; PULSE 77–175; RESP 14–20; TEMP 36.6–36.9; O2SAT 90–95; BMI 25.0; BMI 22.2
--- NOTE | 2022-02-19 | ECG_ITS ---
Test Reason : increased heart rate Blood Pressure : / mmHG Vent. Rate : 088 BPM Atrial Rate : 088 BPM P-R Int : 098 ms QRS Dur : 108 ms QT Int : 386 ms P-R-T Axes : 025 072 069 degrees QTc Int : 467 ms Poor data quality, interpretation may be adversely affected Sinus rhythm with short DC Incomplete right bundle branch block Possible Lateral infarct (cited on or before 19-FEB-2022) Abnormal ECG When compared with ECG of 07-FEB-2022 00:59, Questionable change in initial forces of Lateral leads Referred By: Marino Velazqueznyu [facility] Electronically Signed By:RAFI RIVAS MD
--- NOTE | 2022-02-19 08:28 | ED.AMS ---
HPI - Altered Mental Status General Chief Complaint: General Medical Stated Complaint: stroke Time Seen by Provider: 02/19/22 08:28 Source: patient, RN notes reviewed and old records reviewed Mode of arrival: other (Stretcher) History of Present Illness HPI narrative: 82-year-old male with past medical history of COPD, seizure disorder, major depression presents to the emergency department today from the [facility] psych floor with a question of stroke. The patient was allegedly on the [facility] psych Unit, and had an episode of altered mental status but he was ?unresponsive. The patient does not specifically remember this incident, but states that currently he has no complaints. The patient was noted to be minimally responsive, and had some left-sided weakness. MD complaint: altered mental status, decreased responsiveness and weakness Timing confirmed by: caregiver Treatments prior to arrival: other (None) Related Data Home Medications Medication Instructions Recorded Confirmed aspirin 81 mg tablet,delayed 81 mg PO DAILY 02/17/20 02/05/22 release (Adult Aspirin Regimen) melatonin 10 mg capsule 10 mg PO BEDTIME PRN Insomnia 02/17/20 02/05/22 polyethylene glycol 3350 17 17 g PO DAILY PRN Constipation 02/05/22 02/05/22 gram/dose oral powder (Miralax) Previous Rx's Medication Instructions Recorded levetiracetam 500 mg tablet 500 mg PO BID #180 tabs 01/26/21 lorazepam 0.5 mg tablet 0.5 mg PO BEDTIME PRN anxiety #90 06/06/21 tabs tamsulosin 0.4 mg capsule 0.4 mg PO DAILY 90 days #90 caps 06/06/21 amoxicillin 875 mg-potassium 1 tab PO Q12H 3 days #6 tabs 02/11/22 clavulanate 125 mg tablet acetaminophen 325 mg tablet 650 mg PO Q6H PRN Headache/Pain 02/19/22 Mild Scale (1-3) #30 tabs mirtazapine 30 mg tablet 30 mg PO BEDTIME #30 tabs 02/19/22 quetiapine 50 mg tablet 50 mg PO BEDTIME #30 tabs 02/19/22 Allergies Allergy/AdvReac Type Severity Reaction Status Date / Time No Known Allergies Allergy Verified 02/05/22 19:19 Review of Systems Constitutional: Constitutional: Denies chills, Denies fever(s), Denies headache(s) and Reports weakness Eyes: Eyes: Denies blurry vision and Denies diplopia ENT: Denies vertigo, Denies dizziness, Denies otalgia and Denies headache(s) Cardiovascular: Cardiovascular: Denies chest pain, Denies rapid heart rate, Denies lightheadedness and Denies dyspnea Respiratory: Respiratory: Denies cough, Denies dyspnea and Denies wheezing Gastrointestinal: Gastrointestinal: Denies abdominal pain and Denies melena Genitourinary: Genitourinary: Denies difficulty urinating and Denies urinary frequency Musculoskeletal: Musculoskeletal: Denies back pain and Denies muscle cramps Neurologic: Reports as per HPI, Denies Abnormal speech present, Denies vertigo, Denies dizziness, Denies headache(s) and Reports weakness Allergic/Immunologic: Allergic/Immunologic: Denies wheezing PMFSH Past Medical History Medical History Anxiety BPH (benign prostatic hyperplasia) COPD (chronic obstructive pulmonary disease) Hygroma Hypercholesterolemia Hypertension Impaired glucose tolerance Insomnia Peripheral vascular disease Seizure disorder Surgical History Back pain with history of spinal surgery History of cataract surgery History of cholecystectomy History of nasal surgery History of ventral hernia repair Family History Family History Father Cancer Mother Hypertension Social History Social History Household Members: None Housing: House Do you presently have visiting nurse or other home services: No Patient Tobacco Use Status: Former Tobacco user Quit Date: 20 years ago. Tobacco use type: Cigarette Cigarette Packs Per Day: 1.5 Cigarettes Per Day: 30.0 e-Cigarette/Vaping Use: Never Used Second Hand Smoke Exposure: No Advance Directives: Yes Advance Directives Information Provided: Yes Advance Directives on File: No service: No Current occupational status: retired Sexual orientation: Straight/Heterosexual Physical Exam ED Vital Signs: Vital Signs - 24 hr 02/19/22 08:42 02/19/22 09:40 Temperature 98.0 F Pulse Rate 89 77 Respiratory Rate 20 20 Blood Pressure 124/63 97/46 L Pulse Oximetry 90 L 90 L Oxygen Delivery Method Room Air Room Air BMI result Body Mass Index 25.0 Noted as per nursing notes Const General: cooperative, comfortable and no acute distress Orientation/consciousness: patient oriented x3 HENMT Head: Yes normal to inspection, Yes normocephalic and Yes atraumatic Ears: external ears normal General nose exam: Normal external nose present Face and sinus: Yes normal facial exam Mouth: Normal oral and palatal mucosa present Eyes Conjunctivae: conjunctivae normal Sclerae: sclerae normal Pupils: Equal, round and reactive pupils present EOM: EOMs intact bilaterally Neck Neck: Yes normal visual inspection and Yes full ROM Resp Effort & Inspection: normal respiratory effort, able to speak in complete sentences and no cough Cardio Rate: regular rate Rhythm: regular rhythm GI Inspection: Yes normal to inspection and No distended Skin General skin exam: no rashes or lesions noted and no erythema Neuro General: patient oriented x3 Cranial nerves: Yes CN's II-XII intact bilaterally, Yes Equal, round and reactive pupils present, Yes Bilaterally intact EOM present, Yes Normal facial strength present and Yes Midline tongue present Speech: No Abnormal speech present Motor exam (neuro): no tremor noted and Abnormal motor strength present left upper extremity other (Patient states this is a chronic problem, may or may not be this weak all the time. RUE, LLE and RLE are 5/5) 2 / 5 Deep tendon reflexes (DTR's): Rt Biceps (C5, C6): 2+, Left biceps reflex intensity grade: 2+, Right patellar reflex intensity grade: 2+ and Left patellar reflex intensity grade: 2+ Extrem General: Yes normal to inspection and Yes full ROM NIH Stroke Scale Internal: Initial- Upon Arrival Time: 08:37 Level of Consciousness: Alert Level of Consciousness Questions: Answers both questions correctly Level of Consciousness Commands: Performs both tasks correctly Best Gaze: Normal Visual: No visual loss Facial Palsy: Normal Motor Arm (Right): No drift Motor Arm (Left): Some effort against gravity Motor Leg (Right): No drift Motor Leg (Left): No drift Limb Ataxia: Absent Sensory: Normal Best Language: No aphasia Dysarthia: Normal Extinction and Inattention: No abnormality Score: 2 Medical Decision Making Medical Decision Making MDM Narrative: 82-year-old male with altered mental status, unresponsiveness on the [facility] psych floor today. Patient was brought to the emergency department questioning a CVA. CT scan showed no acute changes, and physical exam not consistent with stroke. The patient was seen in the emergency department by Dr. Hiro of Neurology, and will be admitted to the medical floor/medical service for additional testing and evaluation. Consideration of admission/observation: Consideration of Admission/Observation Escalation of care admission/observation considered: Escalation of care including admission/observation considered. Patient will be admitted to the hospitalist service Discussion of management with other physician/healthcare provider/other source (e.g., hospitalist, quality consultant, behavioral health): Discussion w/other physician/healthcare provider Management of the patient was discussed with: Floor Layer Helper (Dr. Bosch from neurology, who saw the patient here in the ER) Discussion of test interpretation with radiology: Discussion of test interpretation with radiology Discussed with radiology regarding test interpretation. Discharge Plan Discharge Clinical Impression: Altered level of consciousness Patient Disposition: Admitted As Inpatient Prescriptions: No Action levetiracetam 500 mg tablet 500 mg PO BID Qty: 180 3RF tamsulosin 0.4 mg capsule 0.4 mg PO DAILY 90 Days Qty: 90 2RF lorazepam 0.5 mg tablet 0.5 mg PO BEDTIME PRN (Reason: anxiety) Qty: 90 2RF polyethylene glycol 3350 [Miralax] 17 gram/dose powder 17 g PO DAILY PRN (Reason: Constipation) amoxicillin-pot clavulanate 875-125 mg Tablet 1 tab PO Q12H 3 Days Qty: 6 0RF acetaminophen 325 mg Tablet 650 mg PO Q6H PRN (Reason: Headache/Pain Mild Scale (1-3)) Qty: 30 0RF mirtazapine 30 mg Tablet 30 mg PO BEDTIME Qty: 30 0RF quetiapine 50 mg Tablet 50 mg PO BEDTIME Qty: 30 0RF aspirin [Adult Aspirin Regimen] 81 mg tablet,delayed release (DR/EC) 81 mg PO DAILY melatonin 10 mg capsule 10 mg PO BEDTIME PRN (Reason: Insomnia)
--- NOTE | 2022-02-19 10:31 | PM.IMHP ---
History of Present Illness Date of Service: 02/19/22 Attending physician on admission: [facility] Chief Complaint: Altered mental status Pt is an 82-year-old male with a PMH significant for COPD, BPH, depression, anxiety, HLD, HTN, seizure disorder, and peripheral vascular disease who presented to the ED from the [facility] floor with concern for possible stroke. The pt was apparently sitting in a chair when he became unresponsive with altered mental status, non-reactive eyes, and left-sided upper body weakness. Pt only remembers suddenly feeling himself sliding down in his chair and then being aware of 15 people surrounding him. He denies any left-sided arm or leg pain. Notes chronic peripheral neuropathy at baseline. Has had left-sided arm weakness for over three years, and states he feels he is currently at baseline. No changes in vision or difficulties in speaking or swallowing. No fatigue, lightheadedness or vertigo. Pt has a history of one episode of a tonic-clonic seizure witnessed by his sister but says this episode was very different. He does note he has had a number of medication changes recently and worries that could be contributory. In the ED pt was worked up for a possible stroke. CT showed no acute intracranial findings and physical exam was not consistent with stroke. TPA was thus not indicated. Patient will be admitted to the hospital floor for observation and further workup. Review of Systems Review of Systems: No chest pain or pressure No SOB Denies difficulty speaking or swallowing No change in vision, lightheadedness, or vertigo No left-sided pain or new weakness Yes all other systems are reviewed and are negative [facility] Medical History Anxiety BPH (benign prostatic hyperplasia) COPD (chronic obstructive pulmonary disease) Hygroma Hypercholesterolemia Hypertension Impaired glucose tolerance Insomnia Peripheral vascular disease Seizure disorder Family History Father Cancer Mother Hypertension Surgical History Back pain with history of spinal surgery History of cataract surgery History of cholecystectomy History of nasal surgery History of ventral hernia repair Social History Household Members: None Housing: House Do you presently have visiting nurse or other home services: No Patient Tobacco Use Status: Former Tobacco user Quit Date: 20 years ago. Tobacco use type: Cigarette Cigarette Packs Per Day: 1.5 Cigarettes Per Day: 30.0 Smoked in Last 30 Days: No e-Cigarette/Vaping Use: Never Used Patient Interested in Nicotine Replacement: No Patient Given Instructions on How to Stop Smoking: No Second Hand Smoke Exposure: No Use of substances other than those prescribed or required for medical reasons: No Currently Displaying Signs/Symptoms of Drug Intoxication Withdrawal: No Any prior treatment program specific to substance use: No Have you been hit, kicked, punched, or otherwise hurt by someone within the past year? If so, by whom?: No Do you feel safe in your current relationship?: No Is there a partner from a previous relationship who is making you feel unsafe now?: No Are you made to feel afraid or neglected: No Advance Directives: Yes Advance Directives Information Provided: Yes Advance Directives on File: No Advance Directives Date on File: 02/19/22 Do you have thoughts of harming others: None Do you have a plan to hurt others: No Plan Recently lost weight without trying: No Nutrition Risks: No Nutritional Risk Poor oral hygiene: No service: No Current occupational status: retired Sexual orientation: Straight/Heterosexual Meds Allergies Allergy/AdvReac Type Severity Reaction Status Date / Time No Known Allergies Allergy Verified 02/05/22 19:19 Active Medications: Current Medications Acetaminophen (Acetaminophen 325 Mg Tablet) 650 mg PO Q6H PRN PRN Reason: Pain, Mild (Pain Scale 1-3) Aspirin (Aspirin Enteric Coated 81 Mg Tablet.) 81 mg PO DAILY [facility] Atorvastatin Calcium (Atorvastatin Calcium 10 Mg Tablet) 10 mg PO DAILY [facility] Sodium Chloride (0.9 % Sodium Chloride Flush 3 Ml Syringe) [facility] Medications Medication Instructions Recorded Confirmed Last Taken Type aspirin 81 mg tablet,delayed 81 mg PO DAILY 02/17/20 02/05/22 02/04/22 History release (Adult Aspirin Regimen) melatonin 10 mg capsule 10 mg PO BEDTIME PRN Insomnia 02/17/20 02/05/22 02/04/22 History polyethylene glycol 3350 17 17 g PO DAILY PRN Constipation 02/05/22 02/05/22 02/04/22 History gram/dose oral powder (Miralax) mirtazapine 15 mg tablet 15 mg PO BEDTIME 02/19/22 Unknown History Physical Exam Vital Signs and Narrative: Vital Signs: Last Vital Signs Temp 98.0 F 02/19/22 08:42 Pulse 77 02/19/22 09:40 Resp 20 02/19/22 09:40 BP 97/46 L 02/19/22 09:40 Pulse Ox 90 L 02/19/22 09:40 O2 Del Method 02/19/22 09:40 BMI result Body Mass Index 25.0 Constitutional: Alert, in no acute distress. Mental Status: Oriented to person, place and time. Eyes: Pupils are equal, round, and reactive to light. EOM intact. Toungue midline. Ear, Nose, and Throat: Oropharynx clear, mucous membranes moist. Ears and nose without deformities. Trachea midline. Respiratory: Clear to auscultation bilaterally. No wheezing, rales, or rhonchi. Cardiovascular: S1, S2 regular. No murmurs, rubs, or gallops. Gastrointestinal: Abdomen soft, non-tender, non-distended. Normal bowel sounds. Neurologic: Cranial nerves II-XI are grossly intact. No focal neurological deficits. Moves all extremities spontaneously. Left arm strength 3/5, pt states this chronic 3+ years. RUE, RLE, and LLE 5/5. Upper and lower sensitivity to light touch intact bilaterally. Skin: No rashes of lesions. Musculoskeletal: No cyanosis or clubbing. Extremities: No edema. Psychiatric: Normal mood and affect. Results Labs CBC and Chem 7: 02/19/22 11:27 02/19/22 11:27 Assessment and Plan (1) Altered level of consciousness: Status: Acute (2) Major depressive disorder: Status: Acute Plan Pt is an 82-year-old male with a PMH significant for COPD, BPH, depression, anxiety, HLD, HTN, seizure disorder, and peripheral vascular disease who presented to the ED from the [facility] for an episode of altered mental status. Pt's CT and physical exam were inconsistent with stroke. He will be admitted to observation for further workup and medical management. # altered mental status -- stroke unlikely; CT and physical exam inconsistent with stroke -- nephrology consulted and concluded no obvious indication of a stroke at this time -- tPA not indicated -- EEG, per neurology -- CT showed significant atrophy especially of left hemisphere. Per neurology, if an acquired degenerative condition, this could put pt at risk for cognitive difficulties, right-sided weakness, and seizure disorder. -- CBC, BMP, POC # HTN -- continue home meds # HLD -- continue home meds # peripheral vascular disease -- continue home meds # COPD -- at baseline -- continue home meds # mental health -- continue home meds -- under management of [facility] providers Full code DVT prophylaxis: [place] Attending: Dr. Mclean Pt will be admitted for observation for an anticipated stay of one night. Quality Stroke Does the patient have a stroke diagnosis?: No VTE Prior VTE?: No VTE Risk Level:: Medical - moderate - high VTE Device Contraindication: Treatment Not Indicated VTE Drug Contraindication: N/A - Med Ordered
[2022-02-19 11:46] LABS: Hematocrit 38.5 % (42.0-52.0); Mean Corpuscular HGB Conc 33.8 g/dl (31.0-36.0); Mean Corpuscular Hemoglobin 30.9 pg (27.0-33.0); Mean Corpuscular Volume 91.4 fL (80.0-98.0); Mean Platelet Volume 8.9 fL (9.4-12.4); Platelet Count 195 X10*3/uL (160-400); Red Blood Count 4.21 X10*6/uL (4.60-5.80); Red Cell Distribution Width 13.2 % (11.0-16.0); White Blood Count 4.6 X10*3/uL (4.8-10.8)
[2022-02-19 11:52] LABS: Anion Gap 12 (12-20); Blood Urea Nitrogen 18 mg/dL (9-16); Calcium 8.3 mg/dL (8.4-10.2); Carbon Dioxide 23 mmol/L (22-29); Chloride 104 mmol/L (96-108); Creatinine Clr Calc Pharmacy 77.3; Estimated Glomerular Filt Rate > 60; Glucose Random 98 mg/dL (60-115); Potassium 4.2 mmol/L (3.3-5.1); Sodium 135 mmol/L (135-145)
--- NOTE | 2022-02-19 17:53 | PC.NURSE ---
While pt was in restroom attempting to have BM HR increased to SVT 200 max, other vitasl WNL and pt had no complaints. Md was informed. ECG obtained and pt returned to bed, Hr spont returned to SR/ST 80-110
--- NOTE | 2022-02-19 18:19 | ECG_ITS ---
Test Reason : increased heart rate Blood Pressure : / mmHG Vent. Rate : 085 BPM Atrial Rate : 085 BPM P-R Int : 102 ms QRS Dur : 104 ms QT Int : 398 ms P-R-T Axes : 074 069 061 degrees QTc Int : 473 ms Poor data quality Sinus rhythm with short SC Low voltage QRS Incomplete right bundle branch block Junctional ST depression, probably normal Borderline ECG When compared to the previous EKG of Poor data quality in current ECG precludes serial comparison Referred By: Marino Mclean Electronically Signed By:RAFI RIVAS MD
[2022-02-19 19:45] LABS: Magnesium 1.9 mg/dL (1.6-2.6)
[2022-02-19] MEDS: Mirtazapine 30 MG TABLET PO (23:31)
[2022-02-19] MEDS: 0.9 % Sodium Chloride Flush 3 ML SYRINGE IVFLUSH (23:32)
[2022-02-19] MEDS: traZODone HCL 100 MG TABLET 200 MG PO (23:32)
[2022-02-19] MEDS: levETIRAcetam 500 MG TABLET PO (23:32)
[2022-02-19] MEDS: QUEtiapine Fumarate 50 MG TABLET PO (23:32)
[2022-02-20] VITALS (8 sets, daily range): BP systolic 124–138; BP diastolic 61–86; PULSE 78–116; RESP 16–20; TEMP 36.6–37.3; O2SAT 90–98
--- NOTE | 2022-02-20 | EEG_ITS ---
This is a 16-channel EEG with an EKG lead. The patient is reported awake during the tracing. Background EEG rhythm is 7 to 8 hertz, 5 to 30 microvolt posteriorly and lower amplitude fast anteriorly. Photic stimulation does not produce any significant abnormality. Hyperventilation is not performed. Cardiac lead does not reveal any significant abnormality. No sharp wave spikes or paroxysmal activity noted. IMPRESSION: Generalized slowing that could be seen with dementia. Otherwise, no significant abnormality is noted. MD DOLORES Melendez/PINKY / [id number]
[2022-02-20 06:02] LABS: Glucose, Whole Blood 93 mg/dL (60-115)
[2022-02-20 06:27] LABS: Cholesterol 148 mg/dL; HDL Cholesterol 33 mg/dL; LDL Cholesterol Calculated 102 mg/dl; Triglycerides 67 mg/dL
[2022-02-20] MEDS: Atorvastatin Calcium 10 MG TABLET PO (08:42)
[2022-02-20] MEDS: 0.9 % Sodium Chloride Flush 3 ML SYRINGE IVFLUSH ×3 (08:42→19:43)
[2022-02-20] MEDS: levETIRAcetam 500 MG TABLET PO ×2 (08:42→19:44)
--- NOTE | 2022-02-20 08:53 | HO.PM.IMPN ---
Subjective Subjective Date of Service: 02/20/22 <MAY Ho - Last Filed: 02/20/22 09:14> 02/20/22 <Marino Mclean MD - Last Filed: 02/20/22 10:19> Interval History: Pt seen for f/u for episode of unresponsiveness and weakness while on the [facility]. Interval history: Pt seen resting comfortably in bed. Reports no acute concerns overnight. Denies any recurrence of presenting symptoms. No left-sided arm or leg pain. No lightheadedness or dizziness or fatigue. Denies changes in vision. Reports constipation, which he would like to see relieved with laxatives. <MAY Ho Last Filed: 02/20/22 09:14> Review of Systems No chest pain or pressure No SOB Denies difficulty speaking or swallowing No left-sided pain or new weakness <MAY Ho - Last Filed: 02/20/22 09:14> Review of Systems: Yes all other systems are reviewed and are negative <MAY Ho - Last Filed: 02/20/22 09:14> Physical Exam Vital Signs: Vital Signs: Last Vital Signs Temp 97.8 F 02/20/22 07:05 Pulse 82 02/20/22 07:05 Resp 16 02/20/22 07:05 BP 124/61 02/20/22 07:05 Pulse Ox 94 02/20/22 07:05 O2 Del Method 02/20/22 07:05 BMI result Body Mass Index 22.2 <MAY Ho Last Filed: 02/20/22 09:14> General: AOx3, no acute distress Resp: CTA bilaterally CVS: S1, S2, RRR Eyes: PERRL, EOMI. Tongue midline GI: +BS, NT, no distention Neuro: Motor grossly intact. Cranial nerves II-XI are grossly intact. No focal neurological deficits. Moves all extremities spontaneously. Left arm strength 3/5, which is chronic 3+ years. RUE, RLE, and LLE 5/5. Upper and lower sensitivity to light touch intact bilaterally. Psych: Appropriate affect <MAY Ho Last Filed: 02/20/22 09:14> Objective Data Active Medications Acetaminophen (Acetaminophen 325 Mg Tablet) 650 mg PO Q6H PRN PRN Reason: Headache/Pain Mild Scale (1-3) Aspirin (Aspirin Enteric Coated 81 Mg Tablet.Dr) 81 mg PO BEDTIME [facility] Atorvastatin Calcium (Atorvastatin Calcium 10 Mg Tablet) 10 mg PO DAILY [facility] Last Admin: 02/20/22 08:42 Dose: 10 mg Documented By: JAISONORRHardy Hydroxyzine HCl (Hydroxyzine Hcl 25 Mg Tablet) 25 mg PO Q6H PRN PRN Reason: Agitation Ipratropium Patterson (Ipratropium Patterson 1 Puff/17 Mcg Inhaler) 2 puff INHALE Q4H PRN PRN Reason: Wheezing Levetiracetam (Levetiracetam 500 Mg Tablet) 500 mg PO BID [facility] Last Admin: 02/20/22 08:42 Dose: 500 mg Documented By: CTORRHardy Magnesium Hydroxide (Milk Of Magnesia 30 Ml Oral.Susp) 30 ml PO DAILY PRN PRN Reason: Indigestion Melatonin (Melatonin 3 Mg Tablet) 9 mg PO BEDTIME PRN PRN Reason: Insomnia Mirtazapine (Mirtazapine 30 Mg Tablet) 30 mg PO BEDTIME [facility] Last Admin: 02/19/22 23:31 Dose: 30 mg Documented By: DESTINY Pharmacy Consult (Consult Rx Perform Med Rec) 1 each MISCELLANE ONCE PRN PRN Reason: Consult order Quetiapine Fumarate (Quetiapine Fumarate 50 Mg Tablet) 50 mg PO BEDTIME [facility] Last Admin: 02/19/22 23:32 Dose: 50 mg Documented By: DESTINY Sodium Chloride (0.9 % Sodium Chloride Flush 3 Ml Syringe) 3 ml IVFLUSH QSHIFT [facility] Last Admin: 02/20/22 08:42 Dose: 3 ml Documented By: SATYA Tamsulosin HCl (Tamsulosin Hcl 0.4 Mg Capsule) 0.4 mg PO BEDTIME [facility] Trazodone HCl (Trazodone Hcl 100 Mg Tablet) 200 mg PO BEDTIME PRN PRN Reason: insomnia Last Admin: 02/19/22 23:32 Dose: 200 mg Documented By: DESTINY <MAY Ho - Last Filed: 02/20/22 09:14> Labs CBC & Chem 7: : 02/19/22 11:27 02/19/22 11:27 <MAY Ho - Last Filed: 02/20/22 09:14> Labs: Laboratory Results - last 24 hr 02/19/22 02/19/22 02/20/22 11:27 11:27 05:41 MCV 91.4 MCH 30.9 MCHC 33.8 RDW 13.2 Plt Count 195 MPV 8.9 L Absolute Nucleated RBC 0.000 Nucleated RBC % (auto) 0.0 Anion Gap 12 Estim Creat Clear Calc 77.3 Estimated GFR > 60 POC Glucose Random Glucose 98 Calcium 8.3 L Magnesium 1.9 Triglycerides 67 Cholesterol 148 LDL Cholesterol, Calc 102 HDL Cholesterol 33 02/20/22 05:52 MCV MCH MCHC RDW Plt Count MPV Absolute Nucleated RBC Nucleated RBC % (auto) Anion Gap Estim Creat Clear Calc Estimated GFR POC Glucose 93 Random Glucose Calcium Magnesium Triglycerides Cholesterol LDL Cholesterol, Calc HDL Cholesterol <MAY Ho - Last Filed: 02/20/22 09:14> Assessment and Plan (1) Altered level of consciousness: Status: Acute <MAY Ho - Last Filed: 02/20/22 09:14> Assessment and Plan: Pt is an 82-year-old male with a PMH significant for COPD, BPH, depression, anxiety, HLD, HTN, seizure disorder, and peripheral vascular disease who presented to the ED from the [facility] for an episode of altered mental status. Pt's CT and physical exam were inconsistent with stroke. He was admitted to observation for further workup and medical management. # altered mental status, now resolved -- stroke unlikely; CT and physical exam inconsistent with stroke -- neurology consulted and concluded no obvious indication of a stroke at this time -- tPA not indicated -- EEG, per neurology -- CT showed significant atrophy especially of left hemisphere. Per neurology, if an acquired degenerative condition, this could put pt at risk for cognitive difficulties, right-sided weakness, and seizure disorder. -- CBC, BMP, POC all unremarkable # constipation -- docusate, miralax # HTN -- continue home meds # HLD -- continue home meds # peripheral vascular disease -- continue home meds # COPD -- at baseline -- continue home meds # mental health -- continue home meds -- under management of [facility] providers Full code DVT prophylaxis: Lovenox Attending: Dr. Mclean With no acute concerns overnight and no recurrence of symptoms, pt will likely be discharged later today back to the [facility]. <MAY Ho - Last Filed: 02/20/22 09:14> Quality Stroke Does the patient have a stroke diagnosis?: No <MAY Ho - Last Filed: 02/20/22 09:14> VTE Prior VTE?: No <MAY Ho - Last Filed: 02/20/22 09:14> VTE Risk Level:: Medical - moderate - high <MAY Ho - Last Filed: 02/20/22 09:14> VTE Device Contraindication: Treatment Not Indicated <MAY Ho - Last Filed: 02/20/22 09:14> VTE Drug Contraindication: N/A - Med Ordered <MAY Ho - Last Filed: 02/20/22 09:14>
--- NOTE | 2022-02-20 10:49 | MHC.SLORD ---
Addendum entered and electronically signed by Cassandra Tian MA, CCC-[employer] 02/20/22 17:20: D.S. Original Note: Speech Language Pathology Order Status: Per MD, [employer] swallow evaluation order to be cancelled. [employer] previously recommended chopped/advanced (NDD3) solids d/t status of dentures.
[2022-02-20] MEDS: polyethylene glycoL 3350 17 GM POWD.PACK PO ×2 (11:21→15:39)
[2022-02-20] MEDS: Docusate Sodium 100 MG CAPSULE PO (11:21)
--- NOTE | 2022-02-20 11:49 | MHC.CM.PN ---
spoke with ramón rowan [facility] /psych who reprots pt was to go home with vna ,and [facility] referrals will be made by t/w, ramón will arrange for pts outpt visits at [facility],she also diud a safety plan with nephew which he agreed to ,nephew will do weekly pill box for pt and then will remone all meds from the home pts nephew will tansport pt home when he gets out of work at 430
--- NOTE | 2022-02-20 12:01 | P.F2F_ITS ---
Service Date Service Date: 02/20/22 Encounter Date of encounter: 02/20/22 Reasons for Services Signs and symptoms assessed: weakness Reason for senior care: medication management and teach disease management Reason for physical therapy: home safety and mobility, therapeutic exercises and gait/transfer training Homebound: Leaving the home is medically contraindicated at this time without the asist of a device and/or another person due th the listed conditions above and below. Reason homebound: unsteady gait / fall risk and weakness related to hospital stay Homebound supporting statement: Homebound due to risk of fall, history of stroke chronic weakness and therefore needs the assistance of another person Certification: Based on the above findings, I certify that this patient is confined to the home and needs intermittent senior care care, physical therapy and/or speech therapy, or continues to need occupational therapy. The patient is under my care, and I have initiated the establishment of the plan of care. The patient will be followed by a physician who will periodically review the plan of care.
--- NOTE | 2022-02-20 12:19 | PM.DS ---
DS: Providers Provider Date of Service: 02/21/22 Date of admission: 02/19/22 09:23 Primary care physician: Zeke Cobb MD DS: Diagnosis Discharge Diagnosis (1) Altered level of consciousness: Status: Acute DS: Summary Hospital Course Hospital Course: Chief Complaint: Altered mental status Pt is an 82-year-old male with a PMH significant for COPD, BPH, depression, anxiety, HLD, HTN, seizure disorder, and peripheral vascular disease who presented to the ED from the [facility] floor with concern for possible stroke. The pt was apparently sitting in a chair when he became unresponsive with altered mental status, non-reactive eyes, and left-sided upper body weakness. Pt only remembers suddenly feeling himself sliding down in his chair and then being aware of 15 people surrounding him. He denies any left-sided arm or leg pain. Notes chronic peripheral neuropathy at baseline. Has had left-sided arm weakness for over three years, and states he feels he is currently at baseline. No changes in vision or difficulties in speaking or swallowing. No fatigue, lightheadedness or vertigo. Pt has a history of one episode of a tonic-clonic seizure witnessed by his sister but says this episode was very different. He does note he has had a number of medication changes recently and worries that could be contributory. In the ED pt was worked up for a possible stroke.? CT showed no acute intracranial findings and physical exam was not consistent with stroke. TPA was thus not indicated. Patient will be admitted to the hospital floor for observation and further workup. Hospital course: Patient had been admitted to [facility] for major depression with sucidal thought and was admitted to [facility] since 02/06 and infact was planned to discharged home 02/19 when had an brief episode of unresponsiveness and rapid response was followed by stroke alert. 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 He was seen by Neurologist Dr. Bosch with the following remarks There is no obvious indication of stroke at this time and treatment such as tPA was not given.? He was at high risk for seizure disorder and apparently he had this diagnosis in the past.? I would recommend an EEG.? Also noted was significant atrophy especially of left hemisphere.? If this finding was chronic or present since he was young, this would suggest or congenital etiology resulting in what we used to call cerebral palsy.? If that was not the case, an acquired degenerative condition would be a consideration which put him at risk for cognitive difficulties, right-sided weakness, and also seizure disorder. EEG was done Time Spent with Patient Time attestation: Total time spent providing and/or coordinating discharge services: Discharge coordination time: Greater than 30 minutes Quality: Safe Use of Opioids Does Pt have an Active Cancer Diagnosis on the Problem List?: No Quality: Stroke Does the patient have a stroke diagnosis?: No Physical Exam Vital Signs: Vital Signs: Selected Entries 02/21/22 07:48 Temperature 98.6 F Pulse Rate 79 Respiratory Rate 16 Blood Pressure 128/65 Pulse Oximetry 93 Oxygen Delivery Me thod Room Air Const: Other: General: AO X 3, no acute distress Resp: CTA bilateral CVS: S1,S2,RRR GI: +BS, NT, no distention Skin: No rash Neuro: motor grossly intact Psych: appropriate affect DS: Data Data Completed and Pending Labs on day of discharge: Laboratory Results - last 24 hr 02/19/22 02/20/22 02/20/22 11:27 05:41 05:52 POC Glucose 93 Magnesium 1.9 Triglycerides 67 Cholesterol 148 LDL Cholesterol, Calc 102 HDL Cholesterol 33 Discharge Plan Discharge Anticipated Discharge Date/Time: 02/21/22 10:45 Patient Disposition: Home Health Service Discharge Diagnosis: Transient weakness Referrals: leticia yin [Other] - 1 Week [facility] [Other] - 1 Week [facility] [Other] - 1 Week Po,Zeke López MD [Primary Care Provider] - 1 Week Discharge Medications: New docusate sodium [Colace] 100 mg capsule 100 mg PO BID Qty: 60 0RF polyethylene glycol 3350 [Miralax] 17 gram/dose powder 17 g PO DAILY PRN (Reason: constipation) Qty: 510 0RF Continued levetiracetam 500 mg tablet 500 mg PO BID Qty: 180 3RF mirtazapine 15 mg tablet 30 mg PO BEDTIME trazodone 50 mg tablet 4 tab PO BEDTIME PRN (Reason: insomnia) magnesium hydroxide [Milk of Magnesia] 400 mg/5 mL Suspension 30 ml PO DAILY PRN (Reason: Indigestion) hydroxyzine HCl 25 mg Tablet 25 mg PO Q6H PRN (Reason: Agitation) Atrovent HFA 17 mcg/actuation Hfa Aerosol Inhaler 2 inh INHALATION Q4H PRN (Reason: Wheezing) tamsulosin 0.4 mg capsule 0.4 mg PO BEDTIME acetaminophen 325 mg Tablet 650 mg PO Q6H PRN (Reason: Headache/Pain Mild Scale (1-3)) Qty: 30 0RF quetiapine 50 mg Tablet 50 mg PO BEDTIME Qty: 30 0RF aspirin [Adult Aspirin Regimen] 81 mg tablet,delayed release (DR/EC) 81 mg PO BEDTIME melatonin 10 mg capsule 9 mg PO BEDTIME PRN (Reason: Insomnia) Discharge Orders: Discharge Order (Routine); Ordered 02/21/22 Ordered By: Marino Mclean Diet: Advance to usual diet Activity on Discharge: As tolerated Stand Alone Forms: Patient Portal Discharge page Care Plan Goals: prevent rehospitalization Health Concerns: Major depression chornic weakness Plan of Treatment: Take all your medication as prescribed, Follow up with Psychiatry as previously arranged, Follow up with your Regular doctor in a week, call for appointment take Jonny for constiaption Assessment: as above
[2022-02-20] MEDS: traZODone HCL 100 MG TABLET 200 MG PO (19:43)
[2022-02-20] MEDS: QUEtiapine Fumarate 50 MG TABLET PO (19:43)
[2022-02-20] MEDS: Tamsulosin HCL 0.4 MG CAPSULE PO (19:43)
[2022-02-20] MEDS: Milk of Magnesia 30 ML ORAL.SUSP PO (19:43)
[2022-02-20] MEDS: Mirtazapine 30 MG TABLET PO (19:44)
[2022-02-20] MEDS: Aspirin Enteric Coated 81 MG TABLET.DR PO (19:44)
--- NOTE | 2022-02-21 00:47 | PC.NURSE ---
Pt noted at shift change l c/o rectal pressure and urge to defecate but unable to, previous shift gave Miralax and cloace with small BM passed, pt reports discomfort and anxiety and requesting for fleet enema, prn Maalox given pt encouraged to wait for med to take effect, Dr. Ibarra was updated, fleet Enema was ordered prn, as about to offer enema when but pt was able to have a moderate amount of BM and relieved from discomfort, slept after.
[2022-02-21 02:36] VITALS: BP 103/62; PULSE 107; RESP 18; TEMP 37.1; O2SAT 92
[2022-02-21 07:48] VITALS: BP 128/65; PULSE 79; RESP 16; TEMP 37; O2SAT 93
--- NOTE | 2022-02-21 08:29 | MHC.CM.PN ---
Per MD's request, SUZI spoke with patient's Nephew/Joaquim who will be here at 10AM to transport Patient to home. A referral was made to [facility] (SUZI encouraged Joaquim to make f/u calls to [facility] on this initial referral) and to [facility](SUZI let vna know that Patient will dc home today at 10 AM). Joaquim explained that he refused to order picker Patient yesterday because he was not certain that everything was in place.CM will follow further PRN.
[2022-02-21] MEDS: Atorvastatin Calcium 10 MG TABLET PO (08:40)
[2022-02-21] MEDS: levETIRAcetam 500 MG TABLET PO (08:40)
[2022-02-21] MEDS: 0.9 % Sodium Chloride Flush 3 ML SYRINGE IVFLUSH (08:40)
[2022-02-21] MEDS: Sodium Phosphate,Mono-Dibasic 133 ML ENEMA PR (08:42)
--- NOTE | 2022-02-21 08:59 | MHC.CM.PN ---
Per MD, CM spoke with Patient's Nephew/Joaquim again and changed burr picker time to 1PM in order to give time for the enema to work that RN has just given Patient. CM will follow.
[2022-02-21 11:22] VITALS: BP 123/65; PULSE 78; RESP 14; TEMP 36.5; O2SAT 90
== END 2022-02-21 13:16 | disposition home health service (06) ==
LOC: HO.ED 10:06 → HO.EDOVER 10:14 → HO.IMC 10:50
PROVIDERS: Student in an Organized Health Care Education/Training Program; Admitting Provider Internal Medicine; Emergency Provider Emergency Medicine; PCP Internal Medicine; Visit Provider Internal Medicine
DX: R40.4 Transient alteration of awareness (principal); F32.9 Major depressive disorder, single episode, unspecified; R41.89 Other symptoms and signs involving cognitive functions and awareness; F41.9 Anxiety disorder, unspecified; I10 Essential (primary) hypertension; J44.9 Chronic obstructive pulmonary disease, unspecified; E78.00 Pure hypercholesterolemia, unspecified; N40.0 Benign prostatic hyperplasia without lower urinary tract symptoms; Z91.51 Personal history of suicidal behavior; Z87.891 Personal history of nicotine dependence; Z79.82 Long term (current) use of aspirin; Z79.899 Other long term (current) drug therapy
CPT/HCPCS: 36415; 80048; 80061; 82947; 83735; 85027; 93005; 95816; 97116; 97162; 97166; 97535; 99219; 99285